=== PATIENT | female | born 1995 | race Caucasian/White ===

== ENCOUNTER 2023-05-11 11:35 | Outpatient (OUT) | payer OTHER, SELFPAY ==
[2023-05-11 12:35] LABS: SARS-CoV-2 Ag NEGATIVE (NEGATIVE)
[2023-05-11 14:55] LABS: SARS-CoV-2 NAA NOT DETECTED (NOT DETECTE)
== END 2023-05-11 11:36 | disposition home or self-care (01) ==
PROVIDERS: PCP Nurse Practitioner Family; Visit Provider Nurse Practitioner Family
DX: R05.1 Acute cough (principal)
CPT/HCPCS: 87635; 87811

== ENCOUNTER 2023-11-01 08:56 | Emergency (ER) | payer OTHER, SELFPAY ==
[2023-11-01 09:01] VITALS: BP 156/92; PULSE 95; TEMP 37.5; O2SAT 96; BMI 36.6
--- NOTE | 2023-11-01 09:04 | XR_ITS ---
The [address] [address] Patient Name: LEONA MENDOZA MRN: [id number] date: 1995 Sex: F Assigned Patient Location: ER Current Patient Location: ER Accession/Order Number: [id number] Exam Date: 11/01/2023 09:29 Report Date: 11/01/2023 10:08 At the request of: CHUCKY CASTRO Procedure: XR chest 2V EXAMINATION: XR chest 2V HISTORY: cough COMPARISON: No relevant comparison available. TECHNIQUE: PA and lateral FINDINGS: LUNGS: No significant pulmonary parenchymal abnormalities. VASCULATURE: No increased pulmonary vasculature. PLEURA: No pneumothorax, effusion, or pleural thickening. CARDIAC: No cardiomegaly or cardiac silhouette abnormality. MEDIASTINUM: No visible mass or adenopathy. BONES: No fracture or visible bone lesion. OTHER: Negative. XR/XR chest 2V IMPRESSION: No acute cardiopulmonary process Electronically authenticated by: LAVERN STERN Date: 11/01/2023 10:08
[2023-11-01] MEDS: IPRATROPIUM/ALBUTEROL SULFATE 3 ML AMPUL.NEB IH (09:19)
[2023-11-01 09:21] VITALS: PULSE 101; O2SAT 96
[2023-11-01] MEDS: HYDROCODONE BIT/HOMATROP 5 MG/1.5 MG TABLET 1 TAB PO (09:24)
[2023-11-01 09:30] LABS: Influenza Virus A Antigen Negative; Influenza Virus B Antigen Negative; Internal Control Within Normal Limits; SARS-CoV-2 Ag NEGATIVE (NEGATIVE); Strep A Antigen Screen Negative
--- NOTE | 2023-11-01 09:46 | ED.URI1 ---
HPI - URI/Sore Throat General Chief Complaint: Upper Respiratory Infection Stated Complaint: sob Time Seen by Provider: 11/01/23 08:57 Source: patient Limitations: no limitations History of Present Illness HPI Narrative: Patient presents to ED complaining of upper respiratory infection. She was seen on Monday at the urgent care and started on Zithromax and steroids and inhaler and a cough medication. She states she still cannot stop coughing and she has a lot of bronchospasms and irritation. She has been taking the antibiotic but she has not been taking all of the other medication. She has been on the steroids. She came in with a low-grade fever and mild tachycardia at 101. Both of her kids have been sick at home with similar symptoms. Related Data Home Medications ?Medication ?Instructions ?Recorded ?Confirmed albuterol sulfate 90 mcg/actuation 2 puff inhalation Q4H PRN 11/01/23 11/01/23 aerosol inhaler shortness of breath or wheezing azithromycin 250 mg tablet 250 mg PO DAILY 11/01/23 11/01/23 Previous Rx's ?Medication ?Instructions ?Recorded hydrocodone-homatropine 5 mg-1.5 5 ml PO Q6H PRN cough #60 mL 11/01/23 mg/5 mL (5 mL) oral syrup (Hycodan) Allergies Allergy/AdvReac Type Severity Reaction Status Date / Time Penicillins AdvReac Intermediate yeast Verified 11/01/23 09:01 infection Review of Systems ROS Status of ROS 10 or more systems reviewed and unremarkable except as noted in history and below Exam Narrative Exam Narrative: Time Seen: [] Vital Signs: [Per nurse's notes.] General: [Alert] Skin: [Warm, dry, no rash.] Head: [Normocephalic, atraumatic.] Neck: [Supple, trachea midline.] Eye: [Pupils are equal, round and reactive to light, extraocular movements are intact, normal conjunctiva.] Ears, nose, mouth and throat: oral mucosa moist. Cardiovascular: [Regular rate and rhythm, no murmur.] Respiratory: [Right lower lobe rhonchi. Bronchospasms with severe coughing on examrespirations are non-labored, breath sounds are equal.] Chest wall: [No tenderness, no deformity.] Gastrointestinal: [Soft, nontender, non distended, normal bowel sounds.] MSK: 5 out of 5 muscle strength x 4 extremities no calf pain or edema Lymphatics: [No lymphadenopathy.] Psychiatric: [Cooperative, appropriate mood & affect.] Neurological: [Alert and oriented to person, place, time, and situation, no focal neurological deficit observed.] Constitutional Vital Signs, click to edit/add: Last Vital Signs Temp 99.5 F 11/01/23 09:01 Pulse 101 H 11/01/23 09:21 Resp 20 11/01/23 09:01 BP 156/92 H 11/01/23 09:01 Pulse Ox 96 11/01/23 09:21 O2 Del Method Room Air 11/01/23 09:21 Course Vital Signs Vital signs: Vital Signs Temperature 99.5 F 11/01/23 09:01 Pulse Rate 95 H 11/01/23 09:01 Respiratory Rate 20 11/01/23 09:01 Blood Pressure 156/92 H 11/01/23 09:01 Pulse Oximetry 96 11/01/23 09:01 Oxygen Delivery Method Room Air 11/01/23 09:01 Temperature 99.5 F 11/01/23 09:01 Pulse Rate 101 H 11/01/23 09:21 Respiratory Rate 20 11/01/23 09:01 Blood Pressure 156/92 H 11/01/23 09:01 Pulse Oximetry 96 11/01/23 09:21 Oxygen Delivery Method Room Air 11/01/23 09:21 MDM - URI/Sore Throat MDM Narrative Medical decision making narrative: Patient was given a DuoNeb here as well as some Hycodan p.o. which I think will help with her cough. She was also given Tylenol for her low-grade fever. Patient is feeling better after a DuoNeb and Hycodan. Chest x-ray clear showing no pneumonia. Vital signs improved. Patient is to be discharged home continue her antibiotics and steroids and inhaler. I will also discharge her with Hycodan to help with cough suppression. Patient and family are comfortable care plan for home. Differential Diagnosis Differential diagnosis: Likely upper respiratory infection, viral infection, bronchitis and influenza Medical Records Attestation: I reviewed the patient's medical records. Lab Data Attestation: I reviewed the patient's lab results. Labs: Lab Results 11/01/23 Range/Units 09:10 Influenza Type A Ag Negative Influenza Type B Ag Negative SARS-CoV-2 Ag (CV2AG) Negative (NEGATIVE) Streptococcus Screen Negative Imaging Data Chest x-ray: Radiologist's impression: ITS Impressions Chest X-Ray 11/01/23 09:04 IMPRESSION: No acute cardiopulmonary process Electronically authenticated by: LAVERN STERN Date: 11/01/2023 10:08 Discharge Plan Discharge Stand Alone Forms: Portal Instructions Chief Complaint: Upper Respiratory Infection Clinical Impression: Upper respiratory infection Patient Disposition: Home, Self-Care Time of Disposition Decision: 10:17 Condition: Good Mode of Transportation: Private Vehicle Prescriptions / Home Meds: New hydrocodone-homatropine [Hycodan] 5-1.5 mg/5 mL (5 mL) syrup 5 ml PO Q6H PRN (Reason: cough) Qty: 60 0RF No Action azithromycin 250 mg tablet 250 mg PO DAILY albuterol sulfate 90 mcg/actuation HFA aerosol inhaler 2 puff INHALATION Q4H PRN (Reason: shortness of breath or wheezing) Print Language: Gabonese Instructions: Upper Respiratory Infection (ED), Acute Bronchitis (ED) Referrals: ZAIRE TIJERINA [Primary Care Provider] - 1 week
[2023-11-01] MEDS: ACETAMINOPHEN 325 MG TABLET 650 MG PO (09:47)
[2023-11-01 10:30] VITALS: PULSE 86; O2SAT 97
== END 2023-11-01 10:32 | disposition home or self-care (01) ==
LOC: ER 10:40
PROVIDERS: Emergency Provider Emergency Medicine; PCP Nurse Practitioner Family
DX: J06.9 Acute upper respiratory infection, unspecified (principal); Z79.899 Other long term (current) drug therapy; Z20.822 Contact with and (suspected) exposure to COVID-19
CPT/HCPCS: 71046; 87070; 87804; 87811; 87880; 94640; 99284

== ENCOUNTER 2024-07-28 10:55 | Emergency (ER) | payer OTHER, SELFPAY ==
[2024-07-28 10:59] VITALS: BP 146/89; PULSE 91; TEMP 37.2; O2SAT 98; BMI 41.6
--- OUTSIDE RECORDS SUMMARY | 2024-07-28 11:02 | XMS_ITS | CCD ---
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 Duplex spectral Doppler document arterial and venous spectral waveforms documented within the major arterial inflow and venous outflow of both ovaries. Arterial and venous Doppler duplex spectral waveforms were evaluated. FINDINGS: UTERUS: Size: 11.8 x 7.2 x 4.6 cm. Masses: None. Endometrium: 3 mm. RIGHT OVARY: 6.3 x 5.6 x 4.7 cm.The arterial and venous waveforms are within normal limits. Simple appearing cystic structure without internal septations measuring approximately 5.6 x 4.8 x 4.9 cm, previously measuring up to 4.2 cm LEFT OVARY: 2.4 x 2.2 x 1.5 cm. The arterial and venous waveforms are within normal limits. Unremarkable. FREE FLUID: None. URINARY BLADDER: Unremarkable. IMPRESSION: 1. Enlarging right ovarian cystic structure (5.6 cm versus 4.2 cm on 05/31/2024), though without suspicious features. Follow-up sonographic evaluation in 6-12 months is recommended. 2. Ovaries with preserved vascular flow at the time scanning. Mattie MILLARD, et. al. O-RADS US Risk Stratification and Management System: A Consensus Guideline from the ACR Ovarian-Adnexal Reporting and Data System Committee. Radiology 2020 294:1, 168-415 Finalized by Mio Alvarez MD on 07/26/2024 10:23 AM Normal [facility] CHLAMYDIA/GC BY PCRon 2023 CHLAMYDIA/GC BY PCR SPECIMEN SOURCE CERVIX CHLAMYDIA DNA(PCR) Negative (qualifier value) Chlamydia trachomatis not detected by nucleic acid amplification. This does not exclude the possibility of infection because results are dependent on adequate specimen collection. GONORRHOEAE DNA(PCR) Negative (qualifier value) Neisseria gonorrhoeae not detected by nucleic acid amplification. This does not exclude the possibility of infection because results are dependent on adequate specimen collection. Normal [facility] Comment on above: Performed By: #### C GS #### [facility] ([id number]) [address] [place] [address] URINALYSISon 06-24-2024 Bilirubin Ql (U) Negative Normal NEG [facility] Comment on above: Performed By: #### U A #### [facility] ([id number]) [address], [address] [place] [address] BLOOD/HGB Trace Abnormal NEG [facility] Comment on above: Performed By: #### U A #### [facility] ([id number]) [address], [address] [place] [address] Color (U) YELLOW Normal YELLOW [facility] Comment on above: Performed By: #### U A #### [facility] ([id number]) [address], [address] [place] [address] Glucose Ql (U) Negative Normal NEG [facility] Comment on above: Performed By: #### U A #### [facility] ([id number]) [address], [address] [place] [address] Ketones Ql (U) Negative Normal NEG [facility] Comment on above: Performed By: #### U A #### [facility] ([id number]) [address], [address] [place] [address] Leukocyte esterase Test strip Ql (U) Negative Normal NEG [facility] Comment on above: Performed By: #### U A #### [facility] ([id number]) [address], [address] [place] [address] MUCOUS PRESENT Abnormal NONE [facility] Comment on above: Performed By: #### U A #### [facility] ([id number]) [address], [address] [place] [address] Nitrite Ql (U) Negative Normal NEG [facility] Comment on above: Performed By: #### U A #### [facility] ([id number]) [address], [address] [place] [address] pH (U) 6.0 [pH] Normal 5.0-8.5 [facility] Comment on above: Performed By: #### U A #### [facility] ([id number]) [address], [address] [place] [address] Protein Ql (U) 30 mg/dL Abnormal NEG [facility] Comment on above: Performed By: #### U A #### [facility] ([id number]) [address], [address] [place] [address] R.B.CELLS 2 /hpf Normal 0-5 [facility] Comment on above: Performed By: #### U A #### [facility] ([id number]) [address], [address] [place] [address] Specific gravity (U) [Rel density] 1.036 High 1.003-1.035 [facility] Comment on above: Performed By: #### U A #### [facility] ([id number]) [address], [address] [place] [address] SQUAMOUS EPITHELIUM 9 /hpf High 0-5 [facility] Comment on above: Performed By: #### U A #### [facility] ([id number]) [address], [address] [place] [address] TURBIDITY CLEAR Normal CLEAR [facility] Comment on above: Performed By: #### U A #### [facility] ([id number]) [address], [address] [place] [address] Urobilinogen (U) [Mass/Vol] mg/dL Normal <1.1 [facility] Comment on above: Performed By: #### U A #### [facility] ([id number]) [address], [facility] [address] [place] [address] W.B.CELLS 1 /hpf Normal 0-5 [facility] Comment on above: Performed By: #### U A #### [facility] ([id number]) [address], [address] [address] URINE CULTUREon 06-24-2024 Bacteria identified Cx Nom (U) CULTURE RESULTS >100,000 ORGANISMS/ML NORMAL UROGENITAL PERCY Normal [facility] Comment on above: Performed By: #### 6 30-4 #### [facility] ([id number]) [address], [address] [address] Urinalysison 06-24-2024 Bilirubin Ql (U) Negative Negative^Ne g ative [facility] Color (U) YELLOW YELLOW^YELLO [facility] Epithelial cells Auto (Urine sed) [#/Area] 9 High [facility] Glucose (U) [Mass/Vol] Negative Negative^Neg ative mg/dL [facility] Hemoglobin Auto test strip Ql (U) Trace Abnormal Negative^Neg ative [facility] Interpretation and review of laboratory results Abnormal [facility] Ketones (U) [Mass/Vol] Negative Negative^Neg ative mg/dL [facility] Leukocyte esterase Auto test strip Ql (U) Negative Negative^Neg ative [facility] Mucus Ql (Urine sed) PRESENT Abnormal NONE^NONE [facility] Nitrite Auto test strip Ql (U) Negative Negative^Neg ative [facility] pH (U) 6 [pH] 5.0 - 8.5 [facility] Protein (U) [Mass/Vol] 30 mg/dL Abnormal Negative^Neg ative [facility] RBC Auto (Urine sed) [#/Area] 2 [facility] Specific gravity Refractometry automated (U) [Rel density] 1.036 High 1.003 - 1.035 [facility] Turbidity Ql (U) CLEAR CLEAR^CLEAR [facility] Urobilinogen Qn (U) NINF [facility] WBC Auto (Urine sed) [#/Area] 1 [facility] VAGINITIS PANEL PCRon 2023 VAGINITIS PANEL PCR BACT. VAGINOSIS DNA Not detected (qualifier value) Qualitative results are reported based on detection and quantitation of targeted organism markers which include: Lactobacillus spp. (L. crispatus and L. jensenii), Gardnerella vaginalis, Atopobium vaginae, Bacterial Vaginosis Associated Bacteria-2 (BVAB-2) and Megasphaera-1 MARIA G SPECIES DNA Not detected (qualifier value) Maria G species not detected include: C. albicans, C. tropicalis, C. parapsilosis or C. dubliniensis MARIA G KRUSEI DNA Not detected (qualifier value) No Maria G krusei detected MARIA G GLABRATA DNA Not detected (qualifier value) No Maria G glabrata detected TRICHOMONAS VAG DNA Not detected (qualifier value) No Trichomonas vaginalis detected NOTE BD MAX Vaginal Panel has not been evaluated for patients under 18 years old. Results for these patients should be reviewed and assessed in accordance with clinical presentation to determine patient diagnosis. Normal [facility] Comment on above: Performed By: #### V PPCR #### [facility] ([id number]) [address] [place] [address] CBC AND AUTO DIFFon 06-12-20 24 ABSOLUTE BASOPHIL 0.0 X10E9/L Normal 0.0-0.2 [facility] Comment on above: Performed By: #### C BCA, CMP ####[facility] ([id number])[address] [place] [address] ABSOLUTE NEUTROPHIL 8.0 X10E9/L High 1.5-6.6 [facility] Comment on above: Performed By: #### C BCA, CMP ####[facility] ([id number])[address] [place] [address] Basophils/100 WBC (Bld) 0.2 % Normal [facility] Comment on above: Performed By: #### C JACQUI, CMP ####[facility] ([id number])[address] [place] [address] Eosinophils (Bld) [#/Vol] 0.0 10*3/uL Normal 0.0-0.4 [facility] Comment on above: Performed By: #### C JACQUI, CMP ####[facility] ([id number])[address] [place] [address] Eosinophils/100 WBC (Bld) 0.3 % Normal [facility] Comment on above: Performed By: #### C JACQUI, CMP ####[facility] ([id number])[address] [place] [address] Erythrocyte distribution width (RBC) [Ratio] 13.9 % Normal 11.5-15.0 [facility] Comment on above: Performed By: #### C JACQUI, CMP ####[facility] ([id number])[address] [place] [address] Hematocrit (Bld) [Volume fraction] 42.9 % Normal 35-47 [facility] Comment on above: Performed By: #### C JACQUI, CMP ####[facility] ([id number])[address] [place] [address] Hemoglobin (Bld) [Mass/Vol] 14.7 g/dL Normal 11.7-15.5 [facility] Comment on above: Performed By: #### C JACQUI, CMP ####[facility] ([id number])[address] [place] [address] Lymphocytes (Bld) [#/Vol] 0.5 10*3/uL Low 1.0-3.5 [facility] Comment on above: Performed By: #### C JACQUI, CMP ####[facility] ([id number])[address] [place] [address] 264[address] Lymphocytes/100 WBC (Bld) 5.4 % Normal [facility] Comment on above: Performed By: #### C BCA, CMP ####[facility] ([id number])[address] [place] [address] MCH (RBC) [Entitic mass] 29.8 pg Normal 27-34 [facility] Comment on above: Performed By: #### C BCA, CMP ####[facility] ([id number])[address] [place] [address] MCHC (RBC) [Mass/Vol] 34.3 g/dL Normal 32-36 [facility] Comment on above: Performed By: #### C BCA, CMP ####[facility] ([id number])[address] [place] [address] MCV (RBC) [Entitic vol] 87 fL Normal 80-100 [facility] Comment on above: Performed By: #### C BCA, CMP ####[facility] ([id number])[address] [place] [address] Monocytes (Bld) [#/Vol] 0.3 10*3/uL Normal 0-0.9 [facility] Comment on above: Performed By: #### C BCA, CMP ####[facility] ([id number])[address] [place] [address] 7[address] Monocytes/100 WBC (Bld) 3.7 % Normal [facility] Comment on above: Performed By: #### C BCA, CMP ####[facility] ([id number])[address] [place] [address] 92847 Neutrophils/100 WBC (Bld) 90.4 % Normal [facility] Comment on above: Performed By: #### C BCA, CMP ####[facility] ([id number])[address] [place] [address] 7[address] Platelet mean volume (Bld) [Entitic vol] 9.0 fL Normal 7-12 [facility] Comment on above: Performed By: #### C BCA, CMP ####[facility] ([id number])[address] [place] [address] Platelets (Bld) [#/Vol] 240 10*3/uL Normal 150-450 [facility] Comment on above: Performed By: #### C JACQUI, CMP ####[facility] ([id number])[address] [place] [address] 7[address] RBC COUNT 4.94 X10E12/L Normal 3.80-5.20 [facility] Comment on above: Performed By: #### C JACQUI, CMP ####[facility] ([id number])[address] [place] [address] WBC (Bld) [#/Vol] 8.8 10*3/uL Normal 4.0-11.0 [facility] Comment on above: Performed By: #### C JACQUI, CMP ####[facility] ([id number])[address] [place] [address] COMPREHENSIVE METABOLIC PANE [facility] 06-12-2024 Albumin [Mass/Vol] 4.8 g/dL Normal 3.2-5.3 [facility] Comment on above: Performed By: #### C BCA, CMP ####[facility] ([id number])[address] [place] [address] ALP [Catalytic activity/Vol] 83 U/L Normal 39-130 [facility] Comment on above: Performed By: #### C BCA, CMP ####[facility] ([id number])[address] [place] [address] 31200 ALT [Catalytic activity/Vol] 19 U/L Normal 0-31 [facility] Comment on above: Performed By: #### C BCA, CMP ####[facility] ([id number])[address] [place] [address], [place] [address] Anion gap [Moles/Vol] 11 mmol/L Normal 5-15 [facility] Comment on above: Performed By: #### C BCA, CMP ####[facility] ([id number])[address] [place] [address], [place] [address] AST [Catalytic activity/Vol] 15 U/L Normal 0-41 [facility] Comment on above: Performed By: #### C BCA, CMP ####[facility] ([id number])[address] [place] [address], [place] [address] Bilirubin [Mass/Vol] 0.7 mg/dL Normal 0.3-1.2 [facility] Comment on above: Performed By: #### C BCA, CMP ####[facility] ([id number])[address] [place] [address] [place] [address] Calcium [Mass/Vol] 9.1 mg/dL Normal 8.5-10.5 [facility] Comment on above: Performed By: #### C BCA, CMP ####[facility] ([id number])[address] [place] [address] [place] [address] Chloride [Moles/Vol] 104 mmol/L Normal 98-109 [facility] Comment on above: Performed By: #### C BCA, CMP ####[facility] ([id number])[address] [place] [address] [place] [address] CO2 [Moles/Vol] 23 mmol/L Normal 22-32 [facility] Comment on above: Performed By: #### C BCA, CMP ####[facility] ([id number])[address] [place] [address], [place] [address] Creatinine [Mass/Vol] 0.59 mg/dL Normal 0.40-1.00 [facility] Comment on above: Result Comment: METH OD TRACEABLE TO IDMS STANDARD Performed By: #### C BCA, CMP ####[facility] ([id number])[address] [place] [address] eGFR (CKD-EPI) NON-RACE DEPENDENT >90 Normal >59 [facility] Comment on above: Result Comment: Reported eGFR is based on the CKD-EPI 2020 equation that does not use a race coefficient. Performed By: #### C BCA, CMP ####[facility] ([id number])[address] [place] [address] Glucose [Mass/Vol] 119 mg/dL High 65-99 [facility] Comment on above: Performed By: #### C BCA, CMP ####[facility] ([id number])[address] [place] [address] Potassium [Moles/Vol] 3.8 mmol/L Normal 3.5-5.0 [facility] Comment on above: Performed By: #### C BCA, CMP ####[facility] ([id number])[address] [place] [address]369 Protein [Mass/Vol] 8.3 g/dL High 6.0-8.0 [facility] Comment on above: Performed By: #### C BCA, CMP ####[facility] ([id number])[address] [place] [address] 78568 Sodium [Moles/Vol] 138 mmol/L Normal 134-146 [facility] Comment on above: Performed By: #### C BCA, CMP ####[facility] ([id number])[address] [place] [address]18 Urea nitrogen [Mass/Vol] 19 mg/dL Normal 5-23 [facility] Comment on above: Performed By: #### C BCA, CMP ####[facility] ([id number])[address] [place] [address]666 HCG ( test) Ql (U)o n 06-12-2024 Beta HCG ( test) Ql (U) Negative Normal NEG [facility] Comment on above: Performed By: #### 2 106-3 ####[facility] ([id number])[address] [place] [address] URN MACROSCOPIC NURon 2023 BILIRUBIN THALIA Negative Normal NEG [facility] Comment on above: Performed By: #### N UM ####[facility] ([id number])[address] [place] [address] [place] [address] BLOOD/HGB THALIA Trace Abnormal NEG [facility] Comment on above: Performed By: #### N UM ####[facility] ([id number])[address] [place] [address] [place] [address] GLUCOSE THALIA Negative Normal NEG [facility] Comment on above: Performed By: #### N UM ####[facility] ([id number])[address] [place] [address] [place] [address] KETONES THALIA Negative Normal NEG [facility] Comment on above: Performed By: #### N UM ####[facility] ([id number])[address] [place] [address] [place] [address] LEUKOCYTE ESTERASE THALIA Negative Normal NEG [facility] Comment on above: Performed By: #### N UM ####[facility] ([id number])[address] [place] [address] [place] [address] NITRITE THALIA Negative Normal NEG [facility] Comment on above: Performed By: #### N UM ####[facility] ([id number])[address] [place] [address] [place] [address] PH THALIA 6.5 Normal 5.0-8.5 [facility] Comment on above: Performed By: #### N UM ####[facility] ([id number])[address] [place] [address] PROTEIN THALIA Trace Abnormal NEG [facility] Comment on above: Performed By: #### N UM ####[facility] ([id number])[address] [place] [address] SPECIFIC GRAVITY THALIA 1.025 Normal 1.003-1.035 [facility] Comment on above: Performed By: #### N UM ####[facility] ([id number])[address] [place] [address] 09906 UROBILINOGEN THALIA 0.2 eu/dL Normal <1.1 [facility] Comment on above: Performed By: #### N UM ####[facility] ([id number])[address] [place] [address] COMPLETE BLOOD COUNTon 05-31 Erythrocyte distribution width (RBC) [Ratio] 13.9 % Normal 11.5-15.0 [facility] Comment on above: Performed By: #### C CAROL, THYR #### [facility] ([id number]) [address] [place] [address] Hematocrit (Bld) [Volume fraction] 42.2 % Normal 35-47 [facility] Comment on above: Performed By: #### C BC, THYR #### [facility] ([id number]) [address], [address] [place] [address] Hemoglobin (Bld) [Mass/Vol] 14.1 g/dL Normal 11.7-15.5 [facility] Comment on above: Performed By: #### C BC, THYR #### [facility] ([id number]) [address], [address] [place] [address] MCH (RBC) [Entitic mass] 29.3 pg Normal 27-34 [facility] Comment on above: Performed By: #### C CAROL, THYR #### [facility] ([id number]) [address], [address] [place] [address] MCHC (RBC) [Mass/Vol] 33.4 g/dL Normal 32-36 [facility] Comment on above: Performed By: #### C CAROL, THYR #### [facility] ([id number]) [address] [place] [address] MCV (RBC) [Entitic vol] 88 fL Normal 80-100 [facility] Comment on above: Performed By: #### C CAROL, THYR #### [facility] ([id number]) [address], [address] [place] [address] Platelet mean volume (Bld) [Entitic vol] 9.4 fL Normal 7-12 [facility] Comment on above: Performed By: #### C CAROL, THYR #### [facility] ([id number]) [address] [place] [address] Platelets (Bld) [#/Vol] 238 10*3/uL Normal 150-450 [facility] Comment on above: Performed By: #### C CAROL, THYR #### [facility] ([id number]) [address] [place] [address] RBC COUNT 4.80 X10E12/L Normal 3.80-5.20 [facility] Comment on above: Performed By: #### C BC, THYR #### [facility] ([id number]) [address] [place] [address] WBC (Bld) [#/Vol] 6.3 10*3/uL Normal 4.0-11.0 [facility] Comment on above: Performed By: #### C CAROL, THYR #### [facility] ([id number]) [address] [place] [address] THYROID PROFILEon 05-31-2024 Free T4 [Mass/Vol] 0.77 ng/dL Normal 0.61-1.60 [facility] Comment on above: Result Comment: NEW REFERENCE RANGE FOR PEDIATRIC PATIENTS Performed By: #### C BC, THYR #### [facility] ([id number]) [address] [place] [address] TSH 3.51 uIU/mL Normal 0.49-4.67 [facility] Comment on above: Result Comment: NEW REFERENCE RANGE FOR PEDIATRIC PATIENTS Performed By: #### C BC, THYR #### [facility] ([id number]) [address] [place] [address] US PELVIC WITH TRANSVAGINALo n 05-31-2024 US PELVIC WITH TRANSVAGINAL US PELVIC WITH TRANSVAGINAL US PELVIC WITH TRANSVAGINAL HISTORY: Dysmenorrhea, menorrhagia with irregular cycle, painful periods COMPARISON: 02/24/2022 TECHNIQUE: Transabdominal and transvaginal sonographic evaluation of the pelvis. Transabdominal imaging performed to evaluate for extra adnexal pelvic pathology. Transvaginal imaging performed for better delineation of the adnexal and endometrial contents. Color Doppler used. FINDINGS: Uterus: 9.8 x 6.4 x 5.3 centimeters Endometrial Thickness: 0.6 cm Right Ovary: 4.9 x 4.3 x 3.6 cm Left Ovary: 3.6 x 2.9 x 2.1 cm The uterus demonstrates appropriate size and echo pattern. The endometrium is unremarkable. Trace fluid within the endocervical canal There is a homogeneously hypoechoic structure in the right ovary, measures 4.2 x 3.1 x 2.9 cm . There is no internal associated Doppler flow. Physiologic peripheral follicles within the otherwise unremarkable left ovary. Normal color ovarian flow bilaterally No pathologic free fluid. IMPRESSION: A hypoechoic lesion in the right ovary measuring 4.2 cm, potentially hemorrhagic cyst or endometrioma. Depending on context/suspicion, follow-up ultrasound after 2-3 cycles versus MRI correlation could be pursued.. Recommendations for adnexal cyst follow-up per Society of Radiologists in Ultrasound 2009 consensus statement on management of asymptomatic and ovarian and other adnexal cysts (Anna et al., Radiology 2010 256: 943-54). Approved by Galo Salgado DO on 05/31/2024 10:40 AM IManny MD have personally reviewed the image(s) and agree with and/or edited the report Finalized by Manny Silva MD on 05/31/2024 11:29 AM Normal [facility] XR CHEST 1 VWon 05-12-2024 XR CHEST 1 VW XR CHEST 1 VW XR CHEST 1 VW 05/12/2024 12:35 AM INDICATION: Chest pain, left lateral breast pain COMPARISON: XR chest 10/30/2023 TECHNIQUE: AP upright radiographic view(s) obtained. FINDINGS: Lines/Tubes/Devices: None. Respiratory: No pneumothorax, pleural effusion, or focal consolidation. Cardiomediastinum: Nonenlarged. IMPRESSION: * No acute pulmonary process. Approved by Resident: Pawan Tolliver MD on 05/12/2024 12:52 AM IRobert MD have personally reviewed the image(s) and agree with and/or edited the report Finalized by Robert Holland MD on 05/12/2024 1:05 AM Normal [facility] XR HUMERUS RT MIN 2 VWSon XR HUMERUS RT MIN 2 VWS XR HUMERUS RT MIN 2 VWS XR HUMERUS RT MIN 2 VWS HISTORY: Right upper arm pain, decreased range of motion, right arm injury. COMPARISON: None. FINDINGS: No acute fracture or dislocation. No radiopaque foreign body. Osseous structures are well mineralized without significant degenerative changes. Visualized right lung is clear. IMPRESSION: Unremarkable radiographs of the humerus. Approved by Resident Cortney Arreola MD on 01/07/2024 11:54 PM Mc Vaughn MD have personally reviewed the image(s) and agree with and/or edited the report Finalized by Mc Nathan MD on 01/08/2024 12:00 AM Normal [facility] BASIC METABOLIC PANLon 12-04 Anion gap [Moles/Vol] 6 mmol/L Normal -15 [facility] Comment on above: Performed By: #### [facility], 94130-2 #### [facility] ([id number]) [address] [place] [address] 60826 Calcium [Mass/Vol] 8.8 mg/dL Normal 8.5-10.5 [facility] Comment on above: Performed By: #### [facility], #### [facility] ([id number]) [address] [place] [address] 63129 Chloride [Moles/Vol] 105 mmol/L Normal 98-109 [facility] Comment on above: Performed By: #### C KELBY OSMAN, #### [facility] ([id number]) [address] [place] [address] 20294 CO2 [Moles/Vol] 24 mmol/L Normal 22-32 [facility] Comment on above: Performed By: #### [facility], 49021-3 #### [facility] ([id number]) [address] [place] [address] 96084 Creatinine [Mass/Vol] 0.59 mg/dL Normal 0.40-1.00 [facility] Comment on above: Result Comment: METH OD TRACEABLE TO IDMS STANDARD Performed By: #### C KELBY OMSAN, #### [facility] ([id number]) [address] [place] [address] 35983 eGFR (CKD-EPI) NON-RACE DEPENDENT >90 Normal >59 [facility] Comment on above: Result Comment: Reported eGFR is based on the CKD-EPI 2020 equation that does not use a race coefficient. Performed By: #### C KELBY OSMAN, #### [facility] ([id number]) [address] [place] [address] 42305 Glucose [Mass/Vol] 111 mg/dL High 65-99 [facility] Comment on above: Performed By: #### C KELBY OSMAN, #### [facility] ([id number]) [address] [place] [address] 26010 Potassium [Moles/Vol] 3.7 mmol/L Normal 3.5-5.0 [facility] Comment on above: Performed By: #### [facility], #### [facility] ([id number]) [address] [place] [address] 85068 Sodium [Moles/Vol] 135 mmol/L Normal 134-146 [facility] Comment on above: Performed By: #### KELBY Loco BCA, #### [facility] ([id number]) [address] [place] [address] 27477 Urea nitrogen [Mass/Vol] 16 mg/dL Normal 5-23 [facility] Comment on above: Performed By: #### Beronica [facility]SM[facility], #### [facility] ([id number]) [address] [place] [address] 03206 CBC AND AUTO DIFFon 12-05-19 24 ABSOLUTE BASOPHIL 0.0 X10E9/L Normal 0.0-0.2 [facility] Comment on above: Performed By: #### KELBY Loco BCA, #### [facility] ([id number]) [address] [place] [address] 19279 ABSOLUTE NEUTROPHIL 4.8 X10E9/L Normal 1.5-6.6 [facility] Comment on above: Performed By: #### C KELBY OSMAN, #### [facility] ([id number]) [address] [place] [address] 40383 Basophils/100 WBC (Bld) 0.5 % Normal [facility] Comment on above: Performed By: #### KELBY Loco BCA, #### [facility] ([id number]) [address] [place] [address] 37949 Eosinophils (Bld) [#/Vol] 0.1 10*3/uL Normal 0.0-0.4 [facility] Comment on above: Performed By: #### KELBY Loco BCA, #### [facility] ([id number]) [address] [place] [address] 73946 Eosinophils/100 WBC (Bld) 1.5 % Normal [facility] Comment on above: Performed By: #### Beronica [facility], #### [facility] ([id number]) [address] [place] [address] 55709 Erythrocyte distribution width (RBC) [Ratio] 13.6 % Normal 11.5-15.0 [facility] Comment on above: Performed By: #### Beronica [facility]SM[facility], #### [facility] ([id number]) [address] [place] [address] 13543 Hematocrit (Bld) [Volume fraction] 39.5 % Normal 35-47 [facility] Comment on above: Performed By: #### Beronica [facility]SM[facility], #### [facility] ([id number]) [address] [place] [address] 19881 Hemoglobin (Bld) [Mass/Vol] 13.2 g/dL Normal 11.7-15.5 [facility] Comment on above: Performed By: #### Beronica [facility]SMAN [facility], #### [facility] ([id number]) [address] [place] [address] 29800 Lymphocytes (Bld) [#/Vol] 2.3 10*3/uL Normal 1.0-3.5 [facility] Comment on above: Performed By: #### KELBY Loco BCA, #### [facility] ([id number]) [address] [place] [address] 55695 Lymphocytes/100 WBC (Bld) 29.7 % Normal [facility] Comment on above: Performed By: #### KELBY Loco BCA, #### [facility] ([id number]) [address] [place] [address] 81790 MCH (RBC) [Entitic mass] 29.0 pg Normal 27-34 [facility] Comment on above: Performed By: #### KELBY Loco BCA, #### [facility] ([id number]) [address] [place] [address] 26639 MCHC (RBC) [Mass/Vol] 33.4 g/dL Normal 32-36 [facility] Comment on above: Performed By: #### KELBY Loco BCA, #### [facility] ([id number]) [address] [place] [address] 43183 MCV (RBC) [Entitic vol] 87 fL Normal 80-100 [facility] Comment on above: Performed By: #### KELBY Loco BCA, #### [facility] ([id number]) [address] [place] [address] 28843 Monocytes (Bld) [#/Vol] 0.5 10*3/uL Normal 0-0.9 [facility] Comment on above: Performed By: #### KELBY Loco BCA, #### [facility] ([id number]) [address] [place] [address] 03833 Monocytes/100 WBC (Bld) 6.1 % Normal [facility] Comment on above: Performed By: #### KELBY Loco BCA, #### [facility] ([id number]) [address] [place] [address] 48870 Neutrophils/100 WBC (Bld) 62.2 % Normal [facility] Comment on above: Performed By: #### KELBY Loco BCA, #### [facility] ([id number]) [address] [place] [address] 57998 Platelet mean volume (Bld) [Entitic vol] 8.9 fL Normal 7-12 [facility] Comment on above: Performed By: #### KELBY Loco BCA, #### [facility] ([id number]) [address] [place] [address] 57258 Platelets (Bld) [#/Vol] 285 10*3/uL Normal 150-450 [facility] Comment on above: Performed By: #### KELBY Loco BCA, #### [facility] ([id number]) [address] [place] [address] 63270 RBC COUNT 4.56 X10E12/L Normal 3.80-5.20 [facility] Comment on above: Performed By: #### Beronica [facility]SMAN [facility], #### [facility] ([id number]) [address] [place] [address] 11699 WBC (Bld) [#/Vol] 7.7 10*3/uL Normal 4.0-11.0 [facility] Comment on above: Performed By: #### KELBY Loco BCA, #### [facility] ([id number]) [address] [place] [address] 35318 MAGNESIUMon 12-05-2023 Magnesium [Mass/Vol] 2.1 mg/dL Normal 1.8-2.6 [facility] Comment on above: Performed By: #### KELBY Loco BCA, #### [facility] ([id number]) [address] [place] [address] 60242 XR CHEST 2 VWSon 10-30-2023 XR CHEST 2 VWS XR CHEST 2 VWS History: Cough Technique: Frontal and lateral views the chest were obtained. Comparison: 06/27/2023 Findings: There is no evidence for active cardiovascular or pulmonary disease. The heart size is within normal limits and the lung hawthorne are clear. Impression: Normal chest. Finalized by Russell Henry MD on 10/30/2023 1:04 AM Normal [facility] URINALYSISon 10-16-2023 Bilirubin Ql (U) Negative Normal NEG [facility] BLOOD/HGB Negative Normal NEG [facility] Color (U) YELLOW Normal YELLOW [facility] Glucose Ql (U) Negative Normal NEG [facility] Ketones Ql (U) Negative Normal NEG [facility] Leukocyte esterase Test strip Ql (U) Negative Normal NEG [facility] Nitrite Ql (U) Negative Normal NEG [facility] pH (U) 5.5 [pH] Normal 5.0-8.5 [facility] Protein Ql (U) Negative Normal NEG [facility] Specific gravity (U) [Rel density] 1.026 Normal 1.003-1.035 [facility] TURBIDITY CLEAR Normal CLEAR [facility] Urobilinogen (U) [Mass/Vol] mg/dL Normal <1.1 [facility] URINE CULTUREon 10-16-2023 Bacteria identified Cx Nom (U) CULTURE RESULTS 10-50,000 ORGANISMS/mL NORMAL UROGENITAL PERCY Normal [facility] Comment on above: Performed By: #### 6 30-4 #### [facility] ([id number]) [address], [address] [place] [address] XR HUMERUS LT MIN 2 VWSon XR HUMERUS LT MIN 2 VWS XR HUMERUS LT MIN 2 VWS 2 views of the left humerus dated 08/10/2023 at 6:55 PM INDICATION: Pain in the left arm FINDINGS: No comparisons available. There is a linear foreign body projecting over the posterior medial soft tissues of the arm, approximately 6 cm above the elbow. No acute osseous abnormalities seen in the left humerus. IMPRESSION: 1. No acute osseous abnormality seen in the left humerus. 2. Linear foreign body projecting over the posteromedial soft tissues of the left arm. Finalized by Honey Dupree MD on 08/10/2023 7:39 PM Normal [facility] CBC AUTO DIFFon 05-04-2022 BASO # 0.0 103/ul Normal 0.0-0.1 [facility] Comment on above: Performed By: #### T 7, TSH, CMP, PREGQNT #### [facility] [address] [place] [address] Dr. Wilian Santos Basophils/100 WBC (Bld) 0.3 % Normal 0.2-2.0 [facility] Comment on above: Performed By: #### T 7, TSH, CMP, PREGQNT #### [facility] [address] [place] [address] Dr. Wilian Santos EO # 0.1 103/ul Normal 0.0-0.7 [facility] Comment on above: Performed By: #### T 7, TSH, CMP, PREGQNT #### [facility] [address] [place] [address] Dr. Wilian Santos Eosinophils/100 WBC (Bld) 0.9 % Normal 0.9-7.0 [facility] Comment on above: Performed By: #### T 7, TSH, CMP, PREGQNT #### [facility] [address] [place] [address] Dr. Wilian Santos Erythrocyte distribution width (RBC) [Ratio] 14.1 % Normal 11.0-15.0 [facility] Comment on above: Performed By: #### T 7, TSH, CMP, PREGQNT #### [facility] [address] [place] [address] Dr. Wilian Santos Hematocrit (Bld) [Volume fraction] 40.3 % Normal 36.0-48.0 [facility] Comment on above: Performed By: #### T 7, TSH, CMP, PREGQNT #### [facility] [address] [place] [address] Dr. Wilian Santos Hemoglobin (Bld) [Mass/Vol] 12.9 g/dL Normal 12.0-16.0 [facility] Comment on above: Performed By: #### T 7, TSH, CMP, PREGQNT #### [facility] [address] [address] [address] Wilian Santos IG # 0.04 10e3/ul Critically high 0.00-0.03 [place] Comment on above: Performed By: #### T 7, TSH, CMP, PREGQNT #### [facility] [address] [place] [address] Dr. Wilian Santos IG % 0.5 % Normal 0.0-0.5 [facility] Comment on above: Performed By: #### T 7, TSH, CMP, PREGQNT #### [facility] [address] [place] [address] Dr. Wilian Santos LYMPH # 1.7 103/ul Normal 1.2-3.8 [facility] Comment on above: Performed By: #### T 7, TSH, CMP, PREGQNT #### [facility] [address] [place] [address] Dr. Wilian Santos Lymphocytes/100 WBC (Bld) 19.3 % Critically low 20.5-60.0 [facility] Comment on above: Performed By: #### T 7, TSH, CMP, PREGQNT #### [facility] [address] [place] [address] Dr. Wilian Santos MANUAL DIFF REQ NO Normal [facility] Comment on above: Performed By: #### T 7, TSH, CMP, PREGQNT #### [facility] [address] [place] [address] Dr. Wilian Santos MCH (RBC) [Entitic mass] 27.7 pg Normal 26.7-34.0 [facility] Comment on above: Performed By: #### T 7, TSH, CMP, PREGQNT #### [facility] [address] [place] [address] Dr. Wilian Santos MCHC (RBC) [Mass/Vol] 32.0 g/dL Normal 29.9-35.2 [facility] Comment on above: Performed By: #### T 7, TSH, CMP, PREGQNT #### [facility] [address] [place] [address] Dr. Wilian Santos MCV (RBC) [Entitic vol] 86.5 fL Normal 81.0-99.0 [facility] Comment on above: Performed By: #### T 7, TSH, CMP, PREGQNT #### [facility] [address] [place] [address] Dr. Wilian Santos MONO # 0.6 103/ul Normal 0.3-0.8 [facility] Comment on above: Performed By: #### T 7, TSH, CMP, PREGQNT #### [facility] [address] [place] [address] Dr. Wilian Santos Monocytes/100 WBC (Bld) 6.3 % Normal 1.7-12.0 [facility] Comment on above: Performed By: #### T 7, TSH, CMP, PREGQNT #### [facility] [address] [place] [address] Dr. Wilian Santos NEUT # 6.3 103/ul Normal 1.4-6.5 [facility] Comment on above: Performed By: #### T 7, TSH, CMP, PREGQNT #### [facility] [address] [place] [address] Dr. Wilian Santos Neutrophils/100 WBC (Bld) 72.7 % Normal 43.0-75.0 [facility] Comment on above: Performed By: #### T 7, TSH, CMP, PREGQNT #### [facility] [address] [place] [address] Dr. Wilian Santos Platelet mean volume (Bld) [Entitic vol] 10.9 fL Normal 9.5-13.5 [facility] Comment on above: Performed By: #### T 7, TSH, CMP, PREGQNT #### [facility] [address] [place] [address] Dr. Wilian Santos PLT 278 103/ul Normal 150-450 [facility] Comment on above: Performed By: #### T 7, TSH, CMP, PREGQNT #### [facility] [address] [place] [address] Dr. Wilian Santos RBC 4.66 106/ul Normal 4.20-5.40 [facility] Comment on above: Performed By: #### T 7, TSH, CMP, PREGQNT #### [facility] [address] [address] [address] Wilian Santos WBC 8.7 103/ul Normal 4.0-11.0 [facility] Comment on above: Performed By: #### T 7, TSH, CMP, PREGQNT #### [facility] [address] [place] [address] Dr. Wilian Santos FREE THYROXINE INDEX T7on FTI 3.37 Normal 1.30-4.50 [facility] Comment on above: Performed By: #### T 7, TSH, CMP, PREGQNT #### [facility] [address] [place] [address] Dr. Wilian Santos T3U 34.0 % Normal 30.0-39.0 [facility] Comment on above: Performed By: #### T 7, TSH, CMP, PREGQNT #### [facility] [address] [place] [address] Dr. Wilian Santos T4 [Mass/Vol] 9.90 ug/dL Normal 4.80-13.[address] [facility] Comment on above: Performed By: #### T 7, TSH, CMP, PREGQNT #### [facility] [address] [place] [address] Dr. Wilian Santos GLYCOHEMOGLOBIN A1Con 2021 ADA RECOMMENDATION SEE BELOW Normal [facility] Comment on above: Result Comment: ADA RECOMMENDED LIMIT 4.0 - 6.0 ADA THERAPEUTIC TARGET < 7.0 ACTION SUGGESTED > 7.0 Performed By: #### A 1C #### [facility] [address] [place] [address] Dr. Wilian Santos Glucose [Mass/Vol] 108 mg/dL Normal [facility] Comment on above: Performed By: #### A 1C #### [facility] [address] [place] [address] Dr. Wilian Santos HbA1c (Bld) [Mass fraction] 5.4 % Normal 4.5-6.2 [facility] Comment on above: Performed By: #### A 1C #### [facility] [address] [place] [address] Dr. Wilian Santos PREG QUANT HCGon 05-04-2022 HCG QUANT 1387 mIU/mL Normal [facility] Comment on above: Performed By: #### T 7, TSH, CMP, PREGQNT #### [facility] [address] [place] [address] Dr. Wilian Santos HCG RANGE SEE BELOW Normal [facility] Comment on above: Result Comment: 5-50 0.2-1 WEEK 50-500 1-2 WEEKS 100-5,000 2-3 WEEKS 500-10,000 3-4 WEEKS 1,000-50,000 4-5 WEEKS 10,000-100,000 5-6 WEEKS 15,000-200,000 6-8 WEEKS 10,000-100,000 2-3 MONTHS Performed By: #### T 7, TSH, CMP, PREGQNT #### [facility] [address] [place] [address] Dr. Wilian Santos PROF 14(COMP METB)on 022 Albumin [Mass/Vol] 4.0 g/dL Normal 3.4-5.0 [facility] Comment on above: Performed By: #### T 7, TSH, CMP, PREGQNT #### [facility] [address] [place] [address] Dr. Wilian Santos Albumin/Globulin [Mass ratio] 1.1 {ratio} Normal [facility] Comment on above: Performed By: #### T 7, TSH, CMP, PREGQNT #### [facility] [address] [place] [address] Dr. Wilian Santos ALP [Catalytic activity/Vol] 76 U/L Normal 46-116 [facility] Comment on above: Performed By: #### T 7, TSH, CMP, PREGQNT #### [facility] [address] [place] [address] Dr. Wilian Santos ALT [Catalytic activity/Vol] 16 U/L Normal 14-59 [facility] Comment on above: Performed By: #### T 7, TSH, CMP, PREGQNT #### [facility] [address] [address] [address] Wilian Santos Anion gap [Moles/Vol] 8.9 mmol/L Normal [facility] Comment on above: Performed By: #### T 7, TSH, CMP, PREGQNT #### [facility] [address] [address] [address] Wilian Santos AST [Catalytic activity/Vol] 10 U/L Critically low 15-37 [facility] Comment on above: Performed By: #### T 7, TSH, CMP, PREGQNT #### [facility] [address] [place] [address] Dr. Wilian Santos Bilirubin [Mass/Vol] 0.4 mg/dL Normal 0.2-1.0 [facility] Comment on above: Performed By: #### T 7, TSH, CMP, PREGQNT #### [facility] [address] [address] [address] Wilian Santos Calcium [Mass/Vol] 8.8 mg/dL Normal 8.5-10.1 [facility] Comment on above: Performed By: #### T 7, TSH, CMP, PREGQNT #### [facility] [address] [place] [address] Dr. Wilian Santos Chloride [Moles/Vol] 105 mmol/L Normal 98-107 [facility] Comment on above: Performed By: #### T 7, TSH, CMP, PREGQNT #### [facility] [address] [place] [address] Dr. Wilian Santos CO2 [Moles/Vol] 26.4 mmol/L Normal 21.0-32.0 [facility] Comment on above: Performed By: #### T 7, TSH, CMP, PREGQNT #### [facility] [address] [place] [address] Dr. Wilian Santos Creatinine [Mass/Vol] 0.62 mg/dL Normal 0.55-1.02 [facility] Comment on above: Performed By: #### T 7, TSH, CMP, PREGQNT #### [facility] [address] [address] [address] Wilian Santos EGFR-AF [place] >60 Normal >=60 [facility] Comment on above: Performed By: #### T 7, TSH, CMP, PREGQNT #### [facility] [address] [address] [address] Wilian Santos EGFR-NON AF [place] >60 Normal >=60 [facility] Comment on above: Performed By: #### T 7, TSH, CMP, PREGQNT #### [facility] [address] [address] [address] Wilian Santos Globulin (S) [Mass/Vol] 3.8 g/dL Normal [facility] Comment on above: Performed By: #### T 7, TSH, CMP, PREGQNT #### [facility] [address] [place] [address] Dr. Wilian Santos Glucose [Mass/Vol] 92 mg/dL Normal 74-106 [facility] Comment on above: Performed By: #### T 7, TSH, CMP, PREGQNT #### [facility] [address] [address] [address] Wilian Santos Potassium [Moles/Vol] 3.3 mmol/L Critically low 3.5-5.1 [facility] Comment on above: Performed By: #### T 7, TSH, CMP, PREGQNT #### [facility] [address] [address] [address] Wilian Santos Protein [Mass/Vol] 7.8 g/dL Normal 6.4-8.2 [facility] Comment on above: Performed By: #### T 7, TSH, CMP, PREGQNT #### [facility] [address] [address] [address] Wilian Santos Sodium [Moles/Vol] 137 mmol/L Normal 136-145 [facility] Comment on above: Performed By: #### T 7, TSH, CMP, PREGQNT #### [facility] [address] [place] [address] Dr. Wilian Santos Urea nitrogen [Mass/Vol] 15.0 mg/dL Normal 7.0-18.0 [facility] Comment on above: Performed By: #### T 7, TSH, CMP, PREGQNT #### [facility] [address] [place] [address] Dr. Wilian Santos Urea nitrogen/Creatinine [Mass ratio] 24.2 mg/mg Normal [facility] Comment on above: Performed By: #### T 7, TSH, CMP, PREGQNT #### [facility] [address] [place] [address] Dr. Wilian Santos TSHon 05-04-2022 TSH 2.387 uIU/mL Normal 0.358-3.[address] [facility] Comment on above: Performed By: #### T 7, TSH, CMP, PREGQNT #### [facility] [address] [place] [address] Dr. Wilian Santos INSULINon 09-23-2021 Insulin 25.7 uIU/mL Critically high 2.6-24.9 [facility] Comment on above: Performed By: #### I NSULIN #### [facility] [address] [place] [address] Dr. Wilian Santos CBC AUTO DIFFon 09-22-2021 BASO # 0.0 103/ul Normal 0.0-0.1 [facility] Comment on above: Performed By: #### C BC #### [facility] [address] [place] [address] Dr. Wilian Santos Basophils/100 WBC (Bld) 0.3 % Normal 0.2-2.0 [facility] Comment on above: Performed By: #### C BC #### [facility] [address] [place] [address] Dr. Wilian Santos EO # 0.1 103/ul Normal 0.0-0.7 [facility] Comment on above: Performed By: #### C BC #### [facility] [address] [place] [address] Dr. Wilian Santos Eosinophils/100 WBC (Bld) 1.2 % Normal 0.9-7.0 [facility] Comment on above: Performed By: #### C BC #### [facility] [address] [place] [address] Dr. Wilian Santos Erythrocyte distribution width (RBC) [Ratio] 14.0 % Normal 11.0-15.0 [facility] Comment on above: Performed By: #### C BC #### [facility] [address] [place] [address] Dr. Wilian Santos Hematocrit (Bld) [Volume fraction] 42.0 % Normal 36.0-48.0 [facility] Comment on above: Performed By: #### C BC #### [facility] [address] [place] [address] Dr. Wilian Santos Hemoglobin (Bld) [Mass/Vol] 13.6 g/dL Normal 12.0-16.0 [facility] Comment on above: Performed By: #### C BC #### [facility] [address] [place] [address] Dr. Wilian Santos IG # 0.02 10e3/ul Normal 0.00-0.03 [facility] Comment on above: Performed By: #### C BC #### [facility] [address] [place] [address] Dr. Wilian Santos IG % 0.3 % Normal 0.0-0.5 [facility] Comment on above: Performed By: #### C BC #### [facility] [address] [place] [address] Dr. Wilian Santos LYMPH # 2.4 103/ul Normal 1.2-3.8 [facility] Comment on above: Performed By: #### C BC #### [facility] [address] [place] [address] Dr. Wilian Santos Lymphocytes/100 WBC (Bld) 35.9 % Normal 20.5-60.0 [facility] Comment on above: Performed By: #### C BC #### [facility] [address] [place] [address] Dr. Wilian Santos MANUAL DIFF REQ NO Normal [facility] Comment on above: Performed By: #### C BC #### [facility] [address] [place] [address] Dr. Wilian Santos MCH (RBC) [Entitic mass] 27.5 pg Normal 26.7-34.0 [facility] Comment on above: Performed By: #### C BC #### [facility] [address] [place] [address] Dr. Wilian Santos MCHC (RBC) [Mass/Vol] 32.4 g/dL Normal 29.9-35.2 [facility] Comment on above: Performed By: #### C BC #### [facility] [address] [place] [address] Dr. Wilian Santos MCV (RBC) [Entitic vol] 84.8 fL Normal 81.0-99.0 [facility] Comment on above: Performed By: #### C BC #### [facility] [address] [place] [address] Dr. Wilian Santos MONO # 0.4 103/ul Normal 0.3-0.8 [facility] Comment on above: Performed By: #### C BC #### [facility] [address] [place] [address] Dr. Wilian Santos Monocytes/100 WBC (Bld) 6.7 % Normal 1.7-12.0 [facility] Comment on above: Performed By: #### C BC #### [facility] [address] [place] [address] Dr. Wilian Santos NEUT # 3.6 103/ul Normal 1.4-6.5 [facility] Comment on above: Performed By: #### C BC #### [facility] [address] [place] [address] Dr. Wilian Santos Neutrophils/100 WBC (Bld) 55.6 % Normal 43.0-75.0 [facility] Comment on above: Performed By: #### C BC #### [facility] [address] [place] [address] Dr. Wilian Santos Platelet mean volume (Bld) [Entitic vol] 10.7 fL Normal 9.5-13.5 [facility] Comment on above: Performed By: #### C BC #### [facility] [address] [address] [address] Wilian Santos PLT 305 103/ul Normal 150-450 [facility] Comment on above: Performed By: #### C BC #### [facility] [address] [address] [address] Wilian Santos RBC 4.95 106/ul Normal 4.20-5.40 [facility] Comment on above: Performed By: #### C BC #### [facility] [address] [address] [address] Wilian Santos WBC 6.5 103/ul Normal 4.0-11.0 [facility] Comment on above: Performed By: #### C BC #### [facility] [address] [place] [address] Dr. Wilian Santos FREE THYROXINE INDEX T7on FTI 3.27 Normal [facility] Comment on above: Performed By: #### T SH, CMP, T7 #### [facility] [address] [place] [address] Dr. Wilian Santos T3U 33.0 % Normal 23.5-40.5 [facility] Comment on above: Performed By: #### T SH, CMP, T7 #### [facility] [address] [place] [address] Dr. Wilian Santos T4 [Mass/Vol] 9.90 ug/dL Normal 5.53-11.[address] [facility] Comment on above: Performed By: #### T SH, CMP, T7 #### [facility] [address] [place] [address] Dr. Wilian Santos GLYCOHEMOGLOBIN A1Con 2021 ADA RECOMMENDATION ADA THERAPEUTIC TARG ET 6.0 - 7.0 ACTION SUGGESTED > 7.0 Normal [facility] Comment on above: Performed By: #### T 7, TSH, CMP, PREGQNT #### [facility] [address] [place] [address] Dr. Wilian Santos Glucose [Mass/Vol] 108 mg/dL Normal [facility] Comment on above: Performed By: #### T 7, TSH, CMP, PREGQNT #### [facility] [address] [place] [address] Dr. Wilian Santos HbA1c (Bld) [Mass fraction] 5.4 % Normal <=6.0 [facility] Comment on above: Performed By: #### T 7, TSH, CMP, PREGQNT #### [facility] [address] [place] [address] Dr. Wilian Santos PROF 14(COMP METB)on 022 Albumin [Mass/Vol] 4.1 g/dL Normal 3.4-5.0 [facility] Comment on above: Performed By: #### T SH, CMP, T7 #### [facility] [address] [place] [address] Dr. Wilian Santos Albumin/Globulin [Mass ratio] 1.0 {ratio} Normal [facility] Comment on above: Performed By: #### T SH, CMP, T7 #### [facility] [address] [place] [address] Dr. Wilian Santos ALP [Catalytic activity/Vol] 91 U/L Normal 46-116 [facility] Comment on above: Performed By: #### T SH, CMP, T7 #### [facility] [address] [place] [address] Dr. Wilian Santos ALT [Catalytic activity/Vol] 25 U/L Normal 14-59 [facility] Comment on above: Performed By: #### T SH, CMP, T7 #### [facility] [address] [place] [address] Dr. Wilian Santos Anion gap [Moles/Vol] 15.1 mmol/L Normal [facility] Comment on above: Performed By: #### T SH, CMP, T7 #### [facility] [address] [place] [address] Dr. Wliian Santos AST [Catalytic activity/Vol] 14 U/L Critically low 15-37 [facility] Comment on above: Performed By: #### T SH, CMP, T7 #### [facility] [address] [place] [address] Dr. Wilian Santos Bilirubin [Mass/Vol] 0.3 mg/dL Normal 0.2-1.3 [facility] Comment on above: Performed By: #### T ELOY CMP, T7 #### [facility] [address] [place] [address] Dr. Wilian Santos Calcium [Mass/Vol] 9.4 mg/dL Normal 8.5-10.1 [facility] Comment on above: Performed By: #### T ELOY CMP, T7 #### [facility] [address] [place] [address] Dr. Wilian Santos Chloride [Moles/Vol] 104 mmol/L Normal 98-107 [facility] Comment on above: Performed By: #### T ELOY CMP, T7 #### [facility] [address] [place] [address] Dr. Wilian Santos CO2 [Moles/Vol] 25.1 mmol/L Normal 22.0-30.0 [facility] Comment on above: Performed By: #### T ELOY CMP, T7 #### [facility] [address] [place] [address] Dr. Wilian Santos Creatinine [Mass/Vol] 0.58 mg/dL Normal 0.52-1.04 [facility] Comment on above: Performed By: #### T ELOY CMP, T7 #### [facility] [address] [place] [address] Dr. Wilian Santos EGFR-AF PORTUGUESE >60 Normal >=60 [facility] Comment on above: Performed By: #### T ELOY CMP, T7 #### [facility] [address] [place] [address] Dr. Wilian Santos EGFR-NON AF PORTUGUESE >60 Normal >=60 [facility] Comment on above: Performed By: #### T ELOY CMP, T7 #### [facility] [address] [place] [address] Dr. Wilian Santos Globulin (S) [Mass/Vol] 4.2 g/dL Normal [facility] Comment on above: Performed By: #### T ELOY CMP, T7 #### [facility] [address] [place] [address] Dr. Wilian Santos Glucose [Mass/Vol] 92 mg/dL Normal 74-106 [facility] Comment on above: Performed By: #### T ELOY CMP, T7 #### [facility] [address] [place] [address] Dr. Wilian Santos Potassium [Moles/Vol] 4.2 mmol/L Normal 3.4-5.0 [facility] Comment on above: Performed By: #### T ELOY CMP, T7 #### [facility] [address] [place] [address] Dr. Wilian Santos Protein [Mass/Vol] 8.3 g/dL Critically high 6.1-8.2 [facility] Comment on above: Performed By: #### T ELOY CMP, T7 #### [facility] [address] [place] [address] Dr. Wilian Santos Sodium [Moles/Vol] 140 mmol/L Normal 137-145 [facility] Comment on above: Performed By: #### T ELOY CMP, T7 #### [facility] [address] [place] [address] Dr. Wilian Santos Urea nitrogen [Mass/Vol] 15.0 mg/dL Normal 7.0-18.0 [facility] Comment on above: Performed By: #### T ELOY CMP, T7 #### [facility] [address] [place] [address] Dr. Wilian Santos Urea nitrogen/Creatinine [Mass ratio] 25.9 mg/mg Normal [facility] Comment on above: Performed By: #### T ELOY CMP, T7 #### [facility] [address] [place] [address] Dr. Wilian Santos TSHon 09-22-2021 TSH 2.856 uIU/mL Normal 0.470-4.680 [facility] Comment on above: Performed By: #### T ELOY CMP, T7 #### [facility] [address] [place] [address] Dr. Wilian Santos TSH RANGE SEE BELOW Normal [facility] Comment on above: Result Comment: <0.3 4 UIU/ml HYPERTHYROID 0.34-5.60 UIU/ml EUTHYROID >5.60 UIU/ml HYPOTHYROID Performed By: #### T SH, CMP, T7 #### [facility] [address] [place], [place] [address] Dr. Wilian Santos Cult, Bloodon 08-31-2018 Cult, Blood Specimen Description .BLOOD 10ML RED 10ML PURP RIGHT AC Special Requests NOT REPORTED Culture NO GROWTH 6 DAYS Report Status FINAL 08/31/2018 [facility] Comment on above: Performed By: #### C DP, HCG, CMPX, LIP, PT, PTT #### [facility] [address] [id number] [employer] Manager: Viet Andrew MD Cult,Bloodon 08-31-2018 Cult,Blood Specimen Description .BLOOD 0ML RED 1ML PURP RIGHT UPPER SHOULDER Special Requests NOT REPORTED Culture NO GROWTH 6 DAYS Report Status FINAL 08/31/2018 [facility] Comment on above: Performed By: #### C DP, HCG, CMPX, LIP, PT, PTT #### [facility] [address] [facility] [place] [address] [employer] Manager: Viet Andrew MD Cult,Urineon 08-26-2018 Cult,Urine Specimen Description .CLEAN CATCH URINE Special Requests NOT REPORTED Culture ESCHERICHIA COLI 10 to 50,000 CFU/ML Report Status FINAL 08/26/2018 SUSCEPTIBILITY Organism ESCHERICHIA COLI Method YAAKOV Amikacin NOT REPORTED Ampicillin <=2 SUSCEPTIBLE Ampicillin/Sulbactam NOT REPORTED Aztreonam <=1 SUSCEPTIBLE Cefazolin <=4 SUSCEPTIBLE Cefazolin sensitivity results can be used to predict the effectiveness of oral cephalosporins (eg. Cephalexin) in uncomplicated Urinary Tract Infections due to E. coli, K. pneumoniae, and P. mirabilis Cefepime NOT REPORTED Ceftriaxone <=1 SUSCEPTIBLE Ciprofloxacin >=4 RESISTANT Ertapenem NOT REPORTED ESBL NEGATIVE Gentamicin <=1 SUSCEPTIBLE Meropenem NOT REPORTED Nitrofurantoin <=16 SUSCEPTIBLE Tigecycline NOT REPORTED Tobramycin <=1 SUSCEPTIBLE Trimethoprim/Sulfa >=320 RESISTANT Piperacillin/Tazobactam <=4 SUSCEPTIBLE [facility] Comment on above: Performed By: #### C DP, HCG, CMPX, LIP, PT, PTT #### [facility] [place] [address] [employer] Manager: Viet Andrew MD Urinalysis,Microon 9 ----- Normal [facility] Comment on above: Performed By: #### C DP, HCG, CMPX, LIP, PT, PTT #### [facility] [address] [place] [address]. [place] [address] [employer] Manager: Viet Andrew MD Bacteria LM.HPF #/area (Urine sed) FEW Abnormal NONE [facility] Comment on above: Performed By: #### C DP, HCG, CMPX, LIP, PT, PTT #### [facility] [address] [place] [address]. [place] [address] [employer] Manager: Viet Andrew MD Epithelial cells LM.HPF #/area (Urine sed) 5 TO 10 Normal [facility] Comment on above: Performed By: #### C DP, HCG, CMPX, LIP, PT, PTT #### [facility] [address] [place] [address]. [place] [address] [employer] Manager: iVet Andrew MD RBC #/vol (U) 50 TO 100 Normal [facility] Comment on above: Performed By: #### C DP, HCG, CMPX, LIP, PT, PTT #### [facility] [address] [place] [address]. [place] [address] [employer] Manager: iVet Andrew MD WBC #/vol (U) 5 TO 10 Normal [facility] Comment on above: Performed By: #### C DP, HCG, CMPX, LIP, PT, PTT #### [facility] [address] [place] [address]. [place] [address] [employer] Manager: Viet Andrew MD APTTon 08-24-2018 aPTT Coag time (Bld) 33.2 s Normal 24.0-36.0 [facility] Comment on above: Result Comment: IV Heparin Therapy Range: 62.0-94.0 Performed By: #### C DP, HCG, CMPX, LIP, PT, PTT #### [facility] [address] [place] [address] [employer] Manager: Viet Andrew MD CBC with Diffon 08-24-2018 Abs. Basophil 0.00 k/uL Normal 0.0-0.2 [facility] Comment on above: Performed By: #### C DP, HCG, CMPX, LIP, PT, PTT #### [facility] [address] [place] [address] [employer] Manager: Viet Andrew MD Abs.Neutrophil (Seg) 3.60 k/uL Normal 1.3-9.1 [facility] Comment on above: Performed By: #### C DP, HCG, CMPX, LIP, PT, PTT #### [facility] [address] [facility] [place] [address] [employer] Manager: Viet Andrew MD Basophils/100 WBC (Bld) 0 % Normal 0-2 [facility] Comment on above: Performed By: #### C DP, HCG, CMPX, LIP, PT, PTT #### [facility] [place] [address] [employer] Manager: Viet Andrew MD Eosinophils #/vol (Bld) 0.00 10*3/uL Normal 0.0-0.4 [facility] Comment on above: Performed By: #### C DP, HCG, CMPX, LIP, PT, PTT #### [facility] [address] [place] [address]. [place] [address] [employer] Manager: Viet Andrew MD Eosinophils/100 WBC (Bld) 1 % Normal 0-4 [facility] Comment on above: Performed By: #### C DP, HCG, CMPX, LIP, PT, PTT #### [facility] [address] [place] [address] [employer] Manager: Viet Andrew MD Erythrocyte distribution width Ratio (RBC) 13.1 % Normal 11.5-14.9 [facility] Comment on above: Performed By: #### C DP, HCG, CMPX, LIP, PT, PTT #### [facility] [address] [place] [address] [employer] Manager: Viet Andrew MD Hematocrit Volume Fraction (Bld) 46.4 % High 36-46 [facility] Comment on above: Performed By: #### C DP, HCG, CMPX, LIP, PT, PTT #### [facility] [address] [place] [address] [employer] Manager: Viet Andrew MD Hemoglobin mass conc (Bld) 15.7 g/dL Normal 12.0-16.0 [facility] Comment on above: Performed By: #### C DP, HCG, CMPX, LIP, PT, PTT #### [facility] [place] [address] [employer] Manager: Viet Andrew MD Lymphocytes #/vol (Bld) 1.20 10*3/uL Normal 1.0-4.8 [facility] Comment on above: Performed By: #### C DP, HCG, CMPX, LIP, PT, PTT #### [facility] [address] [place] [address] [employer] Manager: Viet Andrew MD Lymphocytes/100 WBC (Bld) 21 % Low 25-45 [facility] Comment on above: Performed By: #### C DP, HCG, CMPX, LIP, PT, PTT #### [facility] [address] [place] [address] [employer] Manager: Viet Andrew MD MCH Entitic mass (RBC) 30.0 pg Normal 26-34 [facility] Comment on above: Performed By: #### C DP, HCG, CMPX, LIP, PT, PTT #### [facility] [address] [place] [address] [employer] Manager: Viet Andrew MD MCHC mass conc (RBC) 33.8 g/dL Normal 31-37 [facility] Comment on above: Performed By: #### C DP, HCG, CMPX, LIP, PT, PTT #### [facility] [address] [place] [address] [employer] Manager: Viet Andrew MD MCV Entitic volume (RBC) 88.7 fL Normal 80-100 [facility] Comment on above: Performed By: #### C DP, HCG, CMPX, LIP, PT, PTT #### [facility] [address] [place] [address] [employer] Manager: Viet Andrew MD Monocytes #/vol (Bld) 0.70 10*3/uL Normal 0.1-1.3 [facility] Comment on above: Performed By: #### C DP, HCG, CMPX, LIP, PT, PTT #### [facility] [address] [place] [address] [employer] Manager: Viet Andrew MD Monocytes/100 WBC (Bld) 13 % High 2-8 [facility] Comment on above: Performed By: #### C DP, HCG, CMPX, LIP, PT, PTT #### [facility] [address] [place] [address] [employer] Manager: Viet Andrew MD Neutrophil (Seg) 65 % High 34-64 [facility] Comment on above: Performed By: #### C DP, HCG, CMPX, LIP, PT, PTT #### [facility] [address] [place] [address] [employer] Manager: Viet Andrew MD Platelet mean volume Entitic volume (Bld) 9.4 fL Normal 6.0-12.0 [facility] Comment on above: Performed By: #### C DP, HCG, CMPX, LIP, PT, PTT #### [facility] [address] [place] [address] [employer] Manager: Viet Andrew MD Platelets #/vol (Bld) 182 10*3/uL Normal 150-450 [facility] Comment on above: Performed By: #### C DP, HCG, CMPX, LIP, PT, PTT #### [facility] [address] [facility] [place] [address] [employer] Manager: Viet Andrew MD RBC #/vol (Bld) 5.23 10*6/uL High 4.0-5.2 [facility] Comment on above: Performed By: #### C DP, HCG, CMPX, LIP, PT, PTT #### [facility] [address] [facility] [place] [address] [employer] Manager: Viet Andrew MD WBC #/vol (Bld) 5.6 10*3/uL Normal 4.5-13.5 [facility] Comment on above: Performed By: #### C DP, HCG, CMPX, LIP, PT, PTT #### [facility] [address] [facility] [place] [address] [employer] Manager: Viet Andrew MD Abs.Imm.Granulocyte NOT REPORTED Normal 0.00-0.30 [facility] Comment on above: Performed By: #### C DP, HCG, CMPX, LIP, PT, PTT #### [facility] [address] [place] [address] [employer] Manager: Viet Andrew MD Auto Diff Performed NOT REPORTED Normal [facility] Comment on above: Performed By: #### C DP, HCG, CMPX, LIP, PT, PTT #### [facility] [address] [place] [address] [employer] Manager: Viet Andrew MD Immature granulocytes #/vol (Bld) NOT REPORTED Normal 0 [facility] Comment on above: Performed By: #### C DP, HCG, CMPX, LIP, PT, PTT #### [facility] [address] [facility] [place] [address] [employer] Manager: Viet Andrew MD NRBC Automated NOT REPORTED Normal [facility] Comment on above: Performed By: #### C DP, HCG, CMPX, LIP, PT, PTT #### [facility] [address] [facility] [place] [address] [employer] Manager: Viet Andrew MD Platelets #/vol (Bld) NOT REPORTED Normal [facility] Comment on above: Performed By: #### C DP, HCG, CMPX, LIP, PT, PTT #### [facility] [address] [facility] [place] [address] [employer] Manager: Viet Andrew MD RBC morphology finding Nom (Bld) NOT REPORTED Normal [facility] Comment on above: Performed By: #### C DP, HCG, CMPX, LIP, PT, PTT #### [facility] [place] [address] [employer] Manager: Viet Andrew MD WBC Morphology NOT REPORTED Normal [facility] Comment on above: Performed By: #### C DP, HCG, CMPX, LIP, PT, PTT #### [facility] [place] [address] [employer] Manager: Viet Andrew MD Comp Metabolic Pr/rfx MGon 0 08-24-2018 (cont.) Normal [facility] Comment on above: Result Comment: Aver age GFR for 20-29 years old: 116 mL/min/1.73sq m Chronic Kidney Disease: <60 mL/min/1.73sq m Kidney failure: <15 mL/min/1.73sq m eGFR calculated using average adult body mass. Additional eGFR calculator available at: http://[email or web address]/multiple_crcl_2012.htm Performed By: #### C DP, HCG, CMPX, LIP, PT, PTT #### [facility] [address] [facility] [place] [address] [employer] Specialist Manager: Viet Andrew MD Albumin mass conc 4.7 g/dL Normal 3.5-5.2 [facility] Comment on above: Performed By: #### C DP, HCG, CMPX, LIP, PT, PTT #### [facility] [address] [place] [address] [employer] Specialist Manager: Viet Andrew MD Alkaline Phos 84 U/L Normal 35-104 [facility] Comment on above: Performed By: #### C DP, HCG, CMPX, LIP, PT, PTT #### [facility] [address] [place] [address] [employer] Specialist Manager: Viet Andrew MD ALT enzyme act/vol 35 U/L High 5-33 [facility] Comment on above: Performed By: #### C DP, HCG, CMPX, LIP, PT, PTT #### [facility] [place] [address] [employer] Specialist Manager: Viet Andrew MD Anion gap molar conc 17 mmol/L Normal 9-17 [facility] Comment on above: Performed By: #### C DP, HCG, CMPX, LIP, PT, PTT #### [facility] [address] [place] [address] [employer]ist Manager: Viet Andrew MD AST enzyme act/vol 26 U/L Normal <32 [facility] Comment on above: Performed By: #### C DP, HCG, CMPX, LIP, PT, PTT #### [facility] [address] [place] [address] [employer]ist Manager: Viet Andrew MD Bilirubin Ql (U) 0.51 mg/dL Normal 0.3-1.2 [facility] Comment on above: Performed By: #### C DP, HCG, CMPX, LIP, PT, PTT #### [facility] [address] [place] [address] [employer] Specialist Manager: Viet Andrew MD Calcium mass conc 10.0 mg/dL Normal 8.6-10.4 [facility] Comment on above: Performed By: #### C DP, HCG, CMPX, LIP, PT, PTT #### [facility] [facility] [place] [address] [employer]ist Manager: Viet Andrew MD Chloride molar conc 99 mmol/L Normal 98-107 [facility] Comment on above: Performed By: #### C DP, HCG, CMPX, LIP, PT, PTT #### [facility] [facility] [place] [address] [employer] Specialist Manager: Viet Andrew MD CO2 molar conc 23 mmol/L Normal 20-31 [facility] Comment on above: Performed By: #### C DP, HCG, CMPX, LIP, PT, PTT #### [facility] [address] [facility] [place] [address] [employer]ist Manager: Viet Andrew MD Creatinine mass conc 0.72 mg/dL Normal 0.50-0.90 [facility] Comment on above: Performed By: #### C DP, HCG, CMPX, LIP, PT, PTT #### [facility] [place] [address] [employer] Specialist Manager: Viet Andrew MD GFR, Amer >60 Normal >60 [facility] Comment on above: Performed By: #### C DP, HCG, CMPX, LIP, PT, PTT #### [facility] [address] [place] [address] [employer] Specialist Manager: Viet Andrew MD GFR,non Amer >60 Normal >60 [facility] Comment on above: Performed By: #### C DP, HCG, CMPX, LIP, PT, PTT #### [facility] [address] [place] [address] [employer] Specialist Manager: Viet Andrew MD Glucose mass conc 83 mg/dL Normal 70-99 [facility] Comment on above: Performed By: #### C DP, HCG, CMPX, LIP, PT, PTT #### [facility] [address] [place] [address] [employer] Specialist Manager: Viet Andrew MD Potassium molar conc 3.6 mmol/L Low 3.7-5.3 [facility] Comment on above: Performed By: #### C DP, HCG, CMPX, LIP, PT, PTT #### [facility] [address] [facility] [place] [address] [employer] Specialist Manager: Viet Andrew MD Protein mass conc 8.8 g/dL High 6.4-8.3 [facility] Comment on above: Performed By: #### C DP, HCG, CMPX, LIP, PT, PTT #### [facility] [address] [facility] [place] [address] [employer] Specialist Manager: Viet Andrew MD Sodium molar conc 139 mmol/L Normal 135-144 [facility] Comment on above: Performed By: #### C DP, HCG, CMPX, LIP, PT, PTT #### [facility] [address] [place] [address] [employer] Specialist Manager: Viet Andrew MD Urea nitrogen mass conc 16 mg/dL Normal 6-20 [facility] Comment on above: Performed By: #### C DP, HCG, CMPX, LIP, PT, PTT #### [facility] [address] [place] [address] [employer] Specialist Manager: Viet Andrew MD Albumin/Globulin mass ratio NOT REPORTED Normal 1.0-2.5 [facility] Comment on above: Performed By: #### C DP, HCG, CMPX, LIP, PT, PTT #### [facility] [address] [place] [address] [employer] Specialist Manager: Viet Andrew MD BUN/CRE Ratio NOT REPORTED Normal 9-20 [facility] Comment on above: Performed By: #### C DP, HCG, CMPX, LIP, PT, PTT #### [facility] [address] [facility] [place] [address] [employer]ist Manager: Viet Andrew MD Staging: NOT REPORTED Normal [facility] Comment on above: Performed By: #### C DP, HCG, CMPX, LIP, PT, PTT #### [facility] [address] [facility] [place] [address] [employer] Manager: Viet Andrew MD Flu A/B Ag Detectionon 08-24 Flu A/B Ag Detection Specimen Description .NASOPHARYNGEAL SWAB Special Requests NOT REPORTED Direct Exam PRESUMPTIVE NEGATIVE for Influenza A + B antigens. PCR testing to confirm this result is available upon request. Specimen will be saved in the laboratory for 7 days. Please call [phone] if PCR testing is indicated. Report Status FINAL 08/24/2018 Normal [facility] Comment on above: Performed By: #### F LUAD #### [facility] [address] [facility] [place] [address] [employer]ist Manager: Viet Andrew MD HCG Screen, Bloodon 08-25-19 19 HCG Qn Negative Normal NEG [facility] Comment on above: Result Comment: Spec imens with hCG levels near the threshold of the test (25 mIU/mL) may give a negative or indeterminate result. In such cases, another test should be performed with a new specimen in 48-72 hours. If early is suspected clinically in this setting, correlation with quantitative serum b-hCG level is suggested. Performed By: #### C DP, HCG, CMPX, LIP, PT, PTT #### [facility] [address] [facility] [place] [address] [employer]ist Manager: Viet Andrew MD Lactate, Sepsison 08-24-2018 Lactic Acid, Sepsis 1.2 mmol/L Normal 0.5-1.9 [facility] Comment on above: Performed By: #### L ACDS #### [facility] [facility] [place] [address] [employer] Specialist Manager: Viet Andrew MD Lactic Acid,Sep Wbld NOT REPORTED Normal 0.5-1.9 [facility] Comment on above: Performed By: #### L ACDS #### [facility] [address] [facility] [place] [address] [employer]ist Manager: Viet Andrew MD Lipaseon 08-24-2018 Lipase enzyme act/vol 36 U/L Normal 13-60 [facility] Comment on above: Performed By: #### C DP, HCG, CMPX, LIP, PT, PTT #### [facility] [facility] [place] [address] [employer] Specialist Manager: Viet Andrew MD PTon 08-24-2018 INR Coag RelTime (PPP) 1.2 {INR} Normal [facility] Comment on above: Result Comment: Non-therapeutic Range: INR = 0.9-1.2 Therapeutic Range: Moderate Anticoagulant Intensity: INR = 2.0-3.0 High Anticoagulant Intensity: INR = 2.5-3.5 Performed By: #### C DP, HCG, CMPX, LIP, PT, PTT #### [facility] [facility] [place] [address] [employer]ist Manager: Viet Andrew MD Prothrombin time (PT) Coag time (PPP) 14.7 s High 11.8-14.6 [facility] Comment on above: Performed By: #### C DP, HCG, CMPX, LIP, PT, PTT #### [facility] [address] [facility] [place] [address] [employer]ist Manager: Viet Andrew MD Urinalysis, Routineon 2018 Acetoacetic Acid,Ur LARGE Abnormal NEG [facility] Comment on above: Performed By: #### U A, ROBERTOO #### [facility] [address] [facility] [place] [address] [employer]ist Manager: Viet Andrew MD Bilirubin, SemiQt,Ur LARGE AMOUNT Abnormal NEG [facility] Comment on above: Performed By: #### U A, ROBERTOO #### [facility] [address] [facility] [place] [address] [employer] Specialist Manager: Viet Andrew MD Color Nom (U) RED Abnormal YEL [facility] Comment on above: Performed By: #### U A, UMANGELICAO #### [facility] [address] [facility] [place] [address] [employer] Specialist Manager: Viet Andrew MD Glucose,Semi-qnt,Ur Negative Normal NEG [facility] Comment on above: Performed By: #### U A, UMICAO #### [facility] [address] [facility] [place] [address] [employer] Specialist Manager: Viet Andrew MD Hemoglobin, Ur LARGE Abnormal NEG [facility] Comment on above: Performed By: #### U A, UMICAO #### [facility] [address] [facility] [place] [address] [employer] Specialist Manager: Viet Andrew MD Leuckocyte Esterase MOD Abnormal NEG [facility] Comment on above: Performed By: #### U A, UMICAO #### [facility] [address] [facility] [place] [address] [employer] Specialist Manager: Viet Andrew MD Nitrite,Ur Negative Normal NEG [facility] Comment on above: Performed By: #### U A, UMICAO #### [facility] [address] [facility] [place] [address] [employer] Specialist Manager: Viet Andrew MD PH,Ur 5.5 Normal 5.0-8.0 [facility] Comment on above: Performed By: #### U A, UMICAO #### [facility] [address] [facility] [place] [address] [employer] Specialist Manager: Viet Andrew MD Protein mass conc (U) 2+ Abnormal NEG [facility] Comment on above: Performed By: #### U A, UMICAO #### [facility] [address] [facility] [place] [address] [employer] Specialist Manager: Viet Andrew MD Spec. [place],Ur 1.024 Normal 1.000-1.030 [facility] Comment on above: Performed By: #### U A, UMICAO #### [facility] [address] [facility] [place] [address] [employer] Specialist Manager: Viet Andrew MD Turbidity TURBID Abnormal CLEAR [facility] Comment on above: Performed By: #### U A, UMICAO #### [facility] [address] [facility] [place] [address] [employer] Specialist Manager: Viet Andrew MD Urobilinogen,Ur Normal Normal NORM [facility] Comment on above: Performed By: #### U A, UMICAO #### [facility] [address] [facility] [place] [address] [employer] Specialist Manager: Viet Andrew MD Comment NOT REPORTED Normal [facility] Comment on above: Performed By: #### U A, UMICAO #### [facility] [address] [place] [address]. [place] [address] [employer] Specialist Manager: Viet Andrew MD Urinalysis,Microon 9 Amorphous sediment LM Ql (Urine sed) NOT REPORTED Normal NONE [facility] Comment on above: Performed By: #### C DP, HCG, CMPX, LIP, PT, PTT #### [facility] [facility] [place] [address] [employer] Specialist Manager: Viet Andrew MD Casts LM.LPF #/area (Urine sed) NOT REPORTED Normal [facility] Comment on above: Performed By: #### C DP, HCG, CMPX, LIP, PT, PTT #### [facility] [address] [place] [address]. [place] [address] [employer] Specialist Manager: Viet Andrew MD Crystals LM Nom (Urine sed) NOT REPORTED Normal [facility] Comment on above: Performed By: #### C DP, HCG, CMPX, LIP, PT, PTT #### [facility] [address] [place] [address]. [place] [address] [employer] Specialist Manager: Viet Andrew MD Epithelial, Renal NOT REPORTED Normal 0 [facility] Comment on above: Performed By: #### C DP, HCG, CMPX, LIP, PT, PTT #### [facility] [address] [place] [address]. [place] [address] [employer] Specialist Manager: Viet Andrew MD Mucus Strands NOT REPORTED Normal [facility] Comment on above: Performed By: #### C DP, HCG, CMPX, LIP, PT, PTT #### [facility] [address] [place] [address] [employer] Specialist Manager: Viet Andrew MD Other Observations NOT REPORTED Normal NREQ [facility] Comment on above: Performed By: #### C DP, HCG, CMPX, LIP, PT, PTT #### [facility] [address] [facility] [place] [address] [employer] Specialist Manager: Viet Andrew MD Trichomonas NOT REPORTED Normal NONE [facility] Comment on above: Performed By: #### C DP, HCG, CMPX, LIP, PT, PTT #### [facility] [address] [facility] [place] [address] [employer] Specialist Manager: Viet Andrew MD Yeast LM Ql (Urine sed) NOT REPORTED Normal NONE [facility] Comment on above: Performed By: #### C DP, HCG, CMPX, LIP, PT, PTT #### [facility] [address] [facility] [place] [address] [employer] Specialist Manager: Viet Andrew MD XR CHEST PORTABLEon 08-25-19 19 XR CHEST PORTABLE EXAMINATION: SINGLE XRAY VIEW OF THE CHEST 08/24/2018 8:48 pm COMPARISON: None. HISTORY: ORDERING SYSTEM PROVIDED HISTORY: Sepsis TECHNOLOGIST PROVIDED HISTORY: Sepsis Ordering Physician Provided Reason for Exam: Fever, nausea for 2 days. Acuity: Acute Type of Exam: Initial Additional signs and symptoms: Fever, nausea for 2 days. FINDINGS: Heart size is normal. There is no lung consolidation. 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 Normal [facility] Urinalysis w/ Microon 2017 ----- Normal [facility] Comment on above: Performed By: #### U AMIC ####[address] [place] [address] Acetaminophen mass conc Negative Normal NEG [facility] Comment on above: Performed By: #### U AMIC ####[address] [place] [address] Bacteria 1+ Abnormal NONE [facility] Comment on above: Performed By: #### U AMIC ####[address] [place] [address] Bilirubin, SemiQt,Ur Negative Normal NEG [facility] Comment on above: Performed By: #### U AMIC ####[address] [place] [address] Color YELLOW Normal YEL [facility] Comment on above: Performed By: #### U AMIC ####[address] [place] [address] Epithelial cells 5 TO 10 Normal 0-25 [facility] Comment on above: Performed By: #### U AMIC ####[address] [place] [address] Glucose,Semi-qnt,Ur Negative Normal NEG [facility] Comment on above: Performed By: #### U AMIC ####[address] [place] [address] Hemoglobin, Ur 2+ Abnormal NEG [facility] Comment on above: Performed By: #### U AMIC ####[address] [place] [address] Leuckocyte Esterase MODERATE Abnormal NEG [facility] Comment on above: Performed By: #### U AMIC ####[address] [place] [address] Mucus Strands 1+ Abnormal NONE [facility] Comment on above: Performed By: #### U AMIC ####[address] [place] [address] Nitrite,Ur Negative Normal NEG [facility] Comment on above: Performed By: #### U AMIC ####[address] [place] [address] PH,Ur 6.0 Normal 5.0-9.0 [facility] Comment on above: Performed By: #### U AMIC ####[address] [place] [address] Protein mass conc TRACE Abnormal NEG [facility] Comment on above: Performed By: #### U AMIC ####[address] [place] [address] RBC Test strip #/vol (U) 5 TO 10 Normal 0-2 [facility] Comment on above: Performed By: #### U AMIC ####[address] [place] [address] Spec. [place],Ur >1.030 High 1.010-1.020 [facility] Comment on above: Performed By: #### U AMIC ####[address] [place] [address] Turbidity CLEAR Normal CLEAR [facility] Comment on above: Performed By: #### U AMIC ####[address] [place] [address] Urine WBC's 50 TO 100 Normal 0-5 [facility] Comment on above: Performed By: #### U AMIC ####[address] [place] [address] Urobilinogen,Ur Normal Normal NORM [facility] Comment on above: Performed By: #### U AMIC ####[address] [place] [address] Amorphous Sediment NOT REPORTED Normal NONE [facility] Comment on above: Performed By: #### U AMIC ####[address] [place] [address] Casts NOT REPORTED Normal [facility] Comment on above: Performed By: #### U AMIC ####[address] [place] [address] Comment NOT REPORTED Normal [facility] Comment on above: Performed By: #### U AMIC ####[facility] [place] [address] Crystals NOT REPORTED Normal NONE [facility] Comment on above: Performed By: #### U AMIC ####[facility] [place] [address] Epithelial, Renal NOT REPORTED Normal 0 [facility] Comment on above: Performed By: #### U AMIC ####[facility] [place] [address] Other Observations NOT REPORTED Normal NREQ [facility] Comment on above: Performed By: #### U AMIC ####[address] [place] [address] Trichomonas NOT REPORTED Normal NONE [facility] Comment on above: Performed By: #### U AMIC ####[address] [place] [address] Yeast NOT REPORTED Normal NONE [facility] Comment on above: Performed By: #### U AMIC ####[address] [place] [address] Clinic Note - [facility] - Follow Upon 09-05-2017 Clinic Note - [facility] - Follow Up Patient Visit Information:Onco-Fertility :? Visit Type Hematology - Follow UpHistory of Present Illness:Chief Complaint: PMH of platelet storage pool disorder for follow upInterval History:22 yo with PMH of platelet storage pool disorder is here with mom for followup.Current complaints include easy bruising and prolonged bleeding tendency- Reports easy bruisability both spontaneous and following minor trauma, mostlypresent on her arms and thighs.- Gum bleeds almost daily while brushing despite using sensitive toothpaste andsoft bristled tooth brush.- Easy and prolonged bleeding for example, after shaving her legs using a razor- Has multiple tattoos and piercing and complaints of poor tattoo healing andbleeding from sites of piercingHistory of prolonged bleeding following tosillectomy requiring cauterisationHistory of platelet transfusion in 2016 for bleeding from wisdom toothextraction.Had excessive menstrual bleeding not controlled with OCP's. Underwent Nexplanoninsertion and since then has not had any menstrual bleedingFamily history: Mom also reports multiple, frequent spontaneous bruising, notdiagnosedMedication use: was on Paxil previously for depression, denies any symptoms ormedication use at presentProblem List: Additional Dx: Platelet function defect: S/P tooth extraction: Storage pool disease of platelets: Abnormal blood coagulation profile: Medical History: Recurrent epistaxis:Family History: No Family History items are recorded in the problem list.Allergies and Intolerances: Allergies: No Known Allergies: ActiveOutpatient Medication Profile:* Incomplete Medication History as of 06-Nov-2015 11:56 documented inStructured Notes chlorhexidine 0.12% mucous membrane liquid: 15 milliliter(s) mucous membrane 2times a day x 7 days, Start Date: 06-Nov-2015 oxyCODONE 5 mg oral tablet: 1 tab(s) orally , As Needed for breakthrough pain,Start Date: 06-Nov-2015 Amicar 1.25 g/5 mL oral syrup: 8 milliliter(s) orally 4 times a day [facility] [phone], Start Date: 02-Nov-2015 Sprintec 0.25 mg-35 mcg oral tablet: 1 tab(s) orally once a day Paxil 20 mg oral tablet: 1 tab(s) orally once a dayReview of Systems:? Constitutional NEGATIVE: Fever, Chills, Anorexia, Weight Loss, Malaise? Eyes NEGATIVE: Blurry Vision, Drainage, Diploplia, Redness, Vision Loss/Change? ENMT NEGATIVE: Nasal Discharge, Nasal Congestion, Ear Pain, Mouth Pain,Throat Pain? Respiratory NEGATIVE: Dry Cough, Productive Cough, Wheezing, Shortness ofBreath? Cardiology NEGATIVE: Chest Pain, Palpitations? Gastrointestinal NEGATIVE: Abdominal Pain, Constipation, Diarrhea, Nausea,Vomiting? Genitourinary NEGATIVE: Discharge, Dysuria, Flank Pain, Frequency,Hematuria? Musculoskeletal NEGATIVE: Pain, Swelling? Neurological NEGATIVE: Headache, Seizures, Syncope? Skin NEGATIVE: Rash, Ulcer? Hematologic/Lymph POSITIVE: Bruising, Easy Bleeding NEGATIVE: Anemia, Petechiae? Allergic/Immunologic NEGATIVE: Anaphylaxis, Itching, Sneezing, SwellingPerformance Status:Vitals and Measurements:Vitals: Temp: 36.8 HR: 90 RR: 18 BP: 123/82 SPO2%: NAMeasurements: HT(cm): 167.1 WT(kg): 82.1 BSA: 1.95 BMI: 29.4Physical Exam:Constitutional: Well developed, awake/alert/oriented x3, no distress, alert andcooperativeEyes: PERRL, EOMI, clear scleraENMT: mucous membranes moist, no apparent injury, no lesions seenHead/Neck: Neck supple, no apparent injury, thyroid without mass or tenderness,No JVD, trachea midline, no bruitsRespiratory/Thorax: Patent airways, CTAB, normal breath sounds with good chestexpansion, thorax symmetricCardiovascular: Regular, rate and rhythm, no murmurs, 2+ equal pulses of theextremities, normal S 1and S 2Gastrointestinal: Nondistended, soft, non-tender, no rebound tenderness orguarding, no masses palpable, no organomegaly, +BS, no bruitsMusculoskeletal: ROM intact, no joint swelling, normal strengthExtremities: normal extremities, no cyanosis edema, contusions or wounds, noclubbingNeurological: alert and oriented x3, intact senses, motor, response andreflexes, normal strengthLymphatic: No significant lymphadenopathySkin: Small, fading bruises over the thighs and arms notedLab Results:Results:CBC date/time WBC HGB HCT PLT [id number] 15:21 8.1 12.9 37.9 242 5.04Assessment, Plan, and Orders:Assessment:22yo with platelet storage pool disorder here today for follow up and concernfor ongoing skin and mucosal bleeds and bruisingPlan:- Amicar swish and spit- Dental consult to rule out gingivitis- Avoid trauma, contact sports and sharps- Bracelet identifying platelet storage pool disorder - Emergency contact details- Regular and periodic (at least 6monthly) follow up with [employer] Recipients: Angie Nelson MD - [id number] Yes when ready to send to Provider(s) Listed Above: Note sent toproviders named aboveAttestation:Cosign/At testation:Attestation: I saw and evaluated the patient. I personally obtained the keyand critical portions of the history and physical exam or was physicallypresent for witt and critical portions performed by the resident/fellow. Ireviewed the resident/fellow?s documentation and discussed the patient with theresident/fellow. I agree with the resident/fellow?s medical decision making asdocumented in the resident?s noteElectronic Signatures:Bg Puentes) (Signed 05-Sep-2017 16:39) Authored: Problem List and Immunizations, To Send Document via Auto Fax,Attestation Co-Signer: Patient Visit Information, History of Present Illness, Problem Listand Immunizations, Allergies and Outpatient Medication Profile, Review ofSystems, Performance Status, Physical Exam, Results, Assessment, Plan, andOrders, To Send Document via Auto FaxSAlexander soto (Resident)) (Signed 05-Sep-2017 15:30) Authored: Patient Visit Information, History of Present Illness, Problem Listand Immunizations, Allergies and Outpatient Medication Profile, Review ofSystems, Performance Status, Physical Exam, Results, Assessment, Plan, andOrders, To Send Document via Auto FaxLast Updated: 05-Sep-2017 16:39 by Bg Puentes) Normal [facility] Measurementson 09-05-2017 BMI (Body Mass Index) Growth Chart:Growth Chart Measurements:? Growth Chart Length/Height (cm) 167.1? Growth Chart Weight (kg) 82.1? Growth Chart BMI (kg/m2) 29.402Electronic Signatures:Tiago Flores) (Signed 05-Sep-2017 14:31) Authored: Growth ChartLast Updated: 05-Sep-2017 14:31 by Tiago Flores) Normal [facility] Vital Signs Date Time Vital Sign Value Performing Clinician Marshal morrissey 06-24-2024 15:53-0500 Body height 165.1 cm Kathleen Eisenberg MD [facility] 06-24-2024 15:53-0500 Body mass index (BMI) [Ratio] 39.07 kg/m2 Kathleen Eisenberg MD Work Phone: [facility] 06-24-2024 15:53-0500 Body weight 106.5 kg Kathleen Eisenberg MD Work Phone: [facility] 06-24-2024 15:53-0500 Diastolic blood pressure 76 mm[Hg] Kathleen Eisenberg MD Work Phone: [facility] 06-24-2024 15:53-0500 Systolic blood pressure 118 mm[Hg] Kathleen Eisenberg MD Work Phone: [facility] 05-28-2024 15:26-0500 Body height 165.1 cm [facility] Wa[employer] Polishing Lead Worker [facility] 05-28-2024 15:26-0500 Body mass index (BMI) [Ratio] 38.77 kg/m2 [facility] 05-28-2024 15:26-0500 Body weight 105.69 kg [facility] Wa[employer] Polishing Lead Worker [facility] 05-28-2024 15:26-0500 Diastolic blood pressure 84 mm[Hg] [facility] Wa[employer]ishing Lead Worker [facility] 05-28-2024 15:26-0500 Systolic blood pressure 118 mm[Hg] [facility] 05-14-2024 13:30-0500 Body height 165.1 cm Kathleen Eisenberg MD Work Phone: [facility] 05-14-2024 13:30-0500 Body mass index (BMI) [Ratio] 38.84 kg/m2 Kathleen Eisenberg MD Work Phone: [facility] 05-14-2024 13:30-0500 Body weight 105.87 kg Kathleen Eisenberg MD Work Phone: [facility] 05-14-2024 13:30-0500 Diastolic blood pressure 88 mm[Hg] Kathleen Eisenberg MD Work Phone: [facility] 05-14-2024 13:30-0500 Systolic blood pressure 136 mm[Hg] Kathleen Eisenberg MD Work Phone: [facility] 09-07-2023 15:30-0400 Body height 165.1 cm [facility] 09-07-2023 15:30-0400 Body mass index (BMI) [Ratio] 38.27 kg/m2 [facility] 09-07-2023 15:30-0400 Body weight 104.33 kg [facility] 09-07-2023 15:30-0400 Diastolic blood pressure 82 mm[Hg] [facility] 09-07-2023 15:30-0400 Systolic blood pressure 142 mm[Hg] [facility] Encounter Date Encounter Type Care Provider Facility Start: 07-28-2024 End: 07-28-2024 Telephone encounter Rosa Ulrich [facility] Call Center Comment on above: having severe pain f rom a cyst Start: 07-26-2024 End: 07-26-2024 Documentation procedure Mar Pugh APRN-CNM Work Phone: [facility] Start: 07-26-2024 End: 07-26-2024 Telephone encounter Stephanie Valentino RN [facility] Call Center Comment on above: Abdominal Pain Start: 07-26-2024 End: 07-26-2024 Emergency department patient visit [facility] Start: 07-26-2024 End: 07-26-2024 Emergency department patient visit [facility] Start: 07-23-2024 ambulatory [facility] Start: 07-23-2024 Encounter for gynecological examination (general) (routine) without abnormal findings [facility] Start: 06-24-2024 End: 06-24-2024 ambulatory [facility] Start: 06-24-2024 End: 06-24-2024 Office outpatient visit 25 minutes Kathleen Eisenberg MD Work Phone: [facility] Physicians Obstetrics/Gynecolog y Comment on above: Pelvic pain (Primary Dx); Dysmenorrhea Start: 06-24-2024 End: 06-24-2024 ambulatory [facility] Start: 06-12-2024 End: 06-12-2024 Emergency department patient visit ALYCIA S [facility] Start: 05-31-2024 End: 05-31-2024 ambulatory LEAH GUEVARA [facility] Start: 05-28-2024 End: 05-28-2024 Office outpatient visit 15 minutes [facility] Ob Wa[employer]ishing Lead Worker [facility] [place] Comment on above: Dysmenorrhea (Primar y Dx); Menorrhagia with irregular cycle Start: 05-28-2024 End: 05-28-2024 ambulatory [facility] Start: 05-16-2024 ambulatory Isma Roberson acility:[facility] Start: 05-14-2024 End: 05-14-2024 Office outpatient visit 15 minutes Kathleen Eisenberg MD Work Phone: [facility] Phys[facility] Obstetrics/Gynecolog y Comment on above: Bilateral mastodynia (Primary Dx); Acute midline thoracic back pain Start: 05-14-2024 End: 05-14-2024 ambulatory [facility] Start: 05-12-2024 End: 05-12-2024 Emergency department patient visit [facility] Rubens [facility] Start: 01-07-2024 End: 01-08-2024 Emergency department patient visit [facility] Start: 01-07-2024 End: 01-08-2024 Emergency department patient visit BELLA [facility] Start: 12-05-2023 End: 12-05-2023 Emergency department patient visit [facility] Rubens [facility] Start: 10-30-2023 End: 10-31-2023 Emergency department patient visit CHRISTOPHER Monica CHANDRA [facility] Start: 10-16-2023 End: 10-16-2023 ambulatory [facility] Start: 10-16-2023 End: 10-16-2023 ambulatory [facility] Start: 09-17-2023 End: 09-17-2023 Emergency department patient visit [facility] Rubens [facility] Start: 09-07-2023 End: 09-07-2023 Office outpatient visit 15 minutes [facility] Wa[employer] Lead Worker [facility] Obstetrics/Gynecolog y Comment on above: Surveillance of cont raceptive implant (Primary Dx) Start: 09-07-2023 End: 09-07-2023 ambulatory [facility] Start: 08-10-2023 End: 08-11-2023 Emergency department patient visit SEGUNDO FUNES [facility] Start: 05-04-2022 End: 05-05-2022 ambulatory [facility] Facility:[facility]1 Start: 09-22-2021 End: 09-23-2021 ambulatory [facility] Facility:[facility] Start: 08-16-2021 End: 08-17-2021 ambulatory [facility] Facility:[facility] Start: 08-24-2018 End: 08-25-2018 Emergency department patient visit ANGIE Salinas [facility] Start: 03-24-2018 End: 03-24-2018 Emergency department patient visit ANGIE Salinas [facility] Start: 09-05-2017 Ambulatory Bg Roberson acility:[facility] Procedures Date Procedure Procedure Detail Performing Clinician Start: 06-24-2024 Adult depression screening assessment Kathleen Eisenberg MD Work Phone: Start: 01-24-2023 Adult depression screening assessment [facility] Wa[employer] Lead Worker Start: 12-23-2022 H/O: section S/P repeat low transverse Pf [employer] Lead Worker Start: 01-09-2020 Microscopic observation [Identifier] in Cervix by Cyto stain [facility] Wa[employer]ishing Lead Worker Start: 08-24-2018 Culture bacterial quanttative colony count urine ANGIE NELSON Start: 08-24-2018 Urinalysis microscopic only ANGIE NELSON Start: 08-24-2018 Urnls dip stick/tablet rgnt auto w/o microscopy ANGIE NELSON Start: 08-24-2018 Iaadiadoo influenza ANGIE NELSON Start: 08-24-2018 Assay of lipase ANGIE NELSON Start: 08-24-2018 Blood count complete auto&auto difrntl wbc ANGIE LESLIE Start: 08-24-2018 Culture bacterial blood aerobic w/id isolates ANGIE NELSON Start: 08-24-2018 Gonadotropin chorionic qualitative ANGIE NELSON Start: 08-24-2018 Prothrombin time ANGIE NELSON Start: 08-24-2018 Thromboplastin time partial plasma/whole blood ANGIE NELSON Start: 08-24-2018 Radiologic exam chest single view ANGIE NELSON Start: 08-24-2018 Assay of lactate ANGIE NELSON Start: 08-24-2018 INITIATE OXYGEN THERAPY PROTOCOL ANGIE NELSON Start: 03-24-2018 Urnls dip stick/tablet reagent auto microscopy ANGIE NELSON Plan of Treatment Date Care Activity Detail Author Start: 11-15-2032 DTaP,Tdap and Td Vac cines (9 - Td or Tdap) DTaP,Tdap and Td Vaccines (9 - Td or Tdap) [facility] Start: 07-26-2025 Adult BMI Screening Adult BMI Screen ing [facility] Start: 07-26-2025 Tobacco Screening Tobacco Screening [facility] Start: 06-24-2025 Adult BMI Screening Adult BMI Screen ing [facility] Start: 06-24-2025 Depression Screening Depression Scre ening [facility] Start: 06-24-2025 Tobacco Screening Tobacco Screening [facility] Start: 05-28-2025 Adult BMI Screening Adult BMI Screen ing [facility] Start: 05-28-2025 Tobacco Screening Tobacco Screening [facility] Start: 05-14-2025 Adult BMI Screening Adult BMI Screen ing [facility] Start: 05-14-2025 Tobacco Screening Tobacco Screening [facility] Start: 09-22-2024 End: 06-24-2025 US Pelvis transabdominal and transvaginal Ultrasound pelvic with transvaginal Imaging Routine Pelvic pain Expected: 09/22/2024 (Approximate), Expires: 06/24/2025 MUJIN Work Phone: Comment on above: Expected: 09/22/2024 (Approximate), Expires: 06/24/2025 Start: 09-06-2024 Adult BMI Screening Adult BMI Screen ing [facility] Start: 09-06-2024 Tobacco Screening Tobacco Screening [facility] Start: 08-19-2024 End: 08-19-2024 Patient encounter procedure 08/19/2024 3:30 PM EST Office Visit [facility] [address] [place] [phone] Kathleen Eisenberg MD [address] [place] [address] [facility] Start: 08-05-2024 End: 08-05-2024 Patient encounter procedure 08/05/2024 11:30 AM EST Office Visit [facility] [place] [phone] Kathleen Eisenberg MD [address] [place] [address] [facility] Start: 07-23-2024 End: 07-23-2024 Patient encounter procedure 07/23/2024 3:30 PM EST Office Visit [facility] [address] [place] [phone] Kathleen Eisenberg MD [address] [place] [address] [facility] Start: 06-24-2024 End: 06-24-2024 Patient encounter procedure 06/24/2024 3:30 PM EST Office Visit [facility] [place] [phone] Kathleen Eisenberg MD [address] [place] [address] [facility] Start: 06-11-2024 End: 06-11-2024 Patient encounter procedure 06/11/2024 3:15 PM EST Office Visit [facility] [address] [place] [phone] Kathleen Eisenberg MD [address] [place] [address] [facility] Start: 05-31-2024 End: 05-31-2024 Patient encounter procedure 05/31/2024 8:30 AM EST Appointment [facility] - Ultrasound [address] [place] [phone] Leah Higuera, PUTTY WORKER-BELL TIER [address] [place] [address] [facility] - [facility]tras[facility] Start: 05-28-2024 End: 05-28-2025 US Pelvis transabdominal and transvaginal Ultrasound pelvic with transvaginal Imaging Routine Dysmenorrhea Menorrhagia with irregular cycle Expected: 05/28/2024, Expires: 05/28/2025 [facility] Work Phone: Comment on above: Expected: 05/28/2024 , Expires: 05/28/2025 Start: 02-25-2024 COVID-19 Vaccine () COVID-19 Vaccine () [facility] Start: 01-25-2024 Depression Screening Depression Scre ening [facility] Start: 02-24-2023 COVID-19 Vaccine ( season) COVID-19 Vaccine () [facility] Start: 01-08-2023 Screening for malign ant neoplasm of cervix Pap Smear [facility] Start: 2015 Adult BMI Follow Up Plan Adult BMI Follow Up Plan [facility] End: 06-24-2025 Bacteria identified in Urine by Culture Urine culture Microbiology Routine Pelvic pain 1 Occurrences starting 06/24/2024 until 06/24/2025 [facility] Comment on above: 1 Occurrences starti ng 06/24/2024 until 06/24/2025 Bacteria identified in Urine by Culture Urine culture Microbiology Routine Pelvic pain 06/24/2024 7:39 PM [facility] End: 05-29-2025 CBC panel - Blood by Automated count CBC without diff Lab Routine Dysmenorrhea Menorrhagia with irregular cycle 1 Occurrences starting 05/28/2024 until 05/29/2025 [facility] Comment on above: 1 Occurrences starti ng 05/28/2024 until 05/29/2025 End: 06-24-2025 Chlamydia/GC by PCR Evelin Swab Chlamydia/GC by PCR Evelin Swab Microbiology Routine Pelvic pain 1 Occurrences starting 06/24/2024 until 06/24/2025 [facility] Comment on above: 1 Occurrences starti ng 06/24/2024 until 06/24/2025 Chlamydia/GC by PCR Evelin Swab Chlamydia/GC by PCR Evelin Swab Microbiology Routine Pelvic pain 06/24/2024 6:06 PM EST [facility] End: 05-28-2025 Thyroid profile includes TSH FT4 Thyroid profile includes TSH FT4 Lab Routine Dysmenorrhea Menorrhagia with irregular cycle 1 Occurrences starting 05/28/2024 until 05/28/2025 [facility] Comment on above: 1 Occurrences starti ng 05/28/2024 until 05/28/2025 End: 06-24-2025 Vaginitis Panel PCR Vaginitis Panel PCR Microbiology Routine Pelvic pain 1 Occurrences starting 06/24/2024 until 06/24/2025 [facility] Comment on above: 1 Occurrences starti ng 06/24/2024 until 06/24/2025 Vaginitis Panel PCR Vaginitis Pa randy PCR Microbiology Routine Pelvic pain 06/24/2024 6:06 PM [facility] Immunizations Immunization Date Immunization Notes Care Provider Fa cristy 11-15-2022 tetanus toxoid, redu bruce diphtheria toxoid, and acellular pertussis vaccine, adsorbed Pfws [employer]ishing Lead Worker [facility] 03-03-2021 COVID-19, mRNA, LNP- S, PF, 100mcg/0.5mL Dose Pfws [employer] Lead Worker [facility] 02-03-2021 COVID-19, mRNA, LNP- S, PF, 100mcg/0.5mL Dose Pfws Wafer [employer]ishing Lead Worker [facility] 11-06-2020 tetanus toxoid, redu bruce diphtheria toxoid, and acellular pertussis vaccine, adsorbed Pfws Wafer Polishing Lead Worker [facility] Payers Date Payer Category Payer Self-pay 2022 Medicaid HMO [facility] MEDICAID Member Subscriber Plan / Payer (Effective 2022-Present) Name: LimLia Relation to Subscriber: Self Name: Lia Lim Payer ID: [id number] (NAIC) Group ID: [id number] Type: Not on file Address: [address] [id number] 2022 Private Health Insurance [facility] [id number] 2022-Present [phone] [place], [place] [address] [id number] 2022 Private Health Insurance [id number] 2018 Unknown [id number] 1997 Unknown [id number] 2.16.840.1.912084.3.579. 2.173 1997 Unknown [id number] 2.16.840.1.774809.3.579. 2.176 1997 Unknown [id number] 2.16.840.1.845834.3.579. 2.593 1997 Unknown [id number] 2.16.840.1.542988.3.579. 2.593 1997 Unknown [id number] 2.16.840.1.983790.3.579. 2.593 1997 Unknown [id number] 2.16.840.1.454063.3.579. 2.1285 1997 Unknown [id number] 2.16.840.1.020839.3.579. 2.1285 1997 Unknown [id number] 2.16.840.1.854482.3.579. 2.1285 1997 Unknown [id number] 2.16.840.1.128654.3.579. 2.1285 1997 Unknown [id number] 2.16.840.1.444803.3.579. 2.1285 1997 Unknown [id number] 2.16.840.1.056208.3.579. 2.1285 1997 Unknown [id number] 2.840.1.358371.3.579. 2.1285 1997 Unknown [id number] 2.16840.1.725547.3.579. 2.1285 1997 Unknown [id number] 2.16.840.1.858621.3.579. 2.1285 1997 Unknown [id number] 2.840.1.505990.3.579. 2.1285 1997 Unknown [id number] 2.840.1.184067.3.579. 2.1285 1997 Unknown [id number] 2.16.840.1.197655.3.579. 2.1285 1997 Unknown [id number] 2.16.840.1.024266.3.579. 2.1285 1997 Unknown [id number] 2.16.840.1.182242.3.579. 2.1285 1997 Unknown [id number] 2.16.840.1.149766.3.579. 2.1285 1997 Unknown [id number] 2.16.840.1.566415.3.579. 2.1286 1997 Unknown [id number] 2.16.840.1.371856.3.579. 2.6 1997 Unknown [id number] 2.16.840.1.118302.3.579. 2.1286 1997 Unknown [id number] 2.16.840.1.907004.3.579. 2.1285 1997 Unknown [id number] 2.16.840.1.013732.3.579. 2.6 1997 Unknown [id number] 2.16.840.1.747769.3.579. 2.6 1997 Unknown [id number] 2.16.840.1.239851.3.579. 2.6 1997 Unknown [id number] 2.16.840.1.287342.3.579. 2.1286 1959 Unknown [id number] Social History Date Type Detail Facility Start: 05-05-2022 Tobacco smoking stat [facility] Never smoked tobacco [facility] Start: 05-05-2022 Tobacco use and exposure Smokeless tobacco non-user [facility] Start: 09-07-2023 End: 07-26-2024 Alcohol intake Ex-drinker (finding) [facility] Start: 07-17-2020 End: 09-07-2023 History of Social function [facility] Start: 07-17-2020 End: 09-07-2023 Tobacco use panel [facility] How hard is it for y ou to pay for the very basics like food, housing, medical care, and heating Not hard at all [facility] The thought of harmi ng myself has occurred to me Never [facility] Start: 06-28-2019 Alcohol Comment socially [facility] Start: 1997 Sex Assigned At Not on file [facility] Start: 01-27-2015 Sex Female (finding) [facility] Clinical Notes 09-07-2023 to 02-02-2025 Telephone Encounter - THANG Sy - 07/28/2024 9:22 AM ESTTelephone Encounter - THANG Sy - 07/28/2024 9:22 AM THANG Price - 07/26/2024 7:28 AM EST Note Date & Type Note Facility 07-28-2024 Miscellaneous Notes Patient called thru call center. She reports increasing abdominal pain since Monday. She was in the ER on Monday and ultrasound showed a ovarian cyst. Patient is tearful and reports being so painful that she can not move and if she does she vomits. Instructed patient to return now to the ER for evaluation. Discussed risk of torsion. Patient agrees and will go to the ER documented in this encounter [facility] 07-28-2024 Telephone encounter Note Patient called thru call center. She reports increasing abdominal pain since Monday. She was in the ER on Monday and ultrasound showed a ovarian cyst. Patient is tearful and reports being so painful that she can not move and if she does she vomits. Instructed patient to return now to the ER for evaluation. Discussed risk of torsion. [facility] agrees and [facility] 07-28-2024 Miscellaneous Notes Contract: Emi Fitzgerald is having severe pain from a cyst. she has been to [facility] 2x over this weekend and they just give her pain medication and send her home Kasia tiera documented in this encounter [facility] 07-28-2024 Telephone encounter Note Contract: Emi Fitzgerald is having severe pain from a cyst. she has been to [facility] 2x over this weekend and they just give her pain medication and send her home [facility] 07-28-2024 Telephone encounter Note Kasia mott [facility] 07-26-2024 History of Presen t illness Narrative Pt calls answering service with 10/10 pain. She was recently seen in ER and was found to have a 5.3cm right ovarian cyst. She was given pain and nausea meds and went home to care for her small children. She says since she has been home the pain is significantly worse than when she left the ER. It is causing severe nausea and she is unable to stand or care for herself or her kids. She reports trying a heating pack and a cold pack and using pressure without any relief. She sounds distraught and in significant pain over the phone. Discussed possibility of ovarian torsion with a cyst over 5cm and concern for surgical emergency due to sudden onset of significant pain. Patient states that she does want to return to the ER for evaluation however she is unsure what to do with her children as her stated he will not watch them and he does not want her to take them to someone else. Discussed that if her pain does not subside she should be re-evaluated and pt agrees. - THANG Leslie 07/26/24 7:37 AM THANG Leslie 07/26/24 [id number] documented in this encounter [facility] 07-26-2024 Miscellaneous Notes Contract: Emi Was seen in ER this morning (cyst on right ovary) Was discharged home- Patient is not currently Patient having severe pain 10/10 Is requesting to speak to provider integration consultant States she cannot wait to call office at 8am Called Mirela Camara CNM on her cell phone- no answer and unable to leave message Called Mar Pugh CNM on her cell phone- LM to call [facility] Mar [facility]- Warm transferred Cheslea to Lia documented in this encounter [facility] 07-26-2024 Telephone encounter Note Contract: 129 Was seen in ER this morning (cyst on right ovary) Was discharged home- Patient is not currently Patient having severe pain 04/04 Is requesting to speak to provider integration consultant States she cannot wait to call office at 8am [facility] 07-26-2024 Telephone encounter Note Called Mirela Camara CNM on her cell phone- no answer and unable to leave message [facility] 07-26-2024 Telephone encounter Note Called Mar Pugh CNM on her cell phone- LM to call [facility] 07-26-2024 Telephone encounter Note Mar called [facility]- Warm transferred Anjana to [facility] 06-24-2024 History of Presen t illness Narrative Lia Lim is a 29 y.o.female. No LMP recorded. Patient has had an implant.. She presents today for pelvic discomfort. Pt reports this has been ongoing for awhile. She states the pain radiates to her back. Periods are irregular. Pt states she received an ultrasound but never heard back after her imaging. Pt states she does not have a regular period and mostly just has spotting. She reports the blood is brown. Pt mentions she would like to discuss other birthcontrol options. Pt mentions a history of a platelet storage disorder. This is the pt's 2nd time wearing a nexplanon. Pt states she had 2 doses of Depo and did not like the contraception stating it made her feel crazy'. 05/31/24 Ultrasound: TECHNIQUE: Transabdominal and transvaginal sonographic evaluation of the pelvis. Transabdominal imaging performed to evaluate for extra adnexal pelvic pathology. Transvaginal imaging performed for better delineation of the adnexal and endometrial contents. Color Doppler used. FINDINGS: Uterus: 9.8 x 6.4 x 5.3 centimeters Endometrial Thickness: 0.6 cm Right Ovary: 4.9 x 4.3 x 3.6 cm Left Ovary: 3.6 x 2.9 x 2.1 cm The uterus demonstrates appropriate size and echo pattern. The endometrium is unremarkable. Trace fluid within the endocervical canal There is a homogeneously hypoechoic structure in the right ovary, measures 4.2 x 3.1 x 2.9 cm . There is no internal associated Doppler flow. Physiologic peripheral follicles within the otherwise unremarkable left ovary. Normal color ovarian flow bilaterally No pathologic free fluid. IMPRESSION: A hypoechoic lesion in the right ovary measuring 4.2 cm, potentially hemorrhagic cyst or endometrioma. Depending on context/suspicion, follow-up ultrasound after 2-3 cycles versus MRI correlation could be pursued.. Current contraception:Nexplanon OB History 2 Para 2 Term 2 0 AB 0 Living 2 SAB 0 IAB 0 Ectopic 0 Multiple 0 Live Births 2 MEDICAL HX Past Medical History: Diagnosis Date Anxiety Used Paxil for a time Depression Platelet storage pool disease (CMS-HCC) S/P T&A (status post tonsillectomy and adenoidectomy) 04/03/2013 SURGICAL HX Past Surgical History: Procedure Laterality Date ADENOIDECTOMY N/A 01/13/2021 Performed by Bassem Hartmann MD at [facility] OR REPEAT N/A 12/23/2022 Performed by Leana Patel MD at [facility] OR FINGER SURGERY 2002 bone spur TONSILLECTOMY WISDOM TOOTH EXTRACTION FAMILY HX Family History Problem Relation Age of Onset Thyroid disease Mother Depression Mother Cervical cancer Mother Bipolar disorder Father Schizophrenia Father Depression Father Thyroid disease Maternal Grandmother Diabetes Maternal Grandfather Hypertension Paternal Grandfather Diabetes Paternal Grandfather Bleeding Disorder Neg Hx Uterine cancer Neg Hx Ovarian cancer Neg Hx Colon cancer Neg Hx MEDS Current Outpatient Medications Medication Sig Dispense Refill acetaminophen (TYLENOL EXTRA STRENGTH) 500 mg tablet Take 2 tablets (1,000 mg total) by mouth every 6 (six) hours as needed for pain. 30 tablet 0 albuterol (PROVENTIL HFA;VENTOLIN HFA) 90 mcg/actuation inhaler Inhale 2 puffs every 4 (four) hours as needed for wheezing. 18 g 0 etonogestrel (NEXPLANON SDRM) by subdermal route. irbesartan (AVAPRO) 150 mg tablet 1 tablet Orally Once a day for 30 days labetaloL (NORMODYNE) 100 mg tablet Take 1 tablet (100 mg total) by mouth in the morning and 1 tablet (100 mg total) before bedtime. (Patient not taking: Reported on 06/24/2024) 60 tablet 2 ondansetron (ZOFRAN) 4 mg tablet Take 1 tablet (4 mg total) by mouth every 8 (eight) hours as needed for nausea or vomiting for up to 12 doses. (Patient not taking: Reported on 06/24/2024) 12 tablet 0 No current facility-administered medications for this visit. ALLERGIES Allergies Allergen Reactions Codeine Vomiting Penicillins Gives yeast infections Shellfish Derived Hives Review of Systems Review of Systems Objective Ht 165.1 cm (5' 5 ) Wt 106.5 kg (234 lb 12.8 oz) BMI 39.07 kg/m Physical Exam Physical Exam GEN AAOX3, NAD HEENT UNREMARKABLE HEART RRR LUNGS CTAB ABD BENIGN, OBESE, Mild suprapubic tenderness PELVIS: EG APPROP FOR AGE, NO LESIONS VAGINA APPROP FOR AGE, NO LESIONS BIMANUAL NO MASSES OR TENDERNESS RECTAL DEFERRED EXTREM NO CCE, NO CALF TENDERNESS Assessment/Plan: PELVIC PAIN CULTURES DONE TODAY OVARIAN CYST--RIGHT RPT SONO 3 MOS Discussed results from the pt's ultrasound including a cyst on her right ovary. Discussed Nexplanon and its risks/benefits and how it suppresses cyst formation. Discussed multiple forms of birthcontrol such as nuvaring, IUD, and the patch. Discussed studies that show increased DVT formation with the patch contraception. Discussed her platelet storage disorder is likely the cause of her hemorrhagic cysts that result in pelvic pain. Pt was most interesting in the IUD contraception, additional information was provided. Recommended a repeat US in 3 months to re-assess the cyst on right ovary. Pt questions getting her ovaries and tubes removed as a last resort option if discomfort does not approve, Dr. Eisenberg advised her the health impacts at this age would not be recommended. Discussed tubal ligation and vasectomy, it was discussed that due to the pt's platelet storage disorder it is highly recommended her partner get a vasectomy. Will follow-up in 3 months for US. MD Brittni GIL RN Emma Leis 06/24/24 1631 Ibis Richard 06/24/24 1638 documented in this encounter [facility] 05-28-2024 History of Presen t illness Narrative Lia Lim is a 29 y.o.female. No LMP recorded. Patient has had an implant.. She presents with c/o painful, heavy, prolonged periods with clots. Current contraception:Nexplanon OB History 2 Para 2 Term 2 0 AB 0 Living 2 SAB 0 IAB 0 Ectopic 0 Multiple 0 Live Births 2 MEDICAL HX Past Medical History: Diagnosis Date Anxiety Used Paxil for a time Depression Platelet storage pool disease (CMS-HCC) S/P T&A (status post tonsillectomy and adenoidectomy) 04/03/2013 SURGICAL HX Past Surgical History: Procedure Laterality Date ADENOIDECTOMY N/A 01/13/2021 Performed by Bassem Hartmann MD at [facility] OR REPEAT N/A 12/23/2022 Performed by Leana Patel MD at [facility] OR FINGER SURGERY 2002 bone spur TONSILLECTOMY WISDOM TOOTH EXTRACTION FAMILY HX Family History Problem Relation Age of Onset Thyroid disease Mother Depression Mother Cervical cancer Mother Bipolar disorder Father Schizophrenia Father Depression Father Thyroid disease Maternal Grandmother Diabetes Maternal Grandfather Hypertension Paternal Grandfather Diabetes Paternal Grandfather Bleeding Disorder Neg Hx Uterine cancer Neg Hx Ovarian cancer Neg Hx Colon cancer Neg Hx MEDS Current Outpatient Medications Medication Sig Dispense Refill acetaminophen (TYLENOL EXTRA STRENGTH) 500 mg tablet Take 2 tablets (1,000 mg total) by mouth every 6 (six) hours as needed for pain. 30 tablet 0 albuterol (PROVENTIL HFA;VENTOLIN HFA) 90 mcg/actuation inhaler Inhale 2 puffs every 4 (four) hours as needed for wheezing. 18 g 0 etonogestrel (NEXPLANON SDRM) by subdermal route. labetaloL (NORMODYNE) 100 mg tablet Take 1 tablet (100 mg total) by mouth in the morning and 1 tablet (100 mg total) before bedtime. 60 tablet 2 benzonatate (TESSALON PERLES) 100 mg capsule Take 1 capsule (100 mg total) by mouth 3 (three) times a day as needed for cough. (Patient not taking: Reported on 05/28/2024) 21 capsule 0 cetirizine (ZyrTEC) 10 mg tablet Take 1 tablet (10 mg total) by mouth in the morning. (Patient not taking: Reported on 05/28/2024) 10 tablet 0 cyclobenzaprine (FLEXERIL) 10 mg tablet Take 1 tablet (10 mg total) by mouth 3 (three) times a day as needed for muscle spasms. (Patient not taking: Reported on 05/28/2024) 20 tablet 0 lidocaine (LIDODERM) 5 % Place 1 patch on the skin daily. Remove & Discard patch within 12 hours or as directed by MD (Patient not taking: Reported on 05/28/2024) 30 patch 0 methocarbamoL (ROBAXIN) 500 mg tablet Take 1 tablet (500 mg total) by mouth 2 (two) times a day as needed for muscle spasms. (Patient not taking: Reported on 05/28/2024) 20 tablet 0 PARoxetine (PAXIL) 10 mg tablet Take 1 tablet (10 mg total) by mouth in the morning. (Patient not taking: Reported on 05/28/2024) 30 tablet 0 No current facility-administered medications for this visit. ALLERGIES Allergies Allergen Reactions Codeine Vomiting Penicillins Gives yeast infections Shellfish Derived Hives Review of Systems Review of Systems Constitutional: Negative. Respiratory: Negative. Cardiovascular: Negative. Gastrointestinal: Negative. Genitourinary: Positive for menstrual problem and pelvic pain. Neurological: Negative. Psychiatric/Behavioral: Negative. Objective BP 118/84 Ht 165.1 cm (5' 5 ) Wt 105.7 kg (233 lb) BMI 38.77 kg/m Physical Exam Vitals and nursing note reviewed. Constitutional: Appearance: Normal appearance. Cardiovascular: Rate and Rhythm: Normal rate and regular rhythm. Pulses: Normal pulses. Heart sounds: Normal heart sounds. Pulmonary: Effort: Pulmonary effort is normal. Breath sounds: Normal breath sounds. Musculoskeletal: General: Normal range of motion. Skin: General: Skin is warm and dry. Neurological: Mental Status: She is alert and oriented to person, place, and time. Psychiatric: Mood and Affect: Mood normal. Speech: Speech normal. Behavior: Behavior normal. Thought Content: Thought content normal. Judgment: Judgment normal. Assessment/Plan: Lia was seen today for menstrual problem. Diagnoses and all orders for this visit: Dysmenorrhea - Ultrasound pelvic with transvaginal; Future - CBC without diff; Future - Thyroid profile includes TSH FT4; Future Menorrhagia with irregular cycle - Ultrasound pelvic with transvaginal; Future - CBC without diff; Future - Thyroid profile includes TSH FT4; Future Discussed alternate contraception for bleeding on Nexplanon. Await labs and u/s. Follow up next week at scheduled appt with Dr. Eisenberg. All questions answered. Educational material provided through [employer]. RTO for annual / pap (due now) or sooner as needed. NICHOLAS Huitron APRN-CNP Lisa M Krotzer, APRN-CNP 05/28/24 1538 documented in this encounter [facility] 05-14-2024 History of Presen t illness Narrative Lia Lim is a 29 y.o.female. No LMP recorded.. She presents with bilateral breast pain that started about 4 days ago. Patient went to ED for evaluation and they did not see anything abnormal other than a high BP while there. Pt has a hx of a platelet storage deficiency. Pt states she was recently switched HTN medications. She notes she is having pain that starts in bilateral axillary areas and radiates underneath bilateral breasts and notes it is exacerbated with movement. She also notes pain in her upper back that is exacerbated with movement and radiates to her axilla region. Pt states she has been carrying her 1.5 and 3 year old kids who weight 20 lbs and 50 lbs respectively. Pt notes at home her BP is normally around 120/80. Current contraception:Nexplanon OB History 2 Para 2 Term 2 0 AB 0 Living 2 SAB 0 IAB 0 Ectopic 0 Multiple 0 Live Births 2 MEDICAL HX Past Medical History: Diagnosis Date Anxiety Used Paxil for a time Depression Platelet storage pool disease ([facility]-HCC) S/P T&A (status post tonsillectomy and adenoidectomy) 04/03/2013 SURGICAL HX Past Surgical History: Procedure Laterality Date ADENOIDECTOMY N/A 01/13/2021 Performed by Bassem Hartmann MD at [facility] OR REPEAT N/A 12/23/2022 Performed by Leana Patel MD at [facility] OR FINGER SURGERY 2002 bone spur TONSILLECTOMY WISDOM TOOTH EXTRACTION FAMILY HX Family History Problem Relation Age of Onset Thyroid disease Mother Depression Mother Cervical cancer Mother Bipolar disorder Father Schizophrenia Father Depression Father Thyroid disease Maternal Grandmother Diabetes Maternal Grandfather Hypertension Paternal Grandfather Diabetes Paternal Grandfather Bleeding Disorder Neg Hx Uterine cancer Neg Hx Ovarian cancer Neg Hx Colon cancer Neg Hx MEDS Current Outpatient Medications Medication Sig Dispense Refill acetaminophen (TYLENOL EXTRA STRENGTH) 500 mg tablet Take 2 tablets (1,000 mg total) by mouth every 6 (six) hours as needed for pain. 30 tablet 0 albuterol (PROVENTIL HFA;VENTOLIN HFA) 90 mcg/actuation inhaler Inhale 2 puffs every 4 (four) hours as needed for wheezing. 18 g 0 benzonatate (TESSALON PERLES) 100 mg capsule Take 1 capsule (100 mg total) by mouth 3 (three) times a day as needed for cough. 21 capsule 0 cetirizine (ZyrTEC) 10 mg tablet Take 1 tablet (10 mg total) by mouth in the morning. 10 tablet 0 etonogestrel (NEXPLANON SDRM) by subdermal route. labetaloL (NORMODYNE) 100 mg tablet Take 1 tablet (100 mg total) by mouth in the morning and 1 tablet (100 mg total) before bedtime. 60 tablet 2 lidocaine (LIDODERM) 5 % Place 1 patch on the skin daily. Remove & Discard patch within 12 hours or as directed by MD 30 patch 0 methocarbamoL (ROBAXIN) 500 mg tablet Take 1 tablet (500 mg total) by mouth 2 (two) times a day as needed for muscle spasms. 20 tablet 0 PARoxetine (PAXIL) 10 mg tablet Take 1 tablet (10 mg total) by mouth in the morning. 30 tablet 0 No current facility-administered medications for this visit. ALLERGIES Allergies Allergen Reactions Codeine Vomiting Penicillins Gives yeast infections Shellfish Derived Hives Review of Systems Review of Systems Objective There were no vitals taken for this visit. Physical Exam Breasts: breasts appear normal, no suspicious masses, no skin or nipple changes or axillary nodes. TENDERNESS MID SCAPULA UPON DIRECT PALPATION IN THE THORACIC SPINE REPRODUCIBLE WITH MOTION SUSPECT MUSCULOSKELETAL ETIOLOGY Assessment/Plan: Lia was seen today for breast pain. Diagnoses and all orders for this visit: Bilateral mastodynia THORACIC BACK PAIN WITH RADICULOPATHY TO THE BREAST PRESCRIPTION FOR FLEXERIL TO BE USED P.R.N. ALONG WITH MOTRIN OR AND/OR TYLENOL Advised the pt to avoid picking up her children to avoid re-exacerbating the pain. Also noted that Tylenol, motrin, Icy Hot, and Biofreeze can help with the pain. Noted that getting a massage or acupuncture could also help loosen her back muscles. Noted that pain can cause the pt to have high blood pressure. Offered a muscle relaxer to the pt and cautioned her to not use it while operating machinery. Pt expressed understanding and was agreeable to POC. Advised follow-up at her next well woman exam. MD LILIA GIL, HIGINIO Mcgovern 05/14/24 [id number] documented in this encounter [facility] 09-07-2023 History of Presen t illness Narrative Lia Lim is a 28 y.o.female. Patient's last menstrual period was 08/10/2023 (exact date). She presents to verify Nexplanon placement. Pt believes Nexplanon may have moved. Pt. States she was previously only able to feel part of the implant until a few weeks ago and at that time she was having pain and numbness to her LUE intermittently. She is now able to palpate the implant entirely and states the pain is gone, but the intermittent numbness persists which sometimes occurs while she is sleeping, (but not always). Pt. Is considering removal of nexplanon but is uncertain what she would want to use instead and stated desire to avoid . Pt. Also reports increased anxiety. She relates she forgot to take her BP medication this morning upon CNM mention of her BP. She states this happens with some regularity as she is a single mom trying to do everything. Current contraception:Nexplanon OB History 2 Para 2 Term 2 0 AB 0 Living 2 SAB 0 IAB 0 Ectopic 0 Multiple 0 Live Births 2 MEDICAL HX Past Medical History: Diagnosis Date Anxiety Used Paxil for a time Depression Platelet storage pool disease ([facility]) S/P T&A (status post tonsillectomy and adenoidectomy) 04/03/2013 SURGICAL HX Past Surgical History: Procedure Laterality Date ADENOIDECTOMY N/A 01/13/2021 Performed by Bassem Hartmann MD at [facility] OR REPEAT N/A 12/23/2022 Performed by Leana Patel MD at [facility] OR FINGER SURGERY 2002 bone spur TONSILLECTOMY WISDOM TOOTH EXTRACTION FAMILY HX Family History Problem Relation Age of Onset Thyroid disease Mother Depression Mother Cervical cancer Mother Bipolar disorder Father Schizophrenia Father Depression Father Thyroid disease Maternal Grandmother Diabetes Maternal Grandfather Hypertension Paternal Grandfather Diabetes Paternal Grandfather Bleeding Disorder Neg Hx Uterine cancer Neg Hx Ovarian cancer Neg Hx Colon cancer Neg Hx MEDS Current Outpatient Medications Medication Sig Dispense Refill acidophilus-pectin, citrus 25 million cell -100 mg tablet Take by mouth 3 (three) times a day with meals. (Patient not taking: Reported on 08/10/2023) etonogestrel (NEXPLANON SDRM) by subdermal route. labetaloL (NORMODYNE) 100 mg tablet Take 1 tablet (100 mg total) by mouth in the morning and 1 tablet (100 mg total) before bedtime. 60 tablet 2 labetaloL (NORMODYNE) 100 mg tablet Take 1 tablet (100 mg total) by mouth in the morning and 1 tablet (100 mg total) before bedtime. (Patient not taking: Reported on 03/09/2023) 60 tablet 5 norethindrone-e.estradioL-iron (07/15, ,) 1 mg-20 mcg (21)/75 mg (7) per tablet Take 2 tablets by mouth for 3 days then 1 tablet by mouth per day thereafter disregarding year last/inactive week of pills 84 tablet 0 PARoxetine (PAXIL) 10 mg tablet Take 1 tablet (10 mg total) by mouth in the morning. 30 tablet 0 PNV #[id number] acid-dha 35 mg iron-5 mg iron-1 mg capsule Take 1 capsule by mouth in the morning. 90 capsule 3 No current facility-administered medications for this visit. ALLERGIES Allergies Allergen Reactions Codeine Vomiting Penicillins Gives yeast infections Shellfish Derived Hives Review of Systems As noted in HPI Objective LMP 08/10/2023 (Exact Date) Physical Exam Vitals and nursing note reviewed. Constitutional: General: She is not in acute distress. Appearance: She is obese. She is not ill-appearing, toxic-appearing or diaphoretic. HENT: Head: Normocephalic and atraumatic. Eyes: Conjunctiva/sclera: Conjunctivae normal. Pulmonary: Effort: Pulmonary effort is normal. Musculoskeletal: Left upper arm: Normal. Comments: Device palpable in its' entirety Site is without any erythema, rash or abnormality. Skin: General: Skin is warm and dry. Neurological: General: No focal deficit present. Mental Status: She is alert. Psychiatric: Behavior: Behavior normal. Thought Content: Thought content normal. Judgment: Judgment normal. Comments: Slightly anxious with rapid, pressured speech. Assessment/Plan: Lia was seen today for contraception. Diagnoses and all orders for this visit: Surveillance of contraceptive implant Discussed with pt. Since symptoms of numbness continue, a side effect of nexplanon can be nerve damage and since she feels the device has moved, removal would be indicated. Further discussed that with removal symptoms may or may not resolve. Pt. Declines removal at this time states if it continues maybe she will do so later. Advised follow up with PCP to inquire if medication for BP can be adjusted to take daily since she forgets. Discussed genesite testing and pt. To follow up w/PCP for same and if unavailable can consider having done here. Pt. Also will f/u with PCP for antianxiety medication needs. Pt. Verbalized understanding. HIGINIO ESTRELLA APRN-CNM 09/07/23 1720 documented in this encounter [facility] Evaluation note Diagnosis Surveillance of contraceptive implant- Primary documented in this encounter [facility]* Diagnosis Bilateral mastodynia- Primary Acute midline thoracic back pain documented in this encounter [facility]* Diagnosis Dysmenorrhea- Primary Menorrhagia with irregular cycle documented in this encounter [facility]* Diagnosis Pelvic pain- Primary Dysmenorrhea documented in this encounter [facility] SystemInstructionsNot on filedocumented in this encounter [facility] SystemInstructionsNot on filedocumented in this encounter [facility] SystemInstructions* Attachments The following attachments cannot be sent through Care Everywhere. * Painful periods ([place]) * Heavy periods ([place]) [facility] SystemInstructionsNot on file documented in [facility] SystemInstructionsNot on file documented [facility] SystemInstructionsNot on file [facility] SystemInstructionsNot on file [facility] in [facility] Summary Purpose Family History No Family History Records FoundNo Family History Records FoundNo Family History Records FoundNo Family History Records FoundNo Family History Records FoundNo Family History Records FoundNo Family History Records FoundNo Family History Records Found Advance Directives Latest Code Status on File Code Status Date Activated Date Inactivated Comments Full Code 12/23/2022 8:28 AM 12/24/2022 5:20 PM Code Status History Code Status Date Activated Date Inactivated Comments Full Code 01/18/2021 5:20 PM 01/18/2021 11:10 PM Full Code 01/13/2021 10:08 AM 01/16/2021 4:25 PM Full Code 01/12/2021 4:15 PM 01/12/2021 9:31 PM Date Activated Date Inactivated Comments 12/23/2022 8:28 AM 12/24/2022 5:20 PM Date Activated Date Inactivated Comments 01/18/2021 5:20 PM 01/18/2021 11:10 PM Date Activated Date Inactivated Comments 01/13/2021 10:08 AM 01/16/2021 4:25 PM Date Activated Date Inactivated Comments 01/12/2021 4:15 PM 01/12/2021 9:31 PM Additional Source Comments INFORMATION SOURCE (unrecogn ized section and content) DATE CREATED AUTHOR 12/15/2017 [facility] DATE CREATED AUTHOR AUTHOR'S ORGANIZ ATION 04/25/2018 [facility] DATE CREATED AUTHOR AUTHOR'S ORGANIZ ATION 09/01/2018 [facility] DATE CREATED AUTHOR AUTHOR'S ORGANIZ ATION 05/09/2022 [facility] DATE CREATED AUTHOR AUTHOR'S ORGANIZ ATION 05/19/2024 [facility] DATE CREATED AUTHOR AUTHOR'S ORGANIZ ATION 06/26/2024 [facility] DATE CREATED AUTHOR AUTHOR'S ORGANIZ ATION 07/25/2024 [facility] DATE CREATED AUTHOR AUTHOR'S ORGANIZ ATION 07/28/2024 [facility] Reason for Visit (unrecogniz ed section and content) Reason Comments Contraception Reason Comments Breast Pain Reason Comments Menstrual Problem Heavy cycles Reason Comments Annual Exam Reason Onset Date Comments Abdominal Pain 07/26/2024 Reason Onset Date Comments having severe pain from a cyst 07/28/2024 Care Teams (unrecognized sec tion and content) Spool Worker Relationship Specialty Start Date End Date Alycia Tijerina, PUTTY WORKER-BELL TIER [address], [facility] [place] [id number] PCP - General Family Medicine 09/21/22 Spool Worker Relationship Specialty Start Date End Date Aylcia Tijerina APRN-CNP [address], [place] [address] PCP - General Family Medicine 05/12/24 Spool Worker Relationship Specialty Start Date End Date Alycia Tijerina APRN-BELL TIER [address], [place] [address] PCP - General Family Medicine 05/12/24 Spool Worker Relationship Specialty Start Date End Date Alycia Tijerina APRN-CNP [address], [place] [address] PCP - General Family Medicine 05/12/24 Spool Worker Relationship Specialty Start Date End Date Alycia Tijerina APRN-BELL TIER [address], [place] [address] PCP - General Family Medicine 05/12/24 Spool Worker Relationship Specialty Start Date End Date Alycia Tijerina APRN-CNP [address], [place] [address] PCP - General Family Medicine 05/12/24 Spool Worker Relationship Specialty Start Date End Date Alycia Tijerina APRN-BELL TIER [address], [place] [address] PCP - General Family Medicine 05/12/24 Spool Worker Relationship Specialty Start Date End Date Alycia Tijerina APRN-BELL TIER [address], [place] [address] PCP - General Family Medicine 05/12/24 FOR RECORDS PERTAINING TO PATIENTS WHO ARE OR HAVE BEEN ENROLLED IN A CHEMICAL DEPENDENCY/SUBSTANCEABUSE PROGRAM, SOME INFORMATION MAY BE OMITTED. This clinical summary was aggregated from multiple sources. Caution should be exercised in using it in the provision of clinical care. This summary normalizes information from multiple sources, and as a consequence, information in this document may materially change the coding, format and clinical context of patient data. In addition, data may be omitted in some cases. CLINICAL DECISIONS SHOULD BE BASED ON THE PRIMARY CLINICAL RECORDS. [facility] [employer] [facility]. provides no warranty or guarantee of the accuracy or completeness of information in this document.
[2024-07-28] MEDS: KETOROLAC TROMETHAMINE 60 MG/2 ML VIAL IM (12:13)
--- NOTE | 2024-07-28 14:53 | ED_ITS ---
HPI - Abdominal Pain General Chief Complaint: Abdominal Pain Stated Complaint: ABDOMINAL PAIN Time Seen by Provider: 07/28/24 11:06 Source: patient Mode of arrival: walk-in Limitations: no limitations History of Present Illness HPI narrative: The patient comes to the ER with a 3 days history of right lower quadrant pain that been going on at least since Monday, the pain is not associated with any nausea or vomiting and her appetite is normal there is also no change in her bowel movement, patient have no fever no chills She presented to [facility] twice on Monday first she was evaluated with a CAT scan and the blood workup that showed no acute pathology except for the cyst on the right ovary, then she presented again to them and they did do an ultrasound that shows that the patient have ovarian cyst with no other acute pathology Patient was referred to see her [employer] doctor but she could not get into her [employer] doctor x-ray for the next month The patient is complaining of right lower quadrant pain saying that the medication that she was provided with is not helping, the patient does not look in distress and the pain is still continuous since Monday Related Data Home Medications ?Medication ?Instructions ?Recorded ?Confirmed albuterol sulfate 90 mcg/actuation 2 puff inhalation Q4H PRN 11/01/23 11/01/23 aerosol inhaler shortness of breath or wheezing azithromycin 250 mg tablet 250 mg PO DAILY 11/01/23 11/01/23 Previous Rx's ?Medication ?Instructions ?Recorded hydrocodone-homatropine 5 mg-1.5 5 ml PO Q6H PRN cough #60 mL 11/01/23 mg/5 mL (5 mL) oral syrup (Hycodan) diclofenac sodium 75 mg 75 mg PO BID PRN pain #14 tabs 07/28/24 tablet,delayed release Allergies Allergy/AdvReac Type Severity Reaction Status Date / Time Penicillins AdvReac Intermediate yeast Verified 11/01/23 09:01 infection Review of Systems ROS Status of ROS 10 or more systems reviewed and unremark able except as noted in history and below PFSH PFSH Social History Little interest or pleasure in doing things: not at all Feeling down, depressed, or hopeless: not at all Exam Narrative Exam Narrative: Nurses notes and vital signs reviewed and patient is not hypoxic. General: Well-appearing and in no apparent distress. Skin: Warm, dry, no pallor noted. No rash. Head: Normocephalic, atraumatic. Neck: Supple, non-tender. Eye: Pupils are equal, round and EOMI. No scleral icterus. Ears, Nose, Mouth, and Throat: TM are clear, no nasal mucosal hypertrophy. Oral mucosa is moist, no posterior oropharynx erythema, uvula is mid-line Cardiovascular: Regular Rate and Rhythm without murmur, gallop or rub. Respiratory: No accessory muscle use or respiratory distress. Lungs are clear to auscultation, no wheezing, rales or rhonchi Chest Wall: no tenderness Back: No midline thoracic or lumbar vertebral tenderness. No CVA tenderness Musculoskeletal: normal ROM, no calf or popliteal tenderness, no lower extremi ty edema/swelling GI: Abdomen is soft, non-distended. Normal bowel sounds. No masses appreciated. Right lower quadrant tenderness and mild superficial palpation Neurological: A&O x4. No cranial nerve dysfunction observed. No truncal ataxia. Moves all extremities. Sensation intact. Psychiatric: Cooperative and interactive. Normal mood and affect. Constitutional Vital Signs, click to edit/add: Last Vital Signs Temp 98.9 F 07/28/24 10:59 Pulse 91 H 07/28/24 10:59 Resp 18 07/28/24 10:59 BP 146/89 H 07/28/24 10:59 Pulse Ox 98 07/28/24 10:59 O2 Del Method Room Air 07/28/24 10:59 Course Vital Signs Vital signs: Vital Signs Temperature 98.9 F 07/28/24 10:59 Pulse Rate 91 H 07/28/24 10:59 Respiratory Rate 18 07/28/24 10:59 Blood Pressure 146/89 H 07/28/24 10:59 Pulse Oximetry 07/28/24 10:59 Oxygen Delivery Method Room Air 07/28/24 10:59 Temperature 98.9 F 07/28/24 10:59 Pulse Rate 91 H 07/28/24 10:59 Respiratory Rate 18 07/28/24 10:59 Blood Pressure 146/89 H 07/28/24 10:59 Pulse Oximetry 98 07/28/24 10:59 Oxygen Delivery Method Room Air 07/28/24 10:59 MDM - Abdominal Pain MDM Narrative Medical decision making narrative: The patient pain is continuous since Monday showed he had a negative test in addition to a CAT scan that showed her appendix is normal in addition to the fact that she had an ultrasound of her ovaries that shows ovarian cyst The patient is sitting right now with no distress and the pain according to her has been the same since Monday, I did offer her to redo the ultrasound but I explained to her that she have to wait for us to call the photogrammetric technician from home. The patient main concern seems that she does not have a plan to her to do the ovarian cyst . I did call Dr. Winn the SCIENTIST doctor on-call and he will follow-up with the patient within this week The patient had the plan explained to her and I offered her that in case the pain not getting any better she can come back right away to us today and we will be able to call the ultrasound if needed but right now with the patient symptoms continued since Monday and the fact that her presentation right now is not concerning for acute appendicitis or any other reason other than the ovaries The patient will be discharged home with Voltaren after she received Toradol Otherwise the patient will follow-up with Dr. Winn and call his office tomorrow The patient is to follow up with primary care physician in next 2-3 days or to return to the emergency department should any of the signs or symptoms worsen or new symptoms develop. The patient agrees with the following Diagnosis and Treatment plan and the patient will be discharged home. Discharge Plan Discharge Chief Complaint: Abdominal Pain Clinical Impression: Ovarian cyst Patient Disposition: Home, Self-Care Time of Disposition Decision: 12:05 Condition: Good Prescriptions / Home Meds: New diclofenac sodium 75 mg tablet,delayed release (DR/EC) 75 mg PO BID PRN (Reason: pain) Qty: 14 0RF No Action azithromycin 250 mg tablet 250 mg PO DAILY albuterol sulfate 90 mcg/actuation HFA aerosol inhaler 2 puff INHALATION Q4H PRN (Reason: shortness of breath or wheezing) hydrocodone-homatropine [Hycodan] 5-1.5 mg/5 mL (5 mL) syrup 5 ml PO Q6H PRN (Reason: cough) Qty: 60 0RF Print Language: German Instructions: Ovarian Cyst (ED) Referrals: Sesar Winn DO [Physician] - As soon as possible (please call Monday to be seen in the coming week ) ZAIRE TIJERINA [Primary Care Provider] - 1 week Discharge Date/Time: 07/28/24 12:14
== END 2024-07-28 12:14 | disposition home or self-care (01) ==
PROVIDERS: Emergency Provider Emergency Medicine; PCP Nurse Practitioner Family
DX: N83.201 Unspecified ovarian cyst, right side (principal); R10.31 Right lower quadrant pain
CPT/HCPCS: 96372; 99284; J1885

== ENCOUNTER 2025-02-26 09:19 | Outpatient (OUT) | payer OTHER, SELFPAY ==
--- OUTSIDE RECORDS SUMMARY | 2024-08-26 05:20 | XMS_ITS ---
Author Organization The [facility] in [place] Address [address] [place] [address] Care Team Providers Care Equalizer Operator Name Role Phone Alycia Patterson Primary Care Provider [phone] REASON FOR VISIT 1 mo f/u Encounters Encounter Location Date Provider Diagnosis [facility] [address] [place] [address] 08/26/2024 Alycia Patterson Plan Of Treatment No Information Progress Notes * Lia LIM ADOB:1994 (29 yo F)Acc No.[id number]:08/26/2024 Patient: Melissa SHRAVANPAVITHRA Lia Amezquita :1995 A ge:29 Y S ex:Female Address:[address] [place] [address], [phone] * true * Date: Generated for Jossie connolly/Karla/eTransmitting on: 0 02/26/2025 09:22 AM EDT
--- OUTSIDE RECORDS SUMMARY | 2024-09-03 11:30 | XMS_ITS ---
Author Organization The [facility] [place] Address [address] [place] [address] Care Team Providers Care Mining Machinery Assembler Name Role Phone Alycia Patterson Primary Care Provider Allergies Allergen (clinical drug ingredient) Drug/Non Drug Allergy documented on EMR Reaction Allergy Type Onset Date Status codeine Codeine Unknown Drug Allergy Active oxycodone Oxycodone Unknown Drug Allergy Active Penicillin Unknown Drug Allergy Active REASON FOR VISIT Presents to office for follow up on b/p. Medications Medication SIG (Take, Route, Frequency, Duration) Notes Start Date End Date Status hydrOXYzine Pamoate 25 MG 1 capsule Oral BID prn for 30 days Active busPIRone HCl 5 MG 1 tablet Oral Twice a day for 30 days Active PARoxetine HCl 10 MG 1 tablet in the mor jaguar Oral Once a day for 30 days Active Labetalol HCl 100 MG 1 tablet Orally Twi ce a day for 30 days Active Adipex-P 37.5 MG 1 tablet before lucy kfast Orally Once a day for 30 days 09/03/2024 Active Social History Tobacco Use: Social History Observation Description Date Details (start date - stop date) Never Smoker NA - NA Tobacco Use/Smoking Question Answer Notes Patient is a nonsmoker AUDIT-C (Standard) Question Answer Notes Did you have a drink containing alcohol in the p ast year? No Points 0 Interpretation Negative Problems Problem Type SNOMED Code ICD Code Onset Dates Problem Status W/U Status Risk Notes Problem Obese class II (finding) ([id number] 105) Class 2 obesity (E66.9) Active confirmed Vital Signs Blood pressure systolic 132 mm Hg 09/04/19 25 Blood pressure diastolic 84 mm Hg 025 Height 65.5 in 09/03/2024 Weight 223.8 lbs 09/03/2024 BMI 36.67 kg/m2 09/03/2024 Encounters Encounter Location Date Provider Diagnosis [facility] [address] [facility] [place] [address] 09/03/2024 Alycia Patterson Essential (primary) hypertension I10 and Class 2 obesity E66.9 Assessments Encounter Date Diagnosis (ICD Code) Assessment Notes Treatment Notes Treatment Clinical Notes Section Notes 09/03/2024 Essential (primary) hypertension (ICD-10 - I10) monitor BP , restart labetolol if needed 09/03/2024 Class 2 obesity (ICD-10 - E66.9) work on diet portion control fu one month CSA signed OARRS reviewed Plan Of Treatment Medication Medication Name Sig Start Date Stop Date Notes Labetalol HCl 100 MG 1 tablet Orally Twi ce a day for 30 days Adipex-P 37.5 MG 1 tablet before lucy kfast Orally Once a day for 30 days 09/03/2024 Treatment Notes Assessment Notes Essential (primary) hypertension monitor BP , restart labetolol if needed Class 2 obesity work on diet portion control fu one month CSA signed OARRS reviewed Next Appt Details Follow Up: 4 Weeks,prn, Reas on: Progress Notes * Lia LIM ADOB:1994 (29 yo F)Acc No.[id number]:09/03/2024 Progress Note Patient: Lia PEARSON Provider: Chano Patterson ([facility]), ELECTRICAL SERVICE TECHNICIAN :1995 A ge:29 Y S ex:Female Date:09/03/2024 Address:[address] [place], [place] [id number] Check In:03:14 PM ESTCheck O ut:03:38 PM EST Subjective: * Chief Complaints: * 1 . Presents to office for follow up on b/p.. * HPI: G eneral: BP 108/68- 132/85 restart adipex. * ROS: G eneral/Constitutional: Patient complaining of d ifficult time losing wt. F ever d enies. H eadache d enies. W eight loss d enies. O phthalmologic: Discharge d enies. E ye Pain d enies. I tching and redness d enies. E NT: Nasal discharge d enies. N douglas congestion d enies.?Sore throat d enies. C ardiovascular: Chest tightness/ heavy pressure d enies. R apid heart rate d enies. S welling of extremities d enies. C hest pain d enies. ? R espiratory: Productive cough d enies. C hest pain d enies. C ough d enies. S hortness of breath d enies. W heezing d enies. ? G astrointestinal: Abdominal pain d enies. C onstipation d enies. D ecreased appetite d enies. D iarrhea d enies. N ausea d enies. V omiting?denies. G enitourinary: Urinary incontinence d enies. P ainful urination d enies. M usculoskeletal: Back pain d enies. N karen pain d enies. M uscle aches d enies. S kin: Rash d enies. S kin lesion(s) d enies. ? 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 * Surgical History: B one Spur removal finger , Tonsils and Adnoids , [place] teeth , x 2 . * Hospitalization/Major Diagno stic Procedure: c -section . * Family History: F ather: alive, bipolar, schizophrenia, diagnosed with Diabetes mellitus without mention of complication, type II or unspecified type, not stated as uncontrolled, Unspecified essential hypertension. M other: alive, Migraine HAs, depression, cervical cancer, diagnosed with Other malignant neoplasm of unspecified site. 2 daughter(s) . . * Social History: T obacco Use: T obacco Use/Smoking P atient is a n onsmoker D rug/Alcohol: A JOY-C (Standard) D id you have a drink containing alcohol in the past year? N o P oints 0 I nterpretation N egative * Medications: T aking busPIRone HCl 5 MG Tablet 1 tablet Oral Twice a day , Taking hydrOXYzine Pamoate 25 MG Capsule 1 capsule Oral BID prn , Taking PARoxetine HCl 10 MG Tablet 1 tablet in the morning Oral Once a day , Discontinued Labetalol HCl 100 MG Tablet 1 tablet Orally Twice a day , Medication List reviewed and reconciled with the patient * Allergies: C odeine, Penicillin, Oxycodone. Objective: * Vitals: W t:223.8lbs, Ht: 65.5 in, BP:132/84mm Hg, BMI:36.67Index, Ht-cm: 166.37 cm, Wt- k.51 kg. * Examination: G eneral Examinations: GENERAL APPEARANCE: a lert and oriented, i n no acute distress. EYES: c onjunctiva normal, sclera non-icteric. LYMPH NODES: n ormal, no cervical, axillary, or inguinal adenopathy. LUNGS: c lear to auscultation bilateral. CARDIO: r egular rate and rhythm, S1, S2 normal. MUSCULOSKELETAL: G ait and station normal. SKIN: w arm and dry. Assessment: * Assessment: 1. C lass 2 obesity - E66.9 (Primary) 2 . E ssential (primary) hypertension - I10 Plan: * Treatment: 2. E ssential (primary) hypertension Refill Labetalol HCl Tablet, 100 MG, 1 tablet, Orally, Twice a day, 30 days, 60 Tablet, Refills 5.? Notes: monitor BP , restart labetolol if needed * Preventive Medicine: Screenings/Counseling: B FL ACTION PLAN Above Normal BMI Follow-up D ietary management education, guidance, and counseling See treatment section of progress note for complete details of management plan. * Follow Up: 4 Weeks,prn * * Electronically signed by Quynh Patterson , SUPERVISING FLOORPERSON, IMAGE SCIENTIST.ELECTRICAL SERVICE [id number] on 09/04/2024 at 11:55 AM EDT Sign off status: Completed Visit Status: C HK (Check Out) true * Provider: Chano Patterson ([facility]), ELECTRICAL SERVICE TECHNICIAN Date: 0 09/03/2024 Generated for Jossie connolly/Karla/eTransmitting on: 0 02/26/2025 09:22 AM EDT History and Physical Notes * HPI (History of Present Illness) Category Sub-Category Detail Notes Category Not es General BP 108/68- 132/85 restart adipex Examination Category Sub-Category Detail Notes Category Not es General Examinations GENERAL APPEARANCE: alert a nd oriented, in no acute distress EYES: conjunctiva normal, sclera non-icteric EARS: NOSE: THROAT: CARDIO: regular rate and rhy thm, S1, S2 normal LUNGS: clear to auscultatio n bilateral ABDOMEN: SKIN: warm and dry BACK: MUSCULOSKELETAL: Gait and station nor mal LYMPH NODES: normal, no cervical, axillary, or inguinal adenopathy
--- OUTSIDE RECORDS SUMMARY | 2024-10-03 11:30 | XMS_ITS ---
Author Organization The [facility] in [place] Address [address] [place] [address] Care Team Providers Care Php Website Developer Name Role Phone Alycia Patterson Primary Care Provider [phone] REASON FOR VISIT 1 month. needs to sign CSA. Did not sign last one Encounters Encounter Location Date Provider Diagnosis [facility] [address] [place] [address] 10/03/2024 Alycia Patterson Plan Of Treatment No Information Progress Notes * LIMLia ADOB:1994 (29 yo F)Acc No.[id number]:10/03/2024 UNLOCKED PROGRESS NOTE Progress Note Patient: Lia PEARSON Provider: Chano Patterson CNP (TTC) :1995 A ge:29 Y S ex:Female Date:10/03/2024 Address:[address] [place], [place] [id number] Subjective: * Chief Complaints: * 1 . 1 month. needs to sign CSA. Did not sign last one. * Medical History: Objective: * Vitals: Assessment: Plan: * Treatment: * * Electronic signature of Pratibha Higginbotham NP, BILLBOARD MECHANIC.DISASTER [id number] on 02/26/2025 at 09:23 AM EDT Sign off status: Pending Visit Status: N /S N/C (No Show/No Charge) * Provider: Chano Patterson CNP (TTC) Date: 0 10/03/2024 Generated for Jossie connolly/Karla/Cheikh on: 0 02/26/2025 09:23 AM EDT
--- OUTSIDE RECORDS SUMMARY | 2025-02-21 04:11 | XMS_ITS ---
Author Organization The [facility] in [place] Address [address] [place] [address] Care Team Providers Care Self Propelled Dredge Operator Name Role Phone LeonardoQuynhAlycia Primary Care Provider [phone] REASON FOR VISIT testing Encounters Encounter Location Date Provider Diagnosis [facility] [address] [place] [address] 02/21/2025 Alycia Patterson Spotting N92.0 Assessments Encounter Date Diagnosis (ICD Code) Assessment Notes Treatment Notes Treatment Clinical Notes Section Notes 02/21/2025 Spotting (ICD-10 - N92.0) Plan Of Treatment Pending Test Test Name Order Date PREG QUANT HCG 02/21/2025 Progress Notes * Lia LIM ADOB:1994 (29 yo F)Acc No.[id number]:02/21/2025 Patient: Melissa SHRAVANPAVITHRALia :1995 A ge:29 Y S ex:Female Address:[address] [place] [address], [address] Subjective: * Chief Complaints: * P regnancy testing * Medical History: * Surgical History: * Hospitalization/Major Diagno stic Procedure: * Medications: Objective: * Vitals: * Physical Examination: Assessment: * Assessment: 1. S potting - N92.0 Plan: * Treatment: * Procedure Codes: * true * Date: Generated for Printi ng/Faxing/eTransmitting on: 0 02/26/2025 09:23 AM EDT
--- OUTSIDE RECORDS SUMMARY | 2025-02-25 05:00 | XMS_ITS ---
Author Organization The [facility] in [place] Address [address] [place] [address] Care Team Providers Care Chucking Lathe Operator Name Role Phone Alycia Patterson Primary Care Provider REASON FOR VISIT want to discuss control Encounters Encounter Location Date Provider Diagnosis [facility] [address] [place] [address] 02/25/2025 Alycia Patterson Plan Of Treatment No Information Progress Notes * Lia LIM ADOB:1994 (29 yo F)Acc No.[id number]:02/25/2025 UNLOCKED PROGRESS NOTE Progress Note Patient: Lia PEARSON Provider: Chano Patterson CNP (TTC) :1995 A ge:29 Y S ex:Female Date:02/25/2025 Address:[address] [place], [place] [id number] Subjective: * Chief Complaints: * 1 . Want to discuss control. * Medical History: Objective: * Vitals: Assessment: Plan: * Treatment: * * Electronic signature of Pratibha Higginbotham NP, SUB PRIOR.SUPERVISOR WOOD [id number] on 02/26/2025 at 09:23 AM EDT Sign off status: Pending Visit Status: N /S N/C (No Show/No Charge) * Provider: Chano Patterson CNP (TTC) Date: 0 02/25/2025 Generated for Printi ng/Faenmag/eTransmitting on: 0 02/26/2025 09:23 AM EDT
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
--- OUTSIDE RECORDS SUMMARY | 2025-02-26 09:22 | XMS_ITS | Encounter Summary ---
Author Organization [employer] tem Address [id number] [address] [place] [address] Care Team Providers Care Contact Acid Plant Operator Helper Name Role Phone LeonardoAlycia Rubens RN OSTOMY-ACCT EXEC Primary Care Provider Encounter Details Date Type Department Care Team (Late st Contact Info) Description 12/22/2022 Telephone [facility] [address] [place] [phone] Sarah Cruz RN Social History Tobacco Use Types Packs/Day Years Used Date Smoking Tobacco: Never Smokeless Tobacco: Never Alcohol Use Standard Drinks/Week Comments Not Currently 0 (1 standard drink = 0.6 oz pur e alcohol) socially Overall Financial Resource Strain (CARDIA) Answe r Date Recorded How hard is it for you to pa y for the very basics like food, housing, medical care, and heating? Not hard at all 02/17/2021 PHQ-2 Answer Date Recorded Total Score 0 11/22/2022 PRAPARE - Transportation Answer Date Re corded In the past 12 months, has l ack of transportation kept you from medical appointments or from getting medications? No 12/14/2020 Lack of Transportation (Non-Medical) Not on file 12/14/2020 [place] Depression Scale Answer Date Recorded [place] Depression Scale Total 5 02/24/2021 The thought of harming myself has occurred to me . Never 02/24/2021 Housing Instability Answer Date Recorde d Are you worried or concerned that in the next two months you may not have stable housing that you own, rent or stay in as a part of a household? No 12/20/2022 Childcare Answer Date Recorded Do problems getting child ca re make it difficult for you to work or study? 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 BP measured 111/76. * Telephone Encounter - Sammie De DO - 12/22/2022 9:30 AM EDT Normal BP, continue checking them as directed and keep next scheduled appt. Thanks documented in this encounter Plan of Treatment Upcoming Encounters Date Type Department Care Team (Late st Contact Info) Description 02/26/2025 3:00 PM EDT Hospital Encounter [facility] - Ultrasound [address] [place] [phone] documented as of this encounter Visit Diagnoses Not on filedocumented in this encounter Additional Health Concerns Assessment Noted Time PHQ-9 Depression Total Score: 0 11/23/19 3:58 PM EDT A Body Mass Index follow-up plan has been documented for the patient 04/15/2021 1:40 PM EDT documented as of this encounter Care Teams Contact Acid Plant Operator Helper Relationship Specialty Start Date End Date Alycia Patterson, RN OSTOMY-ACCT EXEC [address] [place] [address] PCP - General Family Medicine 05/12/24 documented as of this encounter
--- OUTSIDE RECORDS SUMMARY | 2025-02-26 09:22 | XMS_ITS | Encounter Summary ---
Author Organization [employer] [facility] tem Address [id number] [address] [place] [address] Care Team Providers Care Electric Motor Analyst Name Role Phone Alycia Patterson Rubens SOFTWARE DEVELOPER INTERN-ORGANIC CHEMIST Primary Care Provider Encounter Details Date Type Department Care Team (Late st Contact Info) Description 05/05/2022 Telephone [facility] [address] [place] [address] Delphine Vergara Social History Tobacco Use Types Packs/Day Years [...] 02/17/2021 PHQ-2 Answer Date Recorded Total Score 7 04/13/2021 PRAPARE - Transportation Answer Date Re corded In the past 12 months, has l ack of transportation kept you from medical appointments or from getting medications? No 12/14/2020 Lack of Transportation (Non-Medical) Not on file 12/14/2020 [place] Depression Scale Answer Date Recorded [place] Depression Scale Total 5 02/24/2021 The thought of harming myself has occurred to me . Never 02/24/2021 Childcare Answer Date Recorded Do problems getting [...] file Not on file Not on file COVID-19 Exposure Response Date Recorded In the last month, have you been in contact with someone who was confirmed or suspected to have Coronavirus / COVID-19? No / Unsure 05/05/2022 12:52 PM EST documented as of this encounter Plan of Treatment Upcoming Encounters Date Type Department Care Team (Late st Contact Info) Description 02/26/2025 3:00 PM EDT Hospital Encounter [facility] - Ultrasound [address] [place] [phone] documented as of this encounter Visit Diagnoses Not on filedocumented in this encounter Additional Health Concerns Assessment Noted Time PHQ-9 Depression Total Score: 7 04/13/20 3:43 PM EDT A Body Mass Index follow-up plan has been documented for the patient 04/15/2021 1:40 PM EDT documented as of this encounter Care Teams Electric Motor Analyst Relationship Specialty Start Date End Date Alycia Patterson, SOFTWARE DEVELOPER INTERN-ORGANIC CHEMIST [address] [facility], [place] [address] PCP - General Family Medicine 05/12/24 documented as of this encounter
--- OUTSIDE RECORDS SUMMARY | 2025-02-26 09:22 | XMS_ITS | Patient Health Record ---
Author Organization [facility] [place] Address [address] [place] [address] Care Team Providers Care Land Surveyor Manager Name Role Phone Alycia Patterson Primary Care Provider Allergies Allergen (clinical drug ingredient) Drug/Non Drug Allergy documented on EMR Reaction Allergy Type Onset Date Status codeine Codeine Unknown Drug Allergy Active oxycodone Oxycodone Unknown Drug Allergy Active Penicillin Unknown Drug Allergy Active Reason For Referral No Information Medications Medication SIG (Take, Route, Frequency, Duration) Notes Start Date End Date Status Adipex-P 37.5 MG 1 tablet before lucy kfast Orally Once a day for 30 days 09/03/2024 Active hydrOXYzine Pamoate 25 MG 1 capsule Oral BID prn for 30 days Active busPIRone HCl 5 MG 1 tablet Oral Twice a day for 30 days Active PARoxetine HCl 10 MG 1 tablet in the mor jaguar Oral Once a day for 30 days Active Labetalol HCl 100 MG 1 tablet Orally Twi ce a day for 30 days Active Social History Tobacco Use: Social History Observation Description Date Details (start date - stop date) Never Smoker NA - NA Tobacco Use/Smoking Question Answer Notes Patient is a nonsmoker Alcohol Screen (Audit-C) Question Answer Notes Did you have a drink containing alcohol in the p ast year? No Points 0 Interpretation Negative AUDIT-C (Standard) Question Answer Notes Did you have a drink containing alcohol in the p ast year? 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 Problem Anxiety (11195030) Anxiety (F41.9) Active confirmed Problem Spotting (7218514) Spotting (N92.0) Active confirmed Problem Obese class II (finding) (8259388594893 05) Class 2 obesity (E66.9) Active confirmed Vital Signs Blood pressure diastolic 84 mm Hg 09/03/2024 Height 65.5 in 09/03/2024 Blood pressure systolic 132 mm Hg 09/03/2024 Weight 223.8 lbs 09/03/2024 BMI 36.67 kg/m2 09/03/2024 Encounters Encounter Location Date Provider Diagnosis [facility] [address] [place] [address] 03/15/2024 Alycialitzy Patterson Essential (primary) hypertension I10 and Overweight E66.3 [place] [address] [place] [address] 05/14/2024 Alycialitzy Patterson Essential (primary) hypertension I10 and Anxiety F41.9 [place] [address] [place] [address] 07/23/2024 Alycia Patterson Anxiety F41.9 and Essential (primary) hypertension I10 [facility] [address] [place] [address] 09/03/2024 Alycia Patterson Essential (primary) hypertension I10 and Class 2 obesity E66.9 [facility] [address] [place] [address] 03/20/2024 Alycia Patterson [facility] [address] [place] [facility] [place] [address] 08/13/2024 Alycialitzy Patterson Essential (primary) hypertension I10 [facility] [address] [place] [address] 08/26/2024 Alycia Patterson [facility] [address] [place] [address] 02/21/2025 Alycia Patterson Spotting N92.0 Assessments Encounter Date Diagnosis (ICD Code) Assessment Notes Treatment Notes Treatment Clinical Notes Section Notes 03/15/2024 Essential (primary) hypertension (ICD-10 - I10) continue monitor fu 4 weeks bp check 03/15/2024 Overweight (ICD-10 - E66.3) work on diet increase protein, decrease carbs fu one month OARRS reviewed, CSA signed 05/14/2024 Essential (primary) hypertension (ICD-10 - I10) BP ok today, home BPS ok continue monitor notify office if consistently running high 05/14/2024 Anxiety (ICD-10 - F41.9) fu psych , counseling they are managing meds 07/23/2024 Anxiety (ICD-10 - F41.9) consider counseling fu one month 07/23/2024 Essential (primary) hypertension (ICD-10 - I10) monitor BP at home fu one month 09/03/2024 Essential (primary) hypertension (ICD-10 - I10) monitor BP , restart labetolol if needed 09/03/2024 Class 2 obesity (ICD-10 - E66.9) work on diet portion control fu one month CSA signed OARRS reviewed 08/13/2024 Essential (primary) hypertension (ICD-10 - I10) 02/21/2025 Spotting (ICD-10 - N92.0) Plan Of Treatment Pending Test Test Name Order Date CMP (COMPLETE METABOLIC PANEL) 3 IRON, TOTAL 05/22/2023 CBC WITH DIFF 05/22/2023 VITAMIN D, 25 LEVEL (TOTAL) 05/22/2023 PT and PTT 05/22/2023 SARS COVID-2 NASAL - PCR 05/11/2023 PREG QUANT HCG 02/21/2025 THYROID PANEL (T4/TSH/FREE T3) 3 Insurance Providers Payer Name Payer Address Payer Phone Subscriber Number Group Number Insured Name Patient Relationship to Insured Coverage Start Date Coverage End Date [employer] [place] [address] [place] [address] [phone] [id number] Lia Lim Self - patient is the insured Medical (General) History Medical History History ICD Code Irregular menses N92.6 Enlarged lymph node R59.9 Blood disorder D75.9 Anxiety and depression F41.8 Surgical History Surgery Date(Month/Year) x 2 Anita teeth Tonsils and Adnoids Bone Spur removal finger Hospitalization History Reason Date(Month/Year)
--- OUTSIDE RECORDS SUMMARY | 2025-02-26 09:22 | XMS_ITS | Encounter Summary ---
Author Organization [employer] tem Address [facility] [id number] [address] [place] [address] Care Team Providers Care Supervisor Fish Bait Processing Name Role Phone LeonardoAlycia Rubens DESIZING MACHINE BACK TENDER-SUPERVISOR ORNAMENTAL IRONWORKING Primary Care Provider Encounter Details Date Type Department Care Team (Late st Contact Info) Description 08/26/2024 Telephone [facility] [address] [place] [phone] Leah Dent Social History Tobacco Use Types Packs/Day Years [...] of Transportation (Non-Medical) Not on file 12/14/2020 [place]nelly Depression Scale Answer Date Recorded Donnelly Depression Scale Total 22 01/24/2023 The thought [...] on file documented as of this encounter Miscellaneous Notes * Telephone Encounter - Leah Dent - 08/26/2024 3:00 PM EST Patient called asking if there are any vitamins/supplements to help with ph balance? Please advise. * Telephone Encounter - FABY Chung - 08/26/2024 3:00 PM EST Patient could try taking oral probiotic for gut and vaginal health. Another option is VAGINAL suppository - Boric Acid Vaginal Suppository, over the counter, 600mg pervagina can help with pH. This medication is toxic if swallowed. Avoid soaps, dry thoroughly after showering, sometimes taking a tub bath with a cup of white vinegar can be soothing, wear cotton underwear, wash underwear in hot water,avoid wearing thong underwear or tight fitting clothing, eat a low sugar diet, take an oral probiotic, eat yogurt with live cultures. It is recommended to use condoms with sex if sexually active, and it is recommended not to have sex when you're having symptoms or if being treated. FABY CHUNG documented in this encounter Plan of Treatment Upcoming Encounters Date Type Department Care Team (Late st Contact Info) Description 02/26/2025 3:00 PM EDT Hospital Encounter [facility] - Ultrasound [address] [place] [address] documented as of this encounter Visit Diagnoses Not on filedocumented in this encounter Additional Health Concerns Assessment Noted Time PHQ-9 Depression Total Score: 12 024 3:54 PM EST A Body Mass Index follow-up plan has been documented for the patient 04/15/2021 1:40 PM EDT documented as of this encounter Care Teams Supervisor Fish Bait Processing Relationship Specialty Start Date End Date Alycia Patterson APRN-CNP [address] [facility], [place] [phone] PCP - General Family Medicine 05/12/24 documented as of this encounter
--- OUTSIDE RECORDS SUMMARY | 2025-02-26 09:22 | XMS_ITS | Encounter Summary ---
Author Organization [employer] tem Address [facility] [id number] [address] [place] [address] Care Team Providers Care Unloader Operator Name Role Phone Alycia Patterson QUALITY ASSURANCE CALIBRATOR-MANAGER CHANGE Primary Care Provider Encounter Details Date Type Department Care Team (Late st Contact Info) Description 09/23/2024 Telephone [facility] [address] [place] [address] Lluvia Ortiz RMA Social History Tobacco Use Types Packs/Day Years [...] of Transportation (Non-Medical) Not on file 12/14/2020 [place] Depression Scale Answer Date Recorded [place] Depression Scale Total 22 01/24/2023 The thought [...] encounter Miscellaneous Notes * Telephone Encounter - JOSE Mcfarland - 09/23/2024 11:59 AM EDT Patient called and stated she had a 2 yrs in November. Today she ca;lled with complaint of tenderness in her scar. No warmth or fever just tender. She has annual in october.Can you you please call her? [phone] * Telephone Encounter - FABY Chung - 09/23/2024 11:59 AM EDT Can you try calling her. I left a message to call us. She is supposed to repeat a pelvic us for an ovarian cyst- she should repeat that. I do not suspect skin infection if not red or fever. If she is having localized pain, fever, vomiting, any concern that would warrant ER eval, then I recommend she is seen, knowing she has an ovarian cyst and to rule out torsion of her ovary. She should surely follow up in the office after her ultrasound as well. FABY CHUNG * Telephone Encounter - JOSE Mcfarland - 09/23/2024 11:59 AM EDT Patient notified and will schedule her US documented in this encounter Plan of Treatment Upcoming Encounters Date Type Department Care Team (Late st Contact Info) Description 02/26/2025 3:00 PM EDT Hospital Encounter [facility] - Ultrasound [address] [place] [phone] documented as of this encounter Visit Diagnoses Not on filedocumented in this encounter Additional Health Concerns Assessment Noted Time PHQ-9 Depression Total Score: 12 06/24/2 024 3:54 PM EST A Body Mass Index follow-up plan has been documented for the patient 04/15/2021 1:40 PM EDT documented as of this encounter Care Teams Unloader Operator Relationship Specialty Start Date End Date Alycia Patterson APRN-ALEAXNDRE [address] [facility], [place] [phone] PCP - General Family Medicine 05/12/24 documented as of this encounter
--- OUTSIDE RECORDS SUMMARY | 2025-02-26 09:22 | XMS_ITS | Clinical Summary ---
Author Organization [facility] Address [address] [place] [place] [address] Phone Care Team Providers Care Memorandum Statement Clerk Name Role Phone Maria Teresa Trinidad MD Primary Care Provid er Social History Tobacco Use Types Packs/Day Years Used Date Smoking Tobacco: Never Assessed Comments Unknown Sex and Gender Information Value Date Recorded Sex Assigned at Not on file Legal Sex Female 8:53 AM EST Gender Identity Not on file Sexual Orientation Not on file Plan of Treatment Not on file Care Teams Memorandum Statement Clerk Relationship Specialty Start Date End Date Maria Teresa Trinidad MD PCP - General 10/23/15
--- OUTSIDE RECORDS SUMMARY | 2025-02-26 09:22 | XMS_ITS | Encounter Summary ---
Author Organization [employer] tem Address [facility] [place][id number] [address] [place] [address] Care Team Providers Care Sales Coordinator Name Role Phone Alycia Patterson LIBRARY CIRCULATION TECHNICIAN-RESIDENTIAL CARE FACILITY MANAGER Primary Care Provider Encounter Details Date Type Department Care Team (Late st Contact Info) Description 02/04/2025 Results Follow-Up [facility] [address] [place] [phone] Mecca Camara, LIBRARY CIRCULATION TECHNICIAN-RESIDENTIAL CARE FACILITY MANAGER [address] [place] [address] POCT , urine Social History Tobacco Use Types Packs/Day Years [...] of Transportation (Non-Medical) Not on file 12/14/2020 [place] Depression Scale Answer Date Recorded [place] Depression Scale Total 22 01/24/2023 The thought [...] on file documented as of this encounter Plan of Treatment Upcoming Encounters Date Type Department Care Team (Late st Contact Info) Description 02/26/2025 3:00 PM EDT Hospital Encounter [facility] - Ultrasound [address] [place] [phone] documented as of this encounter Visit Diagnoses Not on filedocumented in this encounter Additional Health Concerns Assessment Noted Time PHQ-9 Depression Total Score: 12 06/24/ 024 3:54 PM EST A Body Mass Index follow-up plan has been documented for the patient 04/15/2021 1:40 PM EDT documented as of this encounter Care Teams Sales Coordinator Relationship Specialty Start Date End Date Alycia Patterson, LIBRARY CIRCULATION TECHNICIAN-RESIDENTIAL CARE FACILITY MANAGER [address] [facility], [place] [address] PCP - General Family Medicine 05/12/24 documented as of this encounter
--- OUTSIDE RECORDS SUMMARY | 2025-02-26 09:22 | XMS_ITS | Encounter Summary ---
Author Organization [email or web address] [facility] tem Address [facility] [place][id number] [address] [place] [address] Care Team Providers Care Research Professional Name Role Phone Alycia Patterson TEXTILE CONVERTER-SUPERVISOR BORDER DEPARTMENT Primary Care Provider Encounter Details Date Type Department Care Team (Late st Contact Info) Description 12/08/2020 Telephone [facility] Ob[facility]etrics[facility]Gynecology [address] [place] [phone] Juana Russell MA Social History Tobacco Use Types Packs/Day Years [...] care, and heating? Not hard at all 11/06/2020 PHQ-2 Answer Date Recorded Total Score 0 11/06/2020 Childcare Answer Date Recorded Do problems getting child ca re make it difficult for you to work or study? No 11/06/2020 Employment Answer Date Recorded Employment Unknown 12/05/2018 [...] have Coronavirus / COVID-19? No / Unsure 12/11/2020 9:49 AM EDT documented as of this encounter Miscellaneous Notes * Telephone Encounter - Juana Russell MA - 12/08/2020 1:52 PM EDT Patient called stating she has not felt baby move since yesterday morning. Patient has tried layingon both sides, and has ate and had liquid today. Patient advised to be seen in L&D. Patient agreed documented in this encounter Plan of Treatment Upcoming Encounters Date Type Department Care Team (Late st Contact Info) Description 02/26/2025 3:00 PM EDT Hospital Encounter [facility] - Ultrasound [address] [place] [address] documented as of this encounter Visit Diagnoses Not on filedocumented in this encounter Additional Health Concerns Assessment Noted Time PHQ-9 Depression Total Score: 0 11/07/19 21 10:11 AM EDT documented as of this encounter Care Teams Research Professional Relationship Specialty Start Date End Date Alycia Patterson APRN-ALEXANDRE [address] [place] [phone] PCP - General Family Medicine 05/12/24 documented as of this encounter
--- OUTSIDE RECORDS SUMMARY | 2025-02-26 09:22 | XMS_ITS | Encounter Summary ---
Author Organization [employer] [facility] tem Address [facility] [id number] [address] [place] [address] Care Team Providers Care Poll Clerk Name Role Phone Alycia Patterson Rubens TAPE STRINGER-TILE POWER SHEAR OPERATOR Primary Care Provider Encounter Details Date Type Department Care Team (Late st Contact Info) Description 05/28/2024 Telephone [facility] Obstetrics/Gynecology [address] [place] [phone] Tierra Shelton, HIGINIO Social History Tobacco Use Types Packs/Day Years [...] 01/24/2023 PHQ-2 Answer Date Recorded Total Score 3 01/24/2023 PRAPARE - Transportation Answer Date Re corded In the past 12 months, has l ack of transportation kept you from medical appointments or from getting medications? No 12/14/2020 Lack of Transportation (Non-Medical) Not on file 12/14/2020 [place] Depression Scale Answer Date Recorded [place] Depression Scale Total 22 01/24/2023 The thought [...] got money to buy more. Never True 05/28/2024 Within the past 12 months th e food we bought just didn't last and we didn't have money to get more. Never True 05/28/2024 Purpose - Life Answer Date Recorded Purpose [...] Description 02/26/2025 3:00 PM EDT Hospital Encounter [facility] - Ultrasound [address] [place] [address] documented as of this encounter Visit Diagnoses Not on filedocumented in this encounter Additional Health Concerns Assessment Noted Time PHQ-9 Depression Total Score: 3 01/25/20 23 8:31 AM EDT A Body Mass Index follow-up plan has been documented for the patient 04/15/2021 1:40 PM EDT documented as of this encounter Care Teams Poll Clerk Relationship Specialty Start Date End Date Alycia Patterson, TAPE STRINGER-TILE POWER SHEAR OPERATOR [address] [facility], [place] [phone] PCP - General Family Medicine 05/12/24 documented as of this encounter
--- OUTSIDE RECORDS SUMMARY | 2025-02-26 09:22 | XMS_ITS | Encounter Summary ---
Author Organization [facility] Address [id number] [address] [place] [address] Care Team Providers Care Byproducts Maker Name Role Phone Alycia Patterson Rubens TELEPHONE SALES REPRESENTATIVE-FASHION ADVISER Primary Care Provider Reason for Visit * Reason Comments Med Refill Encounter Details Date Type Department Care Team (Late st Contact Info) Description 06/04/2023 Refill [facility] Obstetrics/Gynecology [address] [place] [phone] Michelle Romero, TELEPHONE SALES REPRESENTATIVE-[facility] [address] [facility] [place], [place] [phone] depression Social History Tobacco Use Types Packs/Day Years [...] of Transportation (Non-Medical) Not on file 12/14/2020 [place] Depression Scale Answer Date Recorded [place] Depression Scale Total 22 01/24/2023 The thought [...] got money to buy more. Never True 05/23/2023 Within the past 12 months th e food we bought just didn't last and we didn't have money to get more. Never True 05/23/2023 Purpose - Life Answer Date Recorded Purpose [...] encounter Miscellaneous Notes * Telephone Encounter - Robyn Castillo - 06/04/2023 6:55 AM EST LVM to call Office. * Telephone Encounter - Robyn Castillo - 06/04/2023 6:55 AM EST Pt states she is still taking the Paxil. Pt has Med Follow Up appointment on . Please sendrefill. Thank you documented in this encounter Plan of Treatment Upcoming Encounters Date Type Department Care Team (Late st Contact Info) Description 02/26/2025 3:00 PM EDT Hospital Encounter [facility] - Ultrasound [address] [place] [address] documented as of this encounter Visit Diagnoses Diagnosis depression Mental disorders of mother, complicating , childbirth, or the puerperium, unspecified as to episode of care documented in this encounter Additional Health Concerns Assessment Noted Time PHQ-9 Depression Total Score: 3 01/25/20 23 8:31 AM EDT A Body Mass Index follow-up plan has been documented for the patient 04/15/2021 1:40 PM EDT documented as of this encounter Care Teams Byproducts Maker Relationship Specialty Start Date End Date Alycia Patterson, BALA-FASHION ADVISER [address] [facility], [place] [address] PCP - General Family Medicine 05/12/24 documented as of this encounter
--- OUTSIDE RECORDS SUMMARY | 2025-02-26 09:22 | XMS_ITS | Clinical Summary ---
Author Organization [facility] Address [address], [address] [place] [address] Care Team Providers Care Talent Sourcing Specialist Name Role Phone Maria Teresa Trinidad MD Primary Care Provider + Allergies Active Allergy Reactions Criticality Noted Date Comments Codeine 04/30/2014 Penicillins 08/24/2018 Yeast infection Medications minocycline (MINOCIN;DYNACIN) 100 MG capsule Take 100 mg by mouth 2 times daily. Active PARoxetine (PAXIL) 20 MG tablet Take 20 mg by mouth every morning Active ondansetron (ZOFRAN ODT) 4 MG disintegrating tablet Take 1 tablet by mouth every 8 hours as needed for Nausea or Vomiting 20 tablet 9 Active Active Problems Problem Noted Date Diagnosed Date Menorrhagia 04/30/2014 Disorder of menstrual bleeding 04/30/2014 Bleeding disorder 04/30/2014 Family history of bleeding disorder 04/30/2014 Thrombocytopathy 04/30/2014 S/P T&A (status post tonsillectomy and adenoidec krysta) 04/03/2013 Social History Tobacco Use Types Packs/Day Years Used Date Smoking Tobacco: Passive Smo ke Exposure - Never Smoker Smokeless Tobacco: Never Alcohol Use Standard Drinks/Week Comments No 0 (1 standard drink = 0.6 oz pur e alcohol) Comments No Sex and Gender Information Value Date Recorded Sex Assigned at Not on file Legal Sex Female 11:36 AM EST Gender Identity Not on file Sexual Orientation Not on file Last Filed Vital Signs Vital Sign Reading Time Taken Comments Blood Pressure 141/81 08/24/2018 10:21 PM EST Pulse 100 08/24/2018 10:21 PM EST Temperature 37.7 C (99.8 F) 08/24/2018 10:21 PM EST Respiratory Rate 16 08/24/2018 10:21 PM EST Oxygen Saturation 99% 08/24/2018 10:21 PM EST Inhaled Oxygen Concentration - - Weight 83.9 kg (185 lb) 08/24/2018 8:01 PM EST Height 165.1 cm (5' 5 ) 08/24/2018 8:01 PM EST Body Mass Index 30.79 08/24/2018 8:01 PM EST Plan of Treatment Upcoming Encounters Date Type Department Care Team (Late st Contact Info) Description 05/14/2025 1:15 PM EST Office Visit [facility] Dermatology [address] [place] [address] Eulalio Hdz PA-C [address] [place] [address] [employer]S AND HUMANITIES COUNCIL DIRECTOR / spot of face Health Maintenance Due Date Last Done Comments Varicella vaccine (2 of 2 - 2-dose childhood series) 2001 03/29/1999 Depression Screen 2009 HIV screen 2012 Hepatitis C screen 2015 Pap smear 2018 COVID-19 Vaccine ( season) 2024 03/03/2021, 02/03/2021 Flu vaccine (#1) 01/24/2025 03/18/2018, 05/2015, 06/13/2003 DTaP/Tdap/Td vaccine (8 - Td or Tdap) 11/15/2032 11/15/2022, 11/06/2020, 12/28/2010, Additional history exists Hepatitis B vaccine Completed 1997, 1997, 1997 Hib vaccine Aged Out 1997, 09/1997, 1997 No longer eligible based on patient's age to complete this topic Polio vaccine Completed 11/21/2001, 09/1997, 1997, Additional history exists HPV vaccine (No Doses Required) Completed Hepatitis A vaccine Aged Out No longe r eligible based on patient's age to complete this topic Meningococcal (ACWY) vaccine Aged Out No longer eligible based on patient's age to complete this topic Meningococcal B vaccine Aged Out No l onger eligible based on patient's age to complete this topic Pneumococcal 0-49 years Vaccine Aged Out No longer eligible based on patient's age to complete this topic Insurance [place] [facility] [place] Care Teams Talent Sourcing Specialist Relationship Specialty Start Date End Date Maria Teresa Trinidad MD PCP - General Pediatrics 04/08/14
--- OUTSIDE RECORDS SUMMARY | 2025-02-26 09:23 | XMS_ITS | Encounter Summary ---
Author Organization [employer] tem Address [id number] [address] [place] [address] Care Team Providers Care Manager Engine Name Role Phone Alycia Patterson Rubens COONEYN-STRATEGIC MARKETING ASSOCIATE Primary Care Provider Encounter Details Date Type Department Care Team (Late st Contact Info) Description 12/02/2022 Telephone [facility] - Women's Services [address] [place] [phone] Stormy Cuadra MD [address] [place] [phone] Social History Tobacco Use Types Packs/Day Years [...] of Transportation (Non-Medical) Not on file 12/14/2020 [place] Depression Scale Answer Date Recorded [place] Depression Scale Total 5 02/24/2021 The thought [...] encounter Miscellaneous Notes * Telephone Encounter - Stormy Cuadra MD - 12/02/2022 1:38 PM EDT Please call [facility] hematology lab--patient has a platelet electron microscopy test from 11/23/22 that is pending in the system. Do they have results available? Thank you * Telephone Encounter - Merary Barros RN - 12/02/2022 1:38 PM EDT Per lab they will fax results. documented in this encounter Plan of Treatment Upcoming Encounters Date Type Department Care Team (Late st Contact Info) Description 02/26/2025 3:00 PM EDT Hospital Encounter [facility] - Ultrasound [address] [place] [address] documented as of this encounter Visit Diagnoses Not on filedocumented in this encounter Additional Health Concerns Assessment Noted Time PHQ-9 Depression Total Score: 0 11/23/19 3:58 PM EDT A Body Mass Index follow-up plan has been documented for the patient 04/15/2021 1:40 PM EDT documented as of this encounter Care Teams Manager Engine Relationship Specialty Start Date End Date Alycia Patterson, PEDIATRIC PHYSICAL THERAPY ASSISTANT-STRATEGIC MARKETING ASSOCIATE [address] [place] [address] PCP - General Family Medicine 05/12/24 documented as of this encounter
--- OUTSIDE RECORDS SUMMARY | 2025-02-26 09:23 | XMS_ITS | Encounter Summary ---
Author Organization [employer] tem Address [facility] [id number] [address] [place] [address] Care Team Providers Care Rivet Tester Name Role Phone Alycia Patterson CRACKING AND FANNING MACHINE OPERATOR-WORKFORCE DEVELOPMENT VICE PRESIDENT Primary Care Provider Encounter Details Date Type Department Care Team (Late st Contact Info) Description 08/28/2020 Telephone [facility] Obstetrics/Gynecology [address] [place] [phone] Juana Russell MA Social History Tobacco Use Types Packs/Day Years Used Date Smoking Tobacco: Never Smokeless Tobacco: Never Alcohol Use Standard Drinks/Week Comments Not Currently 0 (1 standard drink = 0.6 oz pur e alcohol) socially Childcare Answer Date Recorded Childcare Unknown 12/05/2018 Employment Answer Date Recorded Employment Unknown 12/05/2018 Purpose - Life Answer Date Recorded Purpose and direction in life Unknown Comments Yes Sex and Gender Information Value Date Recorded Sex Assigned at Not on file Legal Sex Female 11:20 PM EDT Gender Identity Not on file Sexual Orientation Not on file COVID-19 Exposure Response Date Recorded In the last month, have you been in contact with someone who was confirmed or suspected to have Coronavirus / COVID-19? No / Unsure 08/27/2020 1:03 PM EST documented as of this encounter Miscellaneous Notes * Telephone Encounter - Juana Russell MA - 08/28/2020 8:17 AM EST Patient called and would results of vaginitis testing yesterday . Patient stated she is very uncomfortable and would like something. Please advise Juana Russell MA 08/28/20 08 * Telephone Encounter - FABY Ingram - 08/28/2020 8:17 AM EST + yeast. Rx for miconazole 100 mg vaginal suppositories nightly for 7 days sent to [facility] in [place]. Please let her know. Gonorrhea / chlamydia culture is still pending. * Telephone Encounter - Juana Russell MA - 08/28/2020 8:17 AM EST Results given to patient. Patient verbally understood. documented in this encounter Plan of Treatment Upcoming Encounters Date Type Department Care Team (Late st Contact Info) Description 02/26/2025 3:00 PM EDT Hospital Encounter [facility] - Ultrasound [address] [place] [phone] documented as of this encounter Visit Diagnoses Not on filedocumented in this encounter Care Teams Rivet Tester Relationship Specialty Start Date End Date Alycia Patterson APRN-ALEXANDRE [address] [facility], [place] [address] PCP - General Family Medicine 05/12/24 documented as of this encounter
--- OUTSIDE RECORDS SUMMARY | 2025-02-26 09:23 | XMS_ITS | Encounter Summary ---
Author Organization [facility] [employer] [facility] tem Address [facility] [id number] [address] [place] [address] Care Team Providers Care Lyric Writer Name Role Phone Alycia Patterson OPERATIONS MANAGER/COORDINATOR-EMPLOYMENT COUNSELOR Primary Care Provider Encounter Details Date Type Department Care Team ([facility] Contact Info) Description 04/29/2020 Documentation [facility] [address] [place] [address] Leah Bernabe MD [address] [place] [address] Social History Tobacco Use Types Packs/Day Years Used Date Smoking Tobacco: Never Smokeless Tobacco: Never Alcohol Use Standard Drinks/Week Comments Yes 0 (1 standard drink = 0.6 oz pur e alcohol) socially Childcare Answer Date Recorded Childcare Unknown 12/05/2018 Employment Answer Date Recorded Employment Unknown 12/05/2018 Comments No Sex and Gender Information Value Date Recorded Sex Assigned at Not on file Legal Sex Female 11:20 PM EDT Gender Identity Not on file Sexual Orientation Not on file COVID-19 Exposure Response Date Recorded In the last month, have you been in contact with someone who was confirmed or suspected to have Coronavirus / COVID-19? No / Unsure 04/28/2020 10:19 AM EST documented as of this encounter Plan of Treatment Upcoming Encounters Date Type Department Care Team ([facility] Contact Info) Description 02/26/2025 3:00 PM EDT Hospital Encounter [facility] - Ultrasound [address] [place] [phone] documented as of this encounter Visit Diagnoses Not on filedocumented in this encounter Care Teams Lyric Writer Relationship Specialty Start Date End Date Alycia Patterson, BALA-ALEXANDRE [address] [place] [address] PCP - General Family Medicine 05/12/24 documented as of this encounter
--- OUTSIDE RECORDS SUMMARY | 2025-02-26 09:23 | XMS_ITS | Clinical Summary ---
Author Organization [facility] Address [address] [place] [address] Care Team Providers Care Traveling Passenger Agent Name Role Phone Phys, Self-Refer Or No Pcp/Referring Primary Car e Provider Unavailable Social History Tobacco Use Types Packs/Day Years Used Date Smoking Tobacco: Never Assessed Comments Unknown Sex and Gender Information Value Date Recorded Sex Assigned at Not on file Legal Sex Female 1:26 PM EDT Gender Identity Not on file Sexual Orientation Not on file Plan of Treatment Health Maintenance Due Date Last Done Comments Hepatitis C Screening 1997 DTaP,Tdap,and Td Vaccines (1 - Tdap) 2016 Hepatitis B Vaccine ages 19 years and older (1 of 3 - 19+ 3-dose series) 2016 Cervical Cancer Screening: Cytology 2018 COVID-19 Vaccine (2023-2 5 season) 2024 Influenza Vaccine (#1) 2025 Respiratory Syncytial Virus (RSV) or ages 60 years and older (1 - 1-dose 75+ series) 2072 Pneumococcal Combined Aged Out No skylar vilma eligible based on patient's age to complete this topic Respiratory Syncytial Virus (RSV) ages 0 thru 19 months Aged Out No longer eligible based on patient's age to complete this topic Care Teams Traveling Passenger Agent Relationship Specialty Start Date End Date Phys, Self-Refer Or No Pcp/Referring PCP - General 04/12/19
--- OUTSIDE RECORDS SUMMARY | 2025-02-26 09:23 | XMS_ITS | Encounter Summary ---
Author Organization [employer] [facility] tem Address [facility] [place]-[id number] [address] [place] [address] Care Team Providers Care Stock Checkerer Name Role Phone Alycia Patterson Rubens ENVIRONMENTAL SERVICES ASSOCIATE-FORENSIC DNA ANALYST Primary Care Provider Encounter Details Date Type Department Care Team (Late st Contact Info) Description 05/03/2021 Telephone [facility] Obstetrics[facility]ne[facility] [address] [place] [phone] Juana Russell MA Social History Tobacco Use [...] of Transportation (Non-Medical) Not on file 12/14/2020 [place] Depression Scale Answer Date Recorded [place] Depression Scale Total 5 02/24/2021 The thought [...] have Coronavirus / COVID-19? No / Unsure 04/13/2021 3:27 PM EDT documented as of this encounter Miscellaneous Notes * Telephone Encounter - Juana Russell MA - 05/03/2021 3:02 PM EST Patient called and asked if she could get squeezed in today due to BP 150/90. Spoke with Michelle regarding dates and looking at past note. Patient was suppose to follow up with PCP for Chronic Hypertension according to notes. When I spoke with patient she stated her WILDLIFE REFUGE MANAGER couldn't prescribe meds. I asked who it was and she stated she hasn't been to the office in a while as she switched PCP's. I advised she needed to call her PCP to get an appt and if she had any symptoms of headaches. She stated she had a slight headache but thought it was due to lack of sleep. Pt is to let us know if she could not get into PCP. documented in this encounter Plan of Treatment Upcoming Encounters Date Type Department Care Team (Late st Contact Info) Description 02/26/2025 3:00 PM EDT Hospital Encounter [facility] - Ultrasound [address] [place] [address] documented as of this encounter Visit Diagnoses Not on filedocumented in this encounter Additional Health Concerns Assessment Noted Time PHQ-9 Depression Total Score: 7 04/13/20 3:43 PM EDT A Body Mass Index follow-up plan has been documented for the patient 04/15/2021 1:40 PM EDT documented as of this encounter Care Teams Stock Checkerer Relationship Specialty Start Date End Date Alycia Patterson, ENVIRONMENTAL SERVICES ASSOCIATE-FORENSIC DNA ANALYST [address] [place] [phone] PCP - General Family Medicine 05/12/24 documented as of this encounter
--- OUTSIDE RECORDS SUMMARY | 2025-02-26 09:23 | XMS_ITS | Encounter Summary ---
Author Organization [employer] [facility] tem Address [place]-[id number] [address] [place] [address] Care Team Providers Care Religious Healer Name Role Phone Alycia Patterson SOUND RANGING CREWMEMBER-INSIDE ACCOUNT EXECUTIVE Primary Care Provider Encounter Details Date Type Department Care Team (Late st Contact Info) Description 09/23/2020 [facility] [address] [place] [address] Juana Russell MA Social History Tobacco Use [...] have Coronavirus / COVID-19? No / Unsure 09/24/2020 10:51 AM EDT documented as of this encounter Miscellaneous Notes * Telephone Encounter - Juana Russell MA - 09/23/2020 1:37 PM EDT Patient called with concerns of Rx Amoxicillin that was prescribed yesterday. States it makes patient nauseated and patient ends up with a yeast infection. Would like to know if something else is being prescribed? Patient was seen in Urgent Care yesterday for Strep throat but was not swabbed and given no medication. Please advise Thanks Juana Russell MA 09/23/20 1340 * Telephone Encounter - FABY Ingram - 09/23/2020 1:37 PM EDT Per Luh's note yesterday: I called [employer] back and gave them an Rx for Diflucan to be used in conjunction with the Amoxicillin to help prevent the yeast . * Telephone Encounter - Juana Russell MA - 09/23/2020 1:37 PM EDT Spoke with patient and let her know we would also send over a prescription for nausea due to patient starting amoxicillin makes her feel nauseous. Patient ok'd and will pick Rx up with amox and diflucan . documented in this encounter Plan of Treatment Upcoming Encounters Date Type Department Care Team (Late st Contact Info) Description 02/26/2025 3:00 PM EDT Hospital Encounter [facility] - Ultrasound [address] [place] [address] documented as of this encounter Visit Diagnoses Not on filedocumented in this encounter Care Teams Religious Healer Relationship Specialty Start Date End Date Alycia Patterson APRN-CNP [address] [facility], [place] [address] PCP - General Family Medicine 05/12/24 documented as of this encounter
--- OUTSIDE RECORDS SUMMARY | 2025-02-26 09:23 | XMS_ITS | Encounter Summary ---
Author Organization [employer] tem Address [facility] [place]-[id number] [address] 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 Never True 06/12/2024 Within the past 12 months th e food we bought just didn't last and we didn't have money to get more. 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
--- OUTSIDE RECORDS SUMMARY | 2025-02-26 09:23 | XMS_ITS | Encounter Summary ---
Author Organization [facility] [employer] [facility] tem Address [facility] [place]-[id number] [address] [place] [address] Care Team Providers Care Press Tender Smoke Signal Name Role Phone Alycia Patterson COPPER ROLLER HANDLER PRINTING-SOCIOLOGY TEACHER Primary Care Provider Encounter Details Date Type Department Care Team ([facility] Contact Info) Description 05/12/2020 Telephone [facility] Ob[facility]Gynecology [address] [place] [address] Juana Russell MA Social History Tobacco Use [...] have Coronavirus / COVID-19? No / Unsure 05/12/2020 12:52 PM EST documented as of this encounter Plan of Treatment Upcoming Encounters Date Type Department Care Team ([facility] Contact Info) Description 02/26/2025 3:00 PM EDT Hospital Encounter [facility] - Ultrasound [address] [facility] [address] documented as of this encounter Visit Diagnoses Not on filedocumented in this encounter Care Teams Press Tender Smoke Signal Relationship Specialty Start Date End Date Alycia Patterson, COPPER ROLLER HANDLER PRINTING-SOCIOLOGY TEACHER [address] [place] [address] PCP - General Family Medicine 05/12/24 documented as of this encounter
--- OUTSIDE RECORDS SUMMARY | 2025-02-26 09:23 | XMS_ITS | Encounter Summary ---
Author Organization [employer] tem Address [facility] [place]-[id number] [address] [place] [address] Care Team Providers Care Communication Equipment Mechanic Name Role Phone Alycia Patterson Rubens ELECTRONIC TECHNOLOGIST-INFECTIOUS DISEASE TECHNICIAN Primary Care Provider Encounter Details Date Type Department Care Team (Late st Contact Info) Description 11/16/2022 Telephone [facility] - Women's Services [address] [place] [phone] Sarah Cruz RN Social History Tobacco Use [...] of Transportation (Non-Medical) Not on file 12/14/2020 [place] Depression Scale Answer Date Recorded [place] Depression Scale Total 5 02/24/2021 The thought [...] Telephone Encounter - Sarah Cruz RN - 11/16/2022 11:55 AM EDT Attempted to contact patient to let her know that her c/s is scheduled for 12/23/22 at 10 AM. Will provide soap, letter, and drink next visit. * Telephone Encounter - Merary Barros RN - 11/16/2022 11:55 AM EDT Pt reached and informed of C/S date and time documented in this encounter Plan of Treatment Upcoming Encounters Date Type Department Care Team (Late st Contact Info) Description 02/26/2025 3:00 PM EDT Hospital Encounter [facility] - Ultrasound [address] [place] [address] documented as of this encounter Visit Diagnoses Not on filedocumented in this encounter Additional Health Concerns Assessment Noted Time PHQ-9 Depression Total Score: 7 04/13/20 3:43 PM EDT A Body Mass Index follow-up plan has been documented for the patient 04/15/2021 1:40 PM EDT documented as of this encounter Care Teams Communication Equipment Mechanic Relationship Specialty Start Date End Date Alycia Patterson, BALA-INFECTIOUS DISEASE TECHNICIAN [address] [facility] [place] [address] PCP - General Family Medicine 05/12/24 documented as of this encounter
--- OUTSIDE RECORDS SUMMARY | 2025-02-26 09:23 | XMS_ITS | Encounter Summary ---
Author Organization [facility] tem Address [facility] [place]-[id number] [address] [place] [address] Care Team Providers Care Oss Architect Name Role Phone Alycia Patterson Rubens VISUAL MERCHANDISING ASSISTANT-PLATING DEPARTMENT HELPER Primary Care Provider Encounter Details Date Type Department Care Team (Late st Contact Info) Description 10/28/2020 Telephone [facility] Obstetrics/Gynecology [address] [place] [phone] Michelle Romero, VISUAL MERCHANDISING ASSISTANT-CN [address] [facility] [place], [place] [id number] Social History Tobacco Use Types Packs/Day Years Used Date Smoking Tobacco: Never Smokeless Tobacco: Never Alcohol Use Standard Drinks/Week Comments Not Currently 0 (1 standard drink = 0.6 oz pur e alcohol) socially PHQ-2 Answer Date Recorded Total Score 0 09/30/2020 Childcare Answer Date Recorded Childcare Unknown 12/05/2018 [...] have Coronavirus / COVID-19? No / Unsure 10/23/2020 8:37 AM EDT documented as of this encounter Miscellaneous Notes * Telephone Encounter - Ainsley Peterson MA - 10/28/2020 1:55 PM EDT Please handwrite a breast pump prescription for patient. She will pick it up in the [place] office on . * Telephone Encounter - Melly Guajardo LPN - 10/28/2020 1:55 PM EDT Order placed. documented in this encounter Plan of Treatment Upcoming Encounters Date Type Department Care Team (Late st Contact Info) Description 02/26/2025 3:00 PM EDT Hospital Encounter [facility] - Ultrasound [address] [place] [address] documented as of this encounter Visit Diagnoses Not on filedocumented in this encounter Additional Health Concerns Assessment Noted Time PHQ-9 Depression Total Score: 0 10/01/19 21 8:25 AM EDT documented as of this encounter Care Teams Oss Architect Relationship Specialty Start Date End Date Alycia Patterson APRN-ALEXANDRE [address] [place] [phone] PCP - General Family Medicine 05/12/24 documented as of this encounter
--- OUTSIDE RECORDS SUMMARY | 2025-02-26 09:23 | XMS_ITS | Encounter Summary ---
Author Organization [facility] tem Address [facility] [id number] [address] [place] [address] Care Team Providers Care Stone Lathe Operator Name Role Phone Alycia Patterson PRIMARY HEALTH CARE NURSE-PERFORMANCE REPORTER Primary Care Provider Encounter Details Date Type Department Care Team ([facility] Contact Info) Description 08/04/2020 Orders Only Maternal- Medicine at [facility] [address] [facility] [place] [phone] Vy Parnell RN Abnormal genetic test during Social History Tobacco Use Types Packs/Day [...] have Coronavirus / COVID-19? No / Unsure 08/04/2020 9:08 AM EST documented as of this encounter Plan of Treatment Upcoming Encounters Date Type Department Care Team (Late Contact Info) Description 02/26/2025 3:00 PM EDT Hospital Encounter [facility] - Ultrasound [address] [place] [address] documented as of this encounter Procedures Procedure Name Priority Date/Time Associated Diagnosis Comments UNLISTED LAB TEST Routine 08/04/2020 Abnormal genetic test during documented in this encounter Results * Unlisted Lab Test(Not for Covid-19 Testing), (08/04/2020) Free Cell Dna see attached report MANUALLY TRANSCRIBED RESULTS 08/04/2020 Domitila Rivera [facility] LAB BLOOD ORDERABLES Final R esult MANUALLY TRANSCRIBED RESULTS documented in this encounter Visit Diagnoses Diagnosis Abnormal genetic test during documented in this encounter Care Teams Stone Lathe Operator Relationship Specialty Start Date End Date Alycia Patterson, PRIMARY HEALTH CARE NURSE-PERFORMANCE REPORTER [address] [place] [phone] PCP - General Family Medicine 05/12/24 documented as of this encounter
--- OUTSIDE RECORDS SUMMARY | 2025-02-26 09:47 | XMS_ITS | CCD ---
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 ([id number]) [address] [place] [address], [address] [place] [address] Ketones Ql (U) Negative Normal NEG [facility] Comment on above: Performed By: #### U A #### [facility] ([id number]) [address] [place] [address], [address] [place] [address] Leukocyte esterase Test strip Ql (U) Negative Normal NEG [facility] Comment on above: Performed By: #### U A #### [facility] ([id number]) [address] [place] [address], [address] [place] [address] MUCOUS PRESENT Abnormal NONE [facility] Comment on above: Performed By: #### U A #### [facility] ([id number]) [address] [place] [address], [address] [place] [address] Nitrite Ql (U) Negative Normal NEG [facility] Comment on above: Performed By: #### U A #### [facility] ([id number]) [address] [place] [address], [address] [place] [address] pH (U) 6.0 [pH] Normal 5.0-8.5 [facility] Comment on above: Performed By: #### U A #### [facility] ([id number]) [address] [place] [address], [address] [place] [address] Protein Ql (U) 30 mg/dL Abnormal NEG [facility] Comment on above: Performed By: #### U A #### [facility] ([id number]) [address] [place] [address], [address] [place] [address] R.B.CELLS 2 /hpf Normal 0-5 [facility] Comment on above: Performed By: #### U A #### [facility] ([id number]) [address], [address] [place] [address] Specific gravity (U) [Rel density] 1.036 High 1.003-1.035 [facility] Comment on above: Performed By: #### U A #### [facility] ([id number]) [address], [address] [place] [address] SQUAMOUS EPITHELIUM 9 /hpf High 0-5 [facility] Comment on above: Performed By: #### U A #### [facility] ([id number]) [address], [address] [place] [address] TURBIDITY CLEAR Normal CLEAR [facility] Comment on above: Performed By: #### U A #### [facility] ([id number]) [address], [address] [place] [address] Urobilinogen (U) [Mass/Vol] mg/dL Normal <1.1 [facility] Comment on above: Performed By: #### U A #### [facility] ([id number]) [address], [address] [place] [address] W.B.CELLS 1 /hpf Normal 0-5 [facility] Comment on above: Performed By: #### U A #### [facility] ([id number]) [address], [address] [place] [address] URINE CULTUREon 06-24-2024 Bacteria identified Cx Nom (U) CULTURE RESULTS >100,000 ORGANISMS/ML NORMAL UROGENITAL PERCY Normal [facility] Comment on above: Performed By: #### 6 30-4 #### [facility] ([id number]) [address] [address] [place] [address] Urinalysison 06-24-2024 Bilirubin Ql (U) Negative Negative^Ne g ative [facility] Color (U) YELLOW YELLOW^YELLO W [facility] Epithelial cells Auto (Urine sed) [#/Area] 9 High [facility] Glucose (U) [Mass/Vol] Negative Negative^Neg ative mg/dL [facility] Hemoglobin Auto test strip Ql (U) Trace Abnormal Negative^Neg ative [facility] Interpretation and review of laboratory results Abnormal [facility] Ketones (U) [Mass/Vol] Negative Negative^Neg ative mg/dL [facility] Leukocyte esterase Auto test strip Ql (U) Negative Negative^Neg ative [facility] Mucus Ql (Urine sed) PRESENT Abnormal NONE^NONE [facility] Nitrite Auto test strip Ql (U) Negative Negative^[facility] pH (U) 6 [pH] 5.0 - 8.5 [facility] Protein (U) [Mass/Vol] 30 mg/dL Abnormal Negative^Neg ative [facility] RBC Auto (Urine sed) [#/Area] 2 [facility] Specific gravity Refractometry automated (U) [Rel density] 1.036 High 1.003 - 1.035 [facility] Turbidity Ql (U) CLEAR CLEAR^CLEAR [facility] Urobilinogen Qn (U) NINF [facility] WBC Auto (Urine sed) [#/Area] 1 [facility] VAGINITIS PANEL PCRon 2023 VAGINITIS PANEL PCR [...] clinical presentation to determine patient diagnosis. Normal [facility] Comment on above: Performed By: #### V PPCR #### [facility] ([id number]) [address] [facility] [address] [place] [address] CBC AND AUTO DIFFon 06-12-20 24 ABSOLUTE BASOPHIL 0.0 X10E9/L Normal 0.0-0.2 [facility] Comment on above: Performed By: #### C BCA, CMP ####[facility] ([id number])[address] [place] [address] ABSOLUTE NEUTROPHIL 8.0 X10E9/L High 1.5-6.6 [facility] Comment on above: Performed By: #### C BCA, CMP ####[facility] ([id number])[address] [place] [address] Basophils/100 WBC (Bld) 0.2 % Normal [facility] Comment on above: Performed By: #### C BCA, CMP ####[facility] ([id number])[address] [place] [address] Eosinophils (Bld) [#/Vol] 0.0 10*3/uL Normal 0.0-0.4 [facility] Comment on above: Performed By: #### C BCA, CMP ####[facility] ([id number])[address] [place] [address] Eosinophils/100 WBC (Bld) 0.3 % Normal [facility] Comment on above: Performed By: #### C BCA, CMP ####[facility] ([id number])[address] [place] [address] Erythrocyte distribution width (RBC) [Ratio] 13.9 % Normal 11.5-15.0 [facility] Comment on above: Performed By: #### C BCA, CMP ####[facility] ([id number])[address] [place] [address] Hematocrit (Bld) [Volume fraction] 42.9 % Normal 35-47 [facility] Comment on above: Performed By: #### C BCA, CMP ####[facility] ([id number])[address] [place] [address] Hemoglobin (Bld) [Mass/Vol] 14.7 g/dL Normal 11.7-15.5 [facility] Comment on above: Performed By: #### C JACQUI, CMP ####[facility] ([id number])[address] [place] [address] Lymphocytes (Bld) [#/Vol] 0.5 10*3/uL Low 1.0-3.5 [facility] Comment on above: Performed By: #### C JACQUI, CMP ####[facility] ([id number])[address] [place] [address] Lymphocytes/100 WBC (Bld) 5.4 % Normal [facility] Comment on above: Performed By: #### C BCA, CMP ####[facility] ([id number])[address] [place] [address] MCH (RBC) [Entitic mass] 29.8 pg Normal 27-34 [facility] Comment on above: Performed By: #### C BCA, CMP ####[facility] ([id number])[address] [place] [address] MCHC (RBC) [Mass/Vol] 34.3 g/dL Normal 32-36 [facility] Comment on above: Performed By: #### C BCA, CMP ####[facility] ([id number])[address] [place] [address] MCV (RBC) [Entitic vol] 87 fL Normal 80-100 [facility] Comment on above: Performed By: #### C JACQUI, CMP ####[facility] ([id number])[address] [place] [address] Monocytes (Bld) [#/Vol] 0.3 10*3/uL Normal 0-0.9 [facility] Comment on above: Performed By: #### C JACQUI, CMP ####[facility] ([id number])[address] [place] [address] Monocytes/100 WBC (Bld) 3.7 % Normal [facility] Comment on above: Performed By: #### C JACQUI, CMP ####[facility] ([id number])[address] [place] [address] Neutrophils/100 WBC (Bld) 90.4 % Normal [facility] Comment on above: Performed By: #### C JACQUI, CMP ####[facility] ([id number])[address] [place] [address] Platelet mean volume (Bld) [Entitic vol] 9.0 fL Normal 7-12 [facility] Comment on above: Performed By: #### C JACQUI, CMP ####[facility] ([id number])[address] [place] [address] Platelets (Bld) [#/Vol] 240 10*3/uL Normal 150-450 [facility] Comment on above: Performed By: #### C JACQUI, CMP ####[facility] ([id number])[address] [place] [address] RBC COUNT 4.94 X10E12/L Normal 3.80-5.20 [facility] Comment on above: Performed By: #### C BCA, CMP ####[facility] ([id number])[address] [place] [address] WBC (Bld) [#/Vol] 8.8 10*3/uL Normal 4.0-11.0 [facility] Comment on above: Performed By: #### C BCA, CMP ####[facility] ([id number])[address] [place] [address] COMPREHENSIVE METABOLIC PANE Anjel 06-12-2024 Albumin [Mass/Vol] 4.8 g/dL Normal 3.2-5.3 [facility] Comment on above: Performed By: #### C BCA, CMP ####[facility] ([id number])[address] [place] [address] ALP [Catalytic activity/Vol] 83 U/L Normal 39-130 [facility] Comment on above: Performed By: #### C BCA, CMP ####[facility] ([id number])[address] [place] [address] ALT [Catalytic activity/Vol] 19 U/L Normal 0-31 [facility] Comment on above: Performed By: #### C BCA, CMP ####[facility] ([id number])[address] [place] [address] Anion gap [Moles/Vol] 11 mmol/L Normal 5-15 [facility] Comment on above: Performed By: #### C BCA, CMP ####[facility] ([id number])[address] [place] [address]70 AST [Catalytic activity/Vol] 15 U/L Normal 0-41 [facility] Comment on above: Performed By: #### C BCA, CMP ####[facility] ([id number])[address] [place] [address] Bilirubin [Mass/Vol] 0.7 mg/dL Normal 0.3-1.2 [facility] Comment on above: Performed By: #### C BCA, CMP ####[facility] ([id number])[address] [place] [address], [place] [address] Calcium [Mass/Vol] 9.1 mg/dL Normal 8.5-10.5 [facility] Comment on above: Performed By: #### C BCA, CMP ####[facility] ([id number])[address] [place] [address] [place] [address] Chloride [Moles/Vol] 104 mmol/L Normal 98-109 [facility] Comment on above: Performed By: #### C BCA, CMP ####[facility] ([id number])[address] [place] [address] 36033 CO2 [Moles/Vol] 23 mmol/L Normal 22-32 [facility] Comment on above: Performed By: #### C BCA, CMP ####[facility] ([id number])[address] [place] [address] [place] [address] Creatinine [Mass/Vol] 0.59 mg/dL Normal 0.40-1.00 [facility] Comment on above: Result Comment: METH OD TRACEABLE TO IDMS STANDARD Performed By: #### C BCA, CMP ####[facility] ([id number])[address] [place] [address] [place] [address] eGFR (CKD-EPI) NON-RACE DEPENDENT >90 Normal >59 [facility] Comment on above: Result Comment: Reported eGFR is based on the CKD-EPI 2021 equation that does not use a race coefficient. Performed By: #### C BCA, CMP ####[facility] ([id number])[address] [place] [address] [place] [address] Glucose [Mass/Vol] 119 mg/dL High 65-99 [facility] Comment on above: Performed By: #### C BCA, CMP ####[facility] ([id number])[address] [place] [address] [place] [address] Potassium [Moles/Vol] 3.8 mmol/L Normal 3.5-5.0 [facility] Comment on above: Performed By: #### C BCA, CMP ####[facility] ([id number])[address] [place] [address] [place] [address] Protein [Mass/Vol] 8.3 g/dL High 6.0-8.0 [facility] Comment on above: Performed By: #### C BCA, CMP ####[facility] ([id number])[address] [place] [address] Sodium [Moles/Vol] 138 mmol/L Normal 134-146 [facility] Comment on above: Performed By: #### C BCA, CMP ####[facility] ([id number])[address] [place] [address] Urea nitrogen [Mass/Vol] 19 mg/dL Normal 5-23 [facility] Comment on above: Performed By: #### C BCA, CMP ####[facility] ([id number])[address] [place] [address] [place] [address] HCG ( test) Ql (U)o n 06-12-2024 Beta HCG ( test) Ql (U) Negative Normal NEG [facility] Comment on above: Performed By: #### 2 106-3 ####[facility] ([id number])[address] [place] [address] [place] [address] URN MACROSCOPIC NURon 2023 BILIRUBIN THALIA Negative Normal NEG [facility] Comment on above: Performed By: #### N UM ####[facility] ([id number])[address] [place] [address] [place] [address] BLOOD/HGB THALIA Trace Abnormal NEG [facility] Comment on above: Performed By: #### N UM ####[facility] ([id number])[address] [place] [address] [place] [address] GLUCOSE THALIA Negative Normal NEG [facility] Comment on above: Performed By: #### N UM ####[facility] ([id number])[address] [place] [address] KETONES THALIA Negative Normal NEG [facility] Comment on above: Performed By: #### N UM ####[facility] ([id number])[address] [place] [address]10 LEUKOCYTE ESTERASE THALIA Negative Normal NEG [facility] Comment on above: Performed By: #### N UM ####[facility] ([id number])[address] [place] [address] NITRITE THALIA Negative Normal NEG [facility] Comment on above: Performed By: #### N UM ####[facility] ([id number])[address] [place] [address] PH THALIA 6.5 Normal 5.0-8.5 [facility] Comment on above: Performed By: #### N UM ####[facility] ([id number])[address] [place] [address] PROTEIN THALIA Trace Abnormal NEG [facility] Comment on above: Performed By: #### N UM ####[facility] ([id number])[address] [place] [address] SPECIFIC GRAVITY THALIA 1.025 Normal 1.003-1.035 [facility] Comment on above: Performed By: #### N UM ####[facility] ([id number])[address] [place] [address]893 UROBILINOGEN THALIA 0.2 eu/dL Normal <1.[address] [facility] Comment on above: Performed By: #### N UM ####[facility] ([id number])[address] [place] [address] COMPLETE BLOOD COUNTon 05-31 Erythrocyte distribution width (RBC) [Ratio] 13.9 % Normal 11.5-15.0 [facility] Comment on above: Performed By: #### C CAROL, THYR #### [facility] ([id number]) [address], [address] [place] [address] Hematocrit (Bld) [Volume fraction] 42.2 % Normal 35-47 [facility] Comment on above: Performed By: #### C CAROL, THYR #### [facility] ([id number]) [address], [address] [place] [address] Hemoglobin (Bld) [Mass/Vol] 14.1 g/dL Normal 11.7-15.5 [facility] Comment on above: Performed By: #### C CAROL, THYR #### [facility] ([id number]) [address], [address] [place] [address] MCH (RBC) [Entitic mass] 29.3 pg Normal 27-34 [facility] Comment on above: Performed By: #### Beronica MEDINA, THYR #### [facility] ([id number]) [address], [address] [place] [address] MCHC (RBC) [Mass/Vol] 33.4 g/dL Normal 32-36 [facility] Comment on above: Performed By: #### C CAROL, THYR #### [facility] ([id number]) [address], [address] [place] [address] MCV (RBC) [Entitic vol] 88 fL Normal 80-100 [facility] Comment on above: Performed By: #### C CAROL, THYR #### [facility] ([id number]) [address], [address] [place] [address] Platelet mean volume (Bld) [Entitic vol] 9.4 fL Normal 7-12 [facility] Comment on above: Performed By: #### C BC, THYR #### [facility] ([id number]) [address], [address] [place] [address] Platelets (Bld) [#/Vol] 238 10*3/uL Normal 150-450 [facility] Comment on above: Performed By: #### C BC, THYR #### [facility] ([id number]) [address], [address] [place] [address] RBC COUNT 4.80 X10E12/L Normal 3.80-5.20 [facility] Comment on above: Performed By: #### C CAROL, THYR #### [facility] ([id number]) [address], [address] [place] [address] WBC (Bld) [#/Vol] 6.3 10*3/uL Normal 4.0-11.0 [facility] Comment on above: Performed By: #### C CAROL, THYR #### [facility] ([id number]) [address], [address] [place] [address] THYROID PROFILEon 05-31-2024 Free T4 [Mass/Vol] 0.77 ng/dL Normal 0.61-1.60 [facility] Comment on above: Result Comment: NEW REFERENCE RANGE FOR PEDIATRIC PATIENTS Performed By: #### C BC, THYR #### [facility] ([id number]) [address], [address] [place] [address] TSH 3.51 uIU/mL Normal 0.49-4.67 [facility] Comment on above: Result Comment: NEW REFERENCE RANGE FOR PEDIATRIC PATIENTS Performed By: #### C CAROL, THYR #### [facility] ([id number]) [address], [address] [place] [address] US PELVIC WITH TRANSVAGINALo n 05-31-2024 US [...] Galo Salgado DO on 05/31/2024 10:40 AM Manny Vaughn MD have personally reviewed the image(s) and agree with and/or edited the report Finalized by Manny Silva MD on 05/31/2024 11:29 AM [facility] XR CHEST 1 VWon 05-12-2024 XR [...] Pawan Tolliver MD on 05/12/2024 12:52 AM Robert Vaughn MD have personally reviewed the image(s) and agree with and/or edited the report Finalized by Robert Holland MD on 05/12/2024 1:05 AM Normal [facility] XR HUMERUS RT MIN 2 VWSon [...] Cortney Arreola MD on 01/07/2024 11:54 PM IMc MD have personally reviewed the image(s) and agree with and/or edited the report Finalized by Mc Nathan MD on 01/08/2024 12:00 AM Normal [facility] BASIC METABOLIC PANLon 12-04 Anion gap [Moles/Vol] 6 mmol/L Normal 5-15 [facility] Comment on above: Performed By: #### C KELBY OSMAN, 46540-3 #### [facility] ([id number]) [address] [place] [address] Calcium [Mass/Vol] 8.8 mg/dL Normal 8.5-10.5 [facility] Comment on above: Performed By: #### C KELBY OSMAN, 23756-2 #### [facility] ([id number]) [address] [place] [address] Chloride [Moles/Vol] 105 mmol/L Normal 98-109 [facility] Comment on above: Performed By: #### C KELBY OSMAN, 34894-3 #### [facility] ([id number]) [address] [place] [address] CO2 [Moles/Vol] 24 mmol/L Normal 22-32 [facility] Comment on above: Performed By: #### C KELBY OSMAN, #### [facility] ([id number]) [address] [place] [address] Creatinine [Mass/Vol] 0.59 mg/dL Normal 0.40-1.00 [facility] Comment on above: Result Comment: METH OD TRACEABLE TO IDMS STANDARD Performed By: #### C KELBY OSMAN, #### [facility] ([id number]) [address] [place] [address] eGFR (CKD-EPI) NON-RACE DEPENDENT >90 Normal >59 [facility] Comment on above: Result Comment: Reported eGFR is based on the CKD-EPI 2020 equation that does not use a race coefficient. Performed By: #### C KELBY OSMAN, #### [facility] ([id number]) [address] [place] [address] Glucose [Mass/Vol] 111 mg/dL High 65-99 [facility] Comment on above: Performed By: #### C JACQUI [facility], #### [facility] ([id number]) [address] [place] [address] Potassium [Moles/Vol] 3.7 mmol/L Normal 3.5-5.0 [facility] Comment on above: Performed By: #### C KELBY OSMAN, #### [facility] ([id number]) [address] [place] [address] Sodium [Moles/Vol] 135 mmol/L Normal 134-146 [facility] Comment on above: Performed By: #### C KELBY OSMAN, #### [facility] ([id number]) [address] [place] [address] [id number] Urea nitrogen [Mass/Vol] 16 mg/dL Normal 5-23 [facility] Comment on above: Performed By: #### C KELBY OSMAN, #### [facility] ([id number]) [address] [place] [address] [id number] CBC AND AUTO DIFFon 12-05-19 24 ABSOLUTE BASOPHIL 0.0 X10E9/L Normal 0.0-0.2 [facility] Comment on above: Performed By: #### Beronica OSMAN [facility], #### [facility] ([id number]) [address] [place] [address] [id number] ABSOLUTE NEUTROPHIL 4.8 X10E9/L Normal 1.5-6.6 [facility] Comment on above: Performed By: #### Beronica OSMAN [facility], #### [facility] ([id number]) [address] [place] [address] [id number] Basophils/100 WBC (Bld) 0.5 % Normal [facility] Comment on above: Performed By: #### Beronica OSMAN [facility], #### [facility] ([id number]) [address] [place] [address] 02722 Eosinophils (Bld) [#/Vol] 0.1 10*3/uL Normal 0.0-0.4 [facility] Comment on above: Performed By: #### Beronica OSMAN [facility], #### [facility] ([id number]) [address] [place] [address] 24301 Eosinophils/100 WBC (Bld) 1.5 % Normal [facility] [facility] Comment on above: Performed By: #### Beronica [facility], #### [facility] ([id number]) [address] [place] [address] [phone] Erythrocyte distribution width (RBC) [Ratio] 13.6 % Normal 11.5-15.0 [facility] Comment on above: Performed By: #### KELBY Loco [facility], #### [facility] ([id number]) [address] [place] [address] 85610 Hematocrit (Bld) [Volume fraction] 39.5 % Normal 35-47 [facility] Comment on above: Performed By: #### C [facility], #### [facility] ([id number]) [address] [place] [address] 99015 Hemoglobin (Bld) [Mass/Vol] 13.2 g/dL Normal 11.7-15.5 [facility] Comment on above: Performed By: #### C [facility], #### [facility] ([id number]) [address] [place] [address] 76240 Lymphocytes (Bld) [#/Vol] 2.3 10*3/uL Normal 1.0-3.5 [facility] Comment on above: Performed By: #### Beronica [facility], #### [facility] ([id number]) [address] [place] [address] 38749 Lymphocytes/100 WBC (Bld) 29.7 % Normal [facility] Comment on above: Performed By: #### Beronica [facility], #### [facility] ([id number]) [address] [place] [address] 41441 MCH (RBC) [Entitic mass] 29.0 pg Normal 27-34 [facility] Comment on above: Performed By: #### Beronica [facility], #### [facility] ([id number]) [address] [place] [address] 92961 MCHC (RBC) [Mass/Vol] 33.4 g/dL Normal 32-36 [facility] Comment on above: Performed By: #### Beronica [facility], #### [facility] ([id number]) [address] [place] [address] 04110 MCV (RBC) [Entitic vol] 87 fL Normal 80-100 [facility] Comment on above: Performed By: #### KELBY Loco [facility], #### [facility] ([id number]) [address] [place] [address] 33379 Monocytes (Bld) [#/Vol] 0.5 10*3/uL Normal 0-0.9 [facility] Comment on above: Performed By: #### KELBY Loco [facility], #### [facility] ([id number]) [address] [place] [address] 65053 Monocytes/100 WBC (Bld) 6.1 % Normal [facility] Comment on above: Performed By: #### KELBY Loco [facility], #### [facility] ([id number]) [address] [place] [address] 93978 Neutrophils/100 WBC (Bld) 62.2 % Normal [facility] Comment on above: Performed By: #### Beronica [facility], #### [facility] ([id number]) [address] [place] [address] 70266 Platelet mean volume (Bld) [Entitic vol] 8.9 fL Normal 7-12 [facility] Comment on above: Performed By: #### KELBY Loco [facility], #### [facility] ([id number]) [address] [place] [address] 24489 Platelets (Bld) [#/Vol] 285 10*3/uL Normal 150-450 [facility] Comment on above: Performed By: #### Beronica OSMAN, KELBY, #### [facility] ([id number]) [address] [place] [address] 04485 RBC COUNT 4.56 X10E12/L Normal 3.80-5.20 [facility] Comment on above: Performed By: #### KELBY Loco [facility], #### [facility] ([id number]) [address] [place] [address] 72391 WBC (Bld) [#/Vol] 7.7 10*3/uL Normal 4.0-11.0 [facility] Comment on above: Performed By: #### C [facility], [id number] #### [facility] ([id number]) [address] [place] [address] 69745 MAGNESIUMon 12-05-2023 Magnesium [Mass/Vol] 2.1 mg/dL Normal 1.8-2.6 [facility] Comment on above: Performed By: #### C [facility], 35775-9 #### [facility] ([id number]) [address] [place] [address] 54443 XR CHEST 2 VWSon 10-30-2023 XR CHEST 2 VWS XR CHEST 2 VWS History: Cough Technique: Frontal and lateral views the chest were obtained. Comparison: 06/27/2023 Findings: There is no evidence for active cardiovascular or pulmonary disease. The heart size is within normal limits and the lung hawthorne are clear. Impression: Normal chest. Finalized by Russell Henry MD on 10/30/2023 1:04 AM Normal [facility] URINALYSISon 10-16-2023 Bilirubin Ql (U) Negative Normal NEG [facility] BLOOD/HGB Negative Normal NEG [facility] Color (U) YELLOW Normal YELLOW [facility] Glucose Ql (U) Negative Normal NEG [facility] Ketones Ql (U) Negative Normal NEG [facility] Leukocyte esterase Test strip Ql (U) Negative Normal NEG [facility] Nitrite Ql (U) Negative Normal NEG [facility] pH (U) 5.5 [pH] Normal 5.0-8.5 [facility] Protein Ql (U) Negative Normal NEG [facility] Specific gravity (U) [Rel density] 1.026 Normal 1.003-1.035 [facility] TURBIDITY CLEAR Normal CLEAR [facility] Urobilinogen (U) [Mass/Vol] mg/dL Normal <1.1 [facility] URINE CULTUREon 10-16-2023 Bacteria identified Cx Nom (U) CULTURE RESULTS 10-50,000 ORGANISMS/mL NORMAL UROGENITAL PERCY Normal [facility] Comment on above: Performed By: #### 6 30-4 #### [facility] ([id number]) [address] [place] [address] Urinalysison 10-16-2023 Bilirubin Ql (U) Negative Negative^Ne g ative [facility] Color (U) YELLOW YELLOW^YELLO W [facility] Glucose (U) [Mass/Vol] Negative Negative^Neg ative mg/dL [facility] Hemoglobin Auto test strip Ql (U) Negative Negative^Neg ative [facility] Ketones (U) [Mass/Vol] Negative Negative^Neg ative mg/dL [facility] Leukocyte esterase Auto test strip Ql (U) Negative Negative^Neg ative [facility] Nitrite Auto test strip Ql (U) Negative Negative^Neg ative [facility] pH (U) 5.5 [pH] 5.0 - 8.5 [facility] Protein (U) [Mass/Vol] Negative Negative^Neg ative mg/dL [facility] Specific gravity Refractometry automated (U) [Rel density] 1.026 1.003 - 1.035 [facility] Turbidity Ql (U) CLEAR CLEAR^CLEAR [facility] Urobilinogen Qn (U) NINF [facility] XR HUMERUS LT MIN 2 VWSon XR [...] Dupree MD on 08/10/2023 7:39 PM Normal [facility] CBC AUTO DIFFon 05-04-2022 BASO # 0.0 103/ul Normal 0.0-0.1 [facility] Comment on above: Performed By: #### T 7, TSH, CMP, PREGQNT #### [facility] [address] [place] [address] Dr. Wilian Santos Basophils/100 WBC (Bld) 0.3 % Normal 0.2-2.0 [facility] Comment on above: Performed By: #### T 7, TSH, CMP, PREGQNT #### [facility] [address] [place] [address] Dr. Wilian Santos EO # 0.1 103/ul Normal 0.0-0.7 [facility] Comment on above: Performed By: #### T 7, TSH, CMP, PREGQNT #### [facility] [address] [place] [address] Dr. Wilian Santos Eosinophils/100 WBC (Bld) 0.9 % Normal 0.9-7.0 [facility] Comment on above: Performed By: #### T 7, TSH, CMP, PREGQNT #### [facility] [address] [place] [address] Dr. Wilian Santos Erythrocyte distribution width (RBC) [Ratio] 14.1 % Normal 11.0-15.0 [facility] Comment on above: Performed By: #### T 7, TSH, CMP, PREGQNT #### [facility] [address] [place] [address] Dr. Wilian Santos Hematocrit (Bld) [Volume fraction] 40.3 % Normal 36.0-48.0 [facility] Comment on above: Performed By: #### T 7, TSH, CMP, PREGQNT #### [facility] [address] [place] [address] Dr. Wilian Santos Hemoglobin (Bld) [Mass/Vol] 12.9 g/dL Normal 12.0-16.0 [facility] Comment on above: Performed By: #### T 7, TSH, CMP, PREGQNT #### [facility] [address] [place] [address] Dr. Wilian Santos IG # 0.04 10e3/ul Critically high 0.00-0.03 [facility] Comment on above: Performed By: #### T 7, TSH, CMP, PREGQNT #### [facility] [address] [place] [address] Dr. Wilian Santos IG % 0.5 % Normal 0.0-0.5 [facility] Comment on above: Performed By: #### T 7, TSH, CMP, PREGQNT #### [facility] [address] [place] [address] Dr. Wilian Santos LYMPH # 1.7 103/ul Normal 1.2-3.8 [facility] Comment on above: Performed By: #### T 7, TSH, CMP, PREGQNT #### [facility] [address] [place] [address] Dr. Wilian Santos Lymphocytes/100 WBC (Bld) 19.3 % Critically low 20.5-60.0 [facility] Comment on above: Performed By: #### T 7, TSH, CMP, PREGQNT #### [facility] [address] [place] [address] Dr. Wilian Santos MANUAL DIFF REQ NO Normal [facility] Comment on above: Performed By: #### T 7, TSH, CMP, PREGQNT #### [facility] [address] [place] [address] Dr. Wilian Santos MCH (RBC) [Entitic mass] 27.7 pg Normal 26.7-34.0 [facility] Comment on above: Performed By: #### T 7, TSH, CMP, PREGQNT #### [facility] [address] [place] [address] Dr. Wilian Santos MCHC (RBC) [Mass/Vol] 32.0 g/dL Normal 29.9-35.2 [facility] Comment on above: Performed By: #### T 7, TSH, CMP, PREGQNT #### [facility] [address] [place] [address] Dr. Wilian Santos MCV (RBC) [Entitic vol] 86.5 fL Normal 81.0-99.0 [facility] Comment on above: Performed By: #### T 7, TSH, CMP, PREGQNT #### [facility] [address] [place] [address] Dr. Wilian Santos MONO # 0.6 103/ul Normal 0.3-0.8 [facility] Comment on above: Performed By: #### T 7, TSH, CMP, PREGQNT #### [facility] [address] [place] [address] Dr. Wilian Santos Monocytes/100 WBC (Bld) 6.3 % Normal 1.7-12.0 [facility] Comment on above: Performed By: #### T 7, TSH, CMP, PREGQNT #### [facility] [address] [place] [address] Dr. Wilian Santos NEUT # 6.3 103/ul Normal 1.4-6.5 [facility] Comment on above: Performed By: #### T 7, TSH, CMP, PREGQNT #### [facility] [address] [place] [address] Dr. Wilian Santos Neutrophils/100 WBC (Bld) 72.7 % Normal 43.0-75.0 [facility] Comment on above: Performed By: #### T 7, TSH, CMP, PREGQNT #### [facility] [address] [place] [address] Dr. Wilian Santos Platelet mean volume (Bld) [Entitic vol] 10.9 fL Normal 9.5-13.5 [facility] Comment on above: Performed By: #### T 7, TSH, CMP, PREGQNT #### [facility] [address] [place] [address] Dr. Wilian Santos PLT 278 103/ul Normal 150-450 [facility] Comment on above: Performed By: #### T 7, TSH, CMP, PREGQNT #### [facility] [address] [address] [address] Wilian Santos RBC 4.66 106/ul Normal 4.20-5.40 [facility] Comment on above: Performed By: #### T 7, TSH, CMP, PREGQNT #### [facility] [address] [place] [address] Dr. Wilian Santos WBC 8.7 103/ul Normal 4.0-11.0 [facility] Comment on above: Performed By: #### T 7, TSH, CMP, PREGQNT #### [facility] [address] [place] [address] Dr. Wilian Santos FREE THYROXINE INDEX T7on FTI 3.37 Normal 1.30-4.50 [facility] Comment on above: Performed By: #### T 7, TSH, CMP, PREGQNT #### [facility] [address] [place] [address] Dr. Wilian Santos T3U 34.0 % Normal 30.0-39.0 [facility] Comment on above: Performed By: #### T 7, TSH, CMP, PREGQNT #### [facility] [address] [place] [address] Dr. Wilian Santos T4 [Mass/Vol] 9.90 ug/dL Normal 4.80-13.90 [facility] Comment on above: Performed By: #### T 7, TSH, CMP, PREGQNT #### [facility] [address] [place] [address] Dr. Wilian Santos GLYCOHEMOGLOBIN A1Con 2021 ADA RECOMMENDATION SEE BELOW Normal [facility] Comment on above: Result Comment: ADA RECOMMENDED LIMIT 4.0 - 6.0 ADA THERAPEUTIC TARGET < 7.0 ACTION SUGGESTED > 7.0 Performed By: #### A 1C #### [facility] [address] [place] [address] Dr. Wilian Santos Glucose [Mass/Vol] 108 mg/dL Normal [facility] Comment on above: Performed By: #### A 1C #### [facility] [address] [place] [address] Dr. Wilian Santos HbA1c (Bld) [Mass fraction] 5.4 % Normal 4.5-6.2 [facility] Comment on above: Performed By: #### A 1C #### [facility] [address] [address] [address] Wilian Santos PREG QUANT HCGon 05-04-2022 HCG QUANT 1387 mIU/mL Normal [facility] Comment on above: Performed By: #### T 7, TSH, CMP, PREGQNT #### [facility] [address] [address] [address] Wilian Santos HCG RANGE SEE BELOW Normal [facility] Comment on above: Result Comment: 5-50 0.2-1 WEEK 50-500 1-2 WEEKS 100-5,000 2-3 WEEKS 500-10,000 3-4 WEEKS 1,000-50,000 4-5 WEEKS 10,000-100,000 5-6 WEEKS 15,000-200,000 6-8 WEEKS 10,000-100,000 2-3 MONTHS Performed By: #### T 7, TSH, CMP, PREGQNT #### [facility] [address] [place] [address] Dr. Wilian Santos PROF 14(COMP METB)on 022 Albumin [Mass/Vol] 4.0 g/dL Normal 3.4-5.0 [facility] Comment on above: Performed By: #### T 7, TSH, CMP, PREGQNT #### [facility] [address] [place] [address] Dr. Wilian Santos Albumin/Globulin [Mass ratio] 1.1 {ratio} Normal [facility] Comment on above: Performed By: #### T 7, TSH, CMP, PREGQNT #### [facility] [address] [address] [address] Wilian Santos ALP [Catalytic activity/Vol] 76 U/L Normal 46-116 [facility] Comment on above: Performed By: #### T 7, TSH, CMP, PREGQNT #### [facility] [address] [address] [address] Wilian Santos ALT [Catalytic activity/Vol] 16 U/L Normal 14-59 [facility] Comment on above: Performed By: #### T 7, TSH, CMP, PREGQNT #### [facility] [address] [address] [address] Wilian Santos Anion gap [Moles/Vol] 8.9 mmol/L Normal [facility] Comment on above: Performed By: #### T 7, TSH, CMP, PREGQNT #### [facility] [address] [address] [address] Wilian Santos AST [Catalytic activity/Vol] 10 U/L Critically low 15-37 [facility] Comment on above: Performed By: #### T 7, TSH, CMP, PREGQNT #### [facility] [address] [place] [address] Dr. Wilian Santos Bilirubin [Mass/Vol] 0.4 mg/dL Normal 0.2-1.0 [facility] Comment on above: Performed By: #### T 7, TSH, CMP, PREGQNT #### [facility] [address] [place] [address] Dr. Wilian Santos Calcium [Mass/Vol] 8.8 mg/dL Normal 8.5-10.1 [facility] Comment on above: Performed By: #### T 7, TSH, CMP, PREGQNT #### [facility] [address] [place] [address] Dr. Wilian Santos Chloride [Moles/Vol] 105 mmol/L Normal 98-107 [facility] Comment on above: Performed By: #### T 7, TSH, CMP, PREGQNT #### [facility] [address] [place] [address] Dr. Wilian Santos CO2 [Moles/Vol] 26.4 mmol/L Normal 21.0-32.0 [facility] Comment on above: Performed By: #### T 7, TSH, CMP, PREGQNT #### [facility] [address] [place] [address] Dr. Wilian Santos Creatinine [Mass/Vol] 0.62 mg/dL Normal 0.55-1.02 [facility] Comment on above: Performed By: #### T 7, TSH, CMP, PREGQNT #### [facility] [address] [address] [address] Wilian Santos EGFR-AF PRYDEINIG >60 Normal >=60 [facility] Comment on above: Performed By: #### T 7, TSH, CMP, PREGQNT #### [facility] [address] [address] [address] Wilian Santos EGFR-NON AF PRYDEINIG >60 Normal >=60 [facility] Comment on above: Performed By: #### T 7, TSH, CMP, PREGQNT #### [facility] [address] [address] [address] Wilian Santos Globulin (S) [Mass/Vol] 3.8 g/dL Normal [facility] Comment on above: Performed By: #### T 7, TSH, CMP, PREGQNT #### [facility] [address] [address] [address] Wilian Santos Glucose [Mass/Vol] 92 mg/dL Normal 74-106 [facility] Comment on above: Performed By: #### T 7, TSH, CMP, PREGQNT #### [facility] [address] [address] [address] Wilian Santos Potassium [Moles/Vol] 3.3 mmol/L Critically low 3.5-5.1 [facility] Comment on above: Performed By: #### T 7, TSH, CMP, PREGQNT #### [facility] [address] [address] [address] Wilian Santos Protein [Mass/Vol] 7.8 g/dL Normal 6.4-8.2 [facility] Comment on above: Performed By: #### T 7, TSH, CMP, PREGQNT #### [facility] [address] [place] [address] Dr. Wilian Santos Sodium [Moles/Vol] 137 mmol/L Normal 136-145 [facility] Comment on above: Performed By: #### T 7, TSH, CMP, PREGQNT #### [facility] [address] [address] [address] Wilian Santos Urea nitrogen [Mass/Vol] 15.0 mg/dL Normal 7.0-18.0 [facility] Comment on above: Performed By: #### T 7, TSH, CMP, PREGQNT #### [facility] [address] [place] [address] Dr. Wilian Santos Urea nitrogen/Creatinine [Mass ratio] 24.2 mg/mg Normal [facility] Comment on above: Performed By: #### T 7, TSH, CMP, PREGQNT #### [facility] [address] [place] [address] Dr. Wilian Santos TSHon 05-04-2022 TSH 2.387 uIU/mL Normal 0.358-3.740 [facility] Comment on above: Performed By: #### T 7, TSH, CMP, PREGQNT #### [facility] [address] [place] [address] Dr. Wilian Santos INSULINon 09-23-2021 Insulin 25.7 uIU/mL Critically high 2.6-24.9 [facility] Comment on above: Performed By: #### I NSULIN #### [facility] [address] [place] [address] Dr. Wilian Santos CBC AUTO DIFFon 09-22-2021 BASO # 0.0 103/ul Normal 0.0-0.1 [facility] Comment on above: Performed By: #### C BC #### [facility] [address] [place] [address] Dr. Wilian Santos Basophils/100 WBC (Bld) 0.3 % Normal 0.2-2.0 [facility] Comment on above: Performed By: #### C BC #### [facility] [address] [place] [address] Dr. Wilian Santso EO # 0.1 103/ul Normal 0.0-0.7 [facility] Comment on above: Performed By: #### C BC #### [facility] [address] [place] [address] Dr. Wilian Santos Eosinophils/100 WBC (Bld) 1.2 % Normal 0.9-7.0 [facility] Comment on above: Performed By: #### C BC #### [facility] [address] [place] [address] Dr. Wilian Santos Erythrocyte distribution width (RBC) [Ratio] 14.0 % Normal 11.0-15.0 [facility] Comment on above: Performed By: #### C BC #### [facility] [address] [place] [address] Dr. Wilian Santos Hematocrit (Bld) [Volume fraction] 42.0 % Normal 36.0-48.0 [facility] Comment on above: Performed By: #### C BC #### [facility] [address] [place] [address] Dr. Wilian Santos Hemoglobin (Bld) [Mass/Vol] 13.6 g/dL Normal 12.0-16.0 [facility] Comment on above: Performed By: #### C BC #### [facility] [address] [place] [address] Dr. Wilian Santos IG # 0.02 10e3/ul Normal 0.00-0.03 [facility] Comment on above: Performed By: #### C BC #### [facility] [address] [place] [address] Dr. Wilian Santos IG % 0.3 % Normal 0.0-0.5 [facility] Comment on above: Performed By: #### C BC #### [facility] [address] [place] [address] Dr. Wilian Santos LYMPH # 2.4 103/ul Normal 1.2-3.8 [facility] Comment on above: Performed By: #### C BC #### [facility] [address] [place] [address] Dr. Wilian Santos Lymphocytes/100 WBC (Bld) 35.9 % Normal 20.5-60.0 [facility] Comment on above: Performed By: #### C BC #### [facility] [address] [place] [address] Dr. Wilian Santos MANUAL DIFF REQ NO Normal [facility] Comment on above: Performed By: #### C BC #### [facility] [address] [place] [address] Dr. Wilian Santos MCH (RBC) [Entitic mass] 27.5 pg Normal 26.7-34.0 [facility] Comment on above: Performed By: #### C BC #### [facility] [address] [place] [address] Dr. Wilian Santos MCHC (RBC) [Mass/Vol] 32.4 g/dL Normal 29.9-35.2 [facility] Comment on above: Performed By: #### C BC #### [facility] [address] [place] [address] Dr. Wilian Santos MCV (RBC) [Entitic vol] 84.8 fL Normal 81.0-99.0 [facility] Comment on above: Performed By: #### C BC #### [facility] [address] [place] [address] Dr. Wilian Santos MONO # 0.4 103/ul Normal 0.3-0.8 [facility] Comment on above: Performed By: #### C BC #### [facility] [address] [place] [address] Dr. Wilian Santos Monocytes/100 WBC (Bld) 6.7 % Normal 1.7-12.0 [facility] Comment on above: Performed By: #### C BC #### [facility] [address] [place] [address] Dr. Wilian Santos NEUT # 3.6 103/ul Normal 1.4-6.5 [facility] Comment on above: Performed By: #### C BC #### [facility] [address] [place] [address] Dr. Wilian Santos Neutrophils/100 WBC (Bld) 55.6 % Normal 43.0-75.0 [facility] Comment on above: Performed By: #### C BC #### [facility] [address] [place] [address] Dr. Wilian Santos Platelet mean volume (Bld) [Entitic vol] 10.7 fL Normal 9.5-13.5 [facility] Comment on above: Performed By: #### C BC #### [facility] [address] [address] [address] Wilian Santos PLT 305 103/ul Normal 150-450 [facility] Comment on above: Performed By: #### C BC #### [facility] [address] [address] [address] Wilian Santos RBC 4.95 106/ul Normal 4.20-5.40 [facility] Comment on above: Performed By: #### C BC #### [facility] [address] [address] [address] Wilian Santos WBC 6.5 103/ul Normal 4.0-11.0 [facility] Comment on above: Performed By: #### C BC #### [facility] [address] [place] [address] Dr. Wilian Santos FREE THYROXINE INDEX T7on FTI 3.27 Normal [facility] Comment on above: Performed By: #### T SH, CMP, T7 #### [facility] [address] [address] [address] Wilian Santos T3U 33.0 % Normal 23.5-40.5 [facility] Comment on above: Performed By: #### T SH, CMP, T7 #### [facility] [address] [address] [address] Wilian Santos T4 [Mass/Vol] 9.90 ug/dL Normal 5.53-11.00 [facility] Comment on above: Performed By: #### T SH, CMP, T7 #### [facility] [address] [address] [address] Wilian Santos GLYCOHEMOGLOBIN A1Con 2021 ADA RECOMMENDATION ADA THERAPEUTIC TARG ET 6.0 - 7.0 ACTION SUGGESTED > 7.0 Normal [facility] Comment on above: Performed By: #### T 7, TSH, CMP, PREGQNT #### [facility] [address] [place] [address] Dr. Wilian Santos Glucose [Mass/Vol] 108 mg/dL Normal [facility] Comment on above: Performed By: #### T 7, TSH, CMP, PREGQNT #### [facility] [address] [address] [address] Wilian Santos HbA1c (Bld) [Mass fraction] 5.4 % Normal <=6.0 [facility] Comment on above: Performed By: #### T 7, TSH, CMP, PREGQNT #### [facility] [address] [address] [address] Wilian Santos PROF 14(COMP METB)on 022 Albumin [Mass/Vol] 4.1 g/dL Normal 3.4-5.0 [facility] Comment on above: Performed By: #### T SH, CMP, T7 #### [facility] [address] [place] [address] Dr. Wilian Santos Albumin/Globulin [Mass ratio] 1.0 {ratio} Normal [facility] Comment on above: Performed By: #### T SH, CMP, T7 #### [facility] [address] [place] [address] Dr. Wilian Santos ALP [Catalytic activity/Vol] 91 U/L Normal 46-116 [facility] Comment on above: Performed By: #### T SH, CMP, T7 #### [facility] [address] [place] [address] Dr. Wilian Santos ALT [Catalytic activity/Vol] 25 U/L Normal 14-59 [facility] Comment on above: Performed By: #### T SH, CMP, T7 #### [facility] [address] [address] [address] Wilian Santos Anion gap [Moles/Vol] 15.1 mmol/L Normal [facility] Comment on above: Performed By: #### T SH, CMP, T7 #### [facility] [address] [place] [address] Dr. Wilian Santos AST [Catalytic activity/Vol] 14 U/L Critically low 15-37 [facility] Comment on above: Performed By: #### T SH, CMP, T7 #### [facility] [address] [place] [address] Dr. Wilian Santos Bilirubin [Mass/Vol] 0.3 mg/dL Normal 0.2-1.3 [facility] Comment on above: Performed By: #### T ELOY CMP, T7 #### [facility] [address] [place] [address] Dr. Wilian Santos Calcium [Mass/Vol] 9.4 mg/dL Normal 8.5-10.1 [facility] Comment on above: Performed By: #### T ELOY CMP, T7 #### [facility] [address] [place] [address] Dr. Wilian Santos Chloride [Moles/Vol] 104 mmol/L Normal 98-107 [facility] Comment on above: Performed By: #### T ELOY CMP, T7 #### [facility] [address] [place] [address] Dr. Wilian Santos CO2 [Moles/Vol] 25.1 mmol/L Normal 22.0-30.0 [facility] Comment on above: Performed By: #### T ELOY CMP, T7 #### [facility] [address] [place] [address] Dr. Wilian Santos Creatinine [Mass/Vol] 0.58 mg/dL Normal 0.52-1.04 [facility] Comment on above: Performed By: #### T ELOY CMP, T7 #### [facility] [address] [place] [address] Dr. Wilian Santos EGFR-AF PRYDEINIG >60 Normal >=60 [facility] Comment on above: Performed By: #### T ELOY CMP, T7 #### [facility] [address] [place] [address] Dr. Wilian Santos EGFR-NON AF PRYDEINIG >60 Normal >=60 [facility] Comment on above: Performed By: #### T ELOY CMP, T7 #### [facility] [address] [place] [address] Dr. Wilian Santos Globulin (S) [Mass/Vol] 4.2 g/dL Normal [facility] Comment on above: Performed By: #### T ELOY, CMP, T7 #### [facility] [address] [address] [address] Wilian Santos Glucose [Mass/Vol] 92 mg/dL Normal 74-106 [facility] Comment on above: Performed By: #### T ELOY CMP, T7 #### [facility] [address] [place] [address] Dr. Wilian Santos Potassium [Moles/Vol] 4.2 mmol/L Normal 3.4-5.0 [facility] Comment on above: Performed By: #### T ELOY, CMP, T7 #### [facility] [address] [place] [address] Dr. Wilian Santos Protein [Mass/Vol] 8.3 g/dL Critically high 6.1-8.2 [facility] Comment on above: Performed By: #### T ELOY CMP, T7 #### [facility] [address] [place] [address] Dr. Wilian Snatos Sodium [Moles/Vol] 140 mmol/L Normal 137-145 [facility] Comment on above: Performed By: #### T ELOY, CMP, T7 #### [facility] [address] [place] [address] Dr. Wilian Santos Urea nitrogen [Mass/Vol] 15.0 mg/dL Normal 7.0-18.0 [facility] Comment on above: Performed By: #### T ELOY CMP, T7 #### [facility] [address] [place] [address] Dr. Wilian Santos Urea nitrogen/Creatinine [Mass ratio] 25.9 mg/mg Normal [facility] Comment on above: Performed By: #### T ELOY, CMP, T7 #### [facility] [address] [place] [address] Dr. Wilian Santos TSHon 09-22-2021 TSH 2.856 uIU/mL Normal 0.470-4.680 [facility] Comment on above: Performed By: #### T ELOY, CMP, T7 #### [facility] [address] [place] [address] Dr. Wilian Santos TSH RANGE SEE BELOW Normal [facility] Comment on above: Result Comment: <0.3 4 UIU/ml HYPERTHYROID 0.34-5.60 UIU/ml EUTHYROID >5.60 UIU/ml HYPOTHYROID Performed By: #### T SH, CMP, T7 #### [facility] [address] [address] [address] Wilian Santos Cult, Bloodon 08-31-2018 Cult, Blood Specimen Description .BLOOD 10ML RED 10ML PURP RIGHT AC Special Requests NOT REPORTED Culture NO GROWTH 6 DAYS Report Status FINAL 08/31/2018 [facility] Comment on above: Performed By: #### C DP, HCG, CMPX, LIP, PT, PTT #### [facility] [address] [place] [id number] Application Programmer Analyst: Viet Andrew MD Cult,Bloodon 08-31-2018 Cult,Blood Specimen Description .BLOOD 0ML RED 1ML PURP RIGHT UPPER SHOULDER Special Requests NOT REPORTED Culture NO GROWTH 6 DAYS Report Status FINAL 08/31/2018 [facility] Comment on above: Performed By: #### C DP, HCG, CMPX, LIP, PT, PTT #### [facility] [address] [facility] [place] [address] [employer] Program[employer] Analyst: Viet Andrew MD Cult,Urineon 08-26-2018 Cult,Urine Specimen [...] SUSCEPTIBLE Trimethoprim/Sulfa >=320 RESISTANT Piperacillin/Tazobactam <=4 SUSCEPTIBLE [facility] Comment on above: Performed By: #### C DP, HCG, CMPX, LIP, PT, PTT #### [facility] [address] [facility] [place] [address] [employer] Programmer Analyst: Viet Andrew MD Urinalysis,Microon 9 ----- Normal [facility] Comment on above: Performed By: #### C DP, HCG, CMPX, LIP, PT, PTT #### [facility] [address] [facility] [place] [address] [employer] Programmer Analyst: Viet Andrew MD Bacteria LM.HPF #/area (Urine sed) FEW Abnormal NONE [facility] Comment on above: Performed By: #### C DP, HCG, CMPX, LIP, PT, PTT #### [facility] [place] [address] [employer] Programmer Analyst: Viet Andrew MD Epithelial cells LM.HPF #/area (Urine sed) 5 TO 10 Normal [facility] Comment on above: Performed By: #### C DP, HCG, CMPX, LIP, PT, PTT #### [facility] [place] [address] [employer] Programmer Analyst: Viet Andrew MD RBC #/vol (U) 50 TO 100 Normal [facility] Comment on above: Performed By: #### C DP, HCG, CMPX, LIP, PT, PTT #### [facility] [place] [address] [employer] Programmer Analyst: Viet Andrew MD WBC #/vol (U) 5 TO 10 Normal [facility] Comment on above: Performed By: #### C DP, HCG, CMPX, LIP, PT, PTT #### [facility] [place] [address] [employer] Program[employer] Analyst: Viet Andrew MD APTTon 08-24-2018 aPTT Coag time (Bld) 33.2 s Normal 24.0-36.0 [facility] Comment on above: Result Comment: IV Heparin Therapy Range: 62.0-94.0 Performed By: #### C DP, HCG, CMPX, LIP, PT, PTT #### [facility] [address] [facility] [place] [address] [employer] Programmer Analyst: Viet Andrew MD CBC with Diffon 08-24-2018 Abs. Basophil 0.00 k/uL Normal 0.0-0.2 [facility] Comment on above: Performed By: #### C DP, HCG, CMPX, LIP, PT, PTT #### [facility] [address] [facility] [place] [address] [employer] Program[employer] Analyst: Viet Andrew MD Abs.Neutrophil (Seg) 3.60 k/uL Normal 1.3-9.1 [facility] Comment on above: Performed By: #### C DP, HCG, CMPX, LIP, PT, PTT #### [facility] [address] [facility] [place] [address] [employer] Programmer Analyst: Viet Andrew MD Basophils/100 WBC (Bld) 0 % Normal 0-2 [facility] Comment on above: Performed By: #### C DP, HCG, CMPX, LIP, PT, PTT #### [facility] [place] [address] [employer] Programmer Analyst: Viet Andrew MD Eosinophils #/vol (Bld) 0.00 10*3/uL Normal 0.0-0.4 [facility] Comment on above: Performed By: #### C DP, HCG, CMPX, LIP, PT, PTT #### [facility] [address] [facility] [place] [address] [employer] Programmer Analyst: Viet Andrew MD Eosinophils/100 WBC (Bld) 1 % Normal 0-4 [facility] Comment on above: Performed By: #### C DP, HCG, CMPX, LIP, PT, PTT #### [facility] [address] [place] [address] [employer] Programmer Analyst: Viet Andrew MD Erythrocyte distribution width Ratio (RBC) 13.1 % Normal 11.5-14.9 [facility] Comment on above: Performed By: #### C DP, HCG, CMPX, LIP, PT, PTT #### [facility] [address] [place] [address] [employer] Programmer Analyst: Viet Andrew MD Hematocrit Volume Fraction (Bld) 46.4 % High 36-46 [facility] Comment on above: Performed By: #### C DP, HCG, CMPX, LIP, PT, PTT #### [facility] [address] [place] [address] Application Programmer Analyst: Viet Andrew MD Hemoglobin mass conc (Bld) 15.7 g/dL Normal 12.0-16.0 [facility] Comment on above: Performed By: #### C DP, HCG, CMPX, LIP, PT, PTT #### [facility] [place] [address] Application Programmer Analyst: Viet Andrew MD Lymphocytes #/vol (Bld) 1.20 10*3/uL Normal 1.0-4.8 [facility] Comment on above: Performed By: #### C DP, HCG, CMPX, LIP, PT, PTT #### [facility] [address] [place] [address] Application Programmer Analyst: Viet Andrew MD Lymphocytes/100 WBC (Bld) 21 % Low 25-45 [facility] Comment on above: Performed By: #### C DP, HCG, CMPX, LIP, PT, PTT #### [facility] [address] [place] [address] [employer] Programmer Analyst: Viet Andrew MD MCH Entitic mass (RBC) 30.0 pg Normal 26-34 [facility] Comment on above: Performed By: #### C DP, HCG, CMPX, LIP, PT, PTT #### [facility] [address] [place] [address] Application Programmer Analyst: Viet Andrew MD MCHC mass conc (RBC) 33.8 g/dL Normal 31-37 [facility] Comment on above: Performed By: #### C DP, HCG, CMPX, LIP, PT, PTT #### [facility] [address] [place] [address] Application Programmer Analyst: Viet Andrew MD MCV Entitic volume (RBC) 88.7 fL Normal 80-100 [facility] Comment on above: Performed By: #### C DP, HCG, CMPX, LIP, PT, PTT #### [facility] [address] [facility] [place] [address] Application Programmer Analyst: Viet Andrew MD Monocytes #/vol (Bld) 0.70 10*3/uL Normal 0.1-1.3 [facility] Comment on above: Performed By: #### C DP, HCG, CMPX, LIP, PT, PTT #### [facility] [place] [address] Application Programmer Analyst: Viet Andrew MD Monocytes/100 WBC (Bld) 13 % High 2-8 [facility] Comment on above: Performed By: #### C DP, HCG, CMPX, LIP, PT, PTT #### [facility] [place] [address] Application Programmer Analyst: Viet Andrew MD Neutrophil (Seg) 65 % High 34-64 [facility] Comment on above: Performed By: #### C DP, HCG, CMPX, LIP, PT, PTT #### [facility] [place] [address] Application Programmer Analyst: Viet Andrew MD Platelet mean volume Entitic volume (Bld) 9.4 fL Normal 6.0-12.0 [facility] Comment on above: Performed By: #### C DP, HCG, CMPX, LIP, PT, PTT #### [facility] [address] [place] [address] Application Programmer Analyst: Viet Andrew MD Platelets #/vol (Bld) 182 10*3/uL Normal 150-450 [facility] Comment on above: Performed By: #### C DP, HCG, CMPX, LIP, PT, PTT #### [facility] [address] [place] [address] Application Programmer Analyst: Viet Andrew MD RBC #/vol (Bld) 5.23 10*6/uL High 4.0-5.2 [facility] Comment on above: Performed By: #### C DP, HCG, CMPX, LIP, PT, PTT #### [facility] [address] [facility] [place] [address] Application Programmer Analyst: Viet Andrew MD WBC #/vol (Bld) 5.6 10*3/uL Normal 4.5-13.5 [facility] Comment on above: Performed By: #### C DP, HCG, CMPX, LIP, PT, PTT #### [facility] [address] [place] [address] Application Programmer Analyst: Viet Andrew MD Abs.Imm.Granulocyte NOT REPORTED Normal 0.00-0.30 [facility] Comment on above: Performed By: #### C DP, HCG, CMPX, LIP, PT, PTT #### [facility] [address] [place] [address] Application Programmer Analyst: Viet Andrew MD Auto Diff Performed NOT REPORTED Normal [facility] Comment on above: Performed By: #### C DP, HCG, CMPX, LIP, PT, PTT #### [facility] [address] [facility] [place] [address] Application Programmer Analyst: Viet Andrew MD Immature granulocytes #/vol (Bld) NOT REPORTED Normal 0 [facility] Comment on above: Performed By: #### C DP, HCG, CMPX, LIP, PT, PTT #### [facility] [address] [facility] [place] [address] Application Programmer Analyst: Viet Andrew MD NRBC Automated NOT REPORTED Normal [facility] Comment on above: Performed By: #### C DP, HCG, CMPX, LIP, PT, PTT #### [facility] [address] [facility] [place] [address] Application Programmer Analyst: Viet Andrwe MD Platelets #/vol (Bld) NOT REPORTED Normal [facility] Comment on above: Performed By: #### C DP, HCG, CMPX, LIP, PT, PTT #### [facility] [address] [facility] [place] [address] Application Programmer Analyst: Viet Andrew MD RBC morphology finding Nom (Bld) NOT REPORTED Normal [facility] Comment on above: Performed By: #### C DP, HCG, CMPX, LIP, PT, PTT #### [facility] [place] [address] Application Programmer Analyst: Viet Andrew MD WBC Morphology NOT REPORTED Normal [facility] Comment on above: Performed By: #### C DP, HCG, CMPX, LIP, PT, PTT #### [facility] [place] [address] Application Programmer Analyst: Vite Andrew MD Comp Metabolic Pr/rfx MGon 0 08-24-2018 (cont.) Normal [facility] Comment on above: Result Comment: Aver age GFR for 20-29 years old: 116 mL/min/1.73sq m Chronic Kidney Disease: <60 mL/min/1.73sq m Kidney failure: <15 mL/min/1.73sq m eGFR calculated using average adult body mass. Additional eGFR calculator available at: http://www.[employer]/multiple_crcl_2012.htm Performed By: #### C DP, HCG, CMPX, LIP, PT, PTT #### [facility] [address] [facility] [place] [address] Application Programmer Analyst: Viet Andrew MD Albumin mass conc 4.7 g/dL Normal 3.5-5.2 [facility] Comment on above: Performed By: #### C DP, HCG, CMPX, LIP, PT, PTT #### [facility] [address] [facility] [place] [address] Application Programmer Analyst: Viet Andrew MD Alkaline Phos 84 U/L Normal 35-104 [facility] Comment on above: Performed By: #### C DP, HCG, CMPX, LIP, PT, PTT #### [facility] [address] [facility] [place] [address] Application Programmer Analyst: Viet Andrew MD ALT enzyme act/vol 35 U/L High 5-33 [facility] Comment on above: Performed By: #### C DP, HCG, CMPX, LIP, PT, PTT #### [facility] [address] [facility] [place] [address] Application Programmer Analyst: Viet Andrew MD Anion gap molar conc 17 mmol/L Normal 9-17 [facility] Comment on above: Performed By: #### C DP, HCG, CMPX, LIP, PT, PTT #### [facility] [address] [facility] [place] [address] Application Programmer Analyst: Viet Andrew MD AST enzyme act/vol 26 U/L Normal <32 [facility] Comment on above: Performed By: #### C DP, HCG, CMPX, LIP, PT, PTT #### [facility] [address] [place] [address] Application Programmer Analyst: Viet Andrew MD Bilirubin Ql (U) 0.51 mg/dL Normal 0.3-1.2 [facility] Comment on above: Performed By: #### C DP, HCG, CMPX, LIP, PT, PTT #### [facility] [address] [facility] [place] [address] Application Programmer Analyst: Viet Andrew MD Calcium mass conc 10.0 mg/dL Normal 8.6-10.4 [facility] Comment on above: Performed By: #### C DP, HCG, CMPX, LIP, PT, PTT #### [facility] [place] [address] Application Programmer Analyst: Viet Andrew MD Chloride molar conc 99 mmol/L Normal 98-107 [facility] Comment on above: Performed By: #### C DP, HCG, CMPX, LIP, PT, PTT #### [facility] [place] [address] Application Programmer Analyst: Viet Andrew MD CO2 molar conc 23 mmol/L Normal 20-31 [facility] Comment on above: Performed By: #### C DP, HCG, CMPX, LIP, PT, PTT #### [facility] [address] [facility] [place] [address] Application Programmer Analyst: Vite Andrew MD Creatinine mass conc 0.72 mg/dL Normal 0.50-0.90 [facility] Comment on above: Performed By: #### C DP, HCG, CMPX, LIP, PT, PTT #### [facility] [address] [facility] [place] [address] Application Programmer Analyst: Viet Andrew MD GFR, Amer >60 Normal >60 [facility] Comment on above: Performed By: #### C DP, HCG, CMPX, LIP, PT, PTT #### [facility] [address] [facility] [place] [address] Application Programmer Analyst: Viet Andrew MD GFR,non Amer >60 Normal >60 [facility] Comment on above: Performed By: #### C DP, HCG, CMPX, LIP, PT, PTT #### [facility] [address] [facility] [place] [address] Application Programmer Analyst: Viet Andrew MD Glucose mass conc 83 mg/dL Normal 70-99 [facility] Comment on above: Performed By: #### C DP, HCG, CMPX, LIP, PT, PTT #### [facility] [address] [facility] [place] [address] Application Programmer Analyst: Viet Andrew MD Potassium molar conc 3.6 mmol/L Low 3.7-5.3 [facility] Comment on above: Performed By: #### C DP, HCG, CMPX, LIP, PT, PTT #### [facility] [address] [facility] [place] [address] Application Programmer Analyst: Viet Andrew MD Protein mass conc 8.8 g/dL High 6.4-8.3 [facility] Comment on above: Performed By: #### C DP, HCG, CMPX, LIP, PT, PTT #### [facility] [address] [facility] [place] [address] Application Programmer Analyst: Viet Andrew MD Sodium molar conc 139 mmol/L Normal 135-144 [facility] Comment on above: Performed By: #### C DP, HCG, CMPX, LIP, PT, PTT #### [facility] [address] [place] [address] Application Programmer Analyst: Viet Andrew MD Urea nitrogen mass conc 16 mg/dL Normal 6-20 [facility] Comment on above: Performed By: #### C DP, HCG, CMPX, LIP, PT, PTT #### [facility] [address] [facility] [place] [address] Application Programmer Analyst: Viet Andrew MD Albumin/Globulin mass ratio NOT REPORTED Normal 1.0-2.5 [facility] Comment on above: Performed By: #### C DP, HCG, CMPX, LIP, PT, PTT #### [facility] [address] [facility] [place] [address] Application Programmer Analyst: Viet Andrew MD BUN/CRE Ratio NOT REPORTED Normal -20 [facility] Comment on above: Performed By: #### C DP, HCG, CMPX, LIP, PT, PTT #### [facility] [address] [facility] [place] [address] Application Programmer Analyst: Viet Andrew MD Staging: NOT REPORTED Normal [facility] Comment on above: Performed By: #### C DP, HCG, CMPX, LIP, PT, PTT #### [facility] [address] [facility] [place] [address] Application Programmer Analyst: Viet Andrew MD Flu A/B Ag Detectionon 08-24 Flu A/B Ag Detection Specimen Description .NASOPHARYNGEAL SWAB Special Requests NOT REPORTED Direct Exam PRESUMPTIVE NEGATIVE for Influenza A + B antigens. PCR testing to confirm this result is available upon request. Specimen will be saved in the laboratory for 7 days. Please call [phone] if PCR testing is indicated. Report Status FINAL 08/24/2018 Normal [facility] Comment on above: Performed By: #### F LUAD #### [facility] [address] [facility] [place] [address] Application Programmer Analyst: Viet Andrew MD HCG Screen, Bloodon 08-25-19 19 HCG Qn Negative Normal NEG [facility] Comment on above: Result Comment: Spec [...] DP, HCG, CMPX, LIP, PT, PTT #### [facility] [address] [facility] [place] [address] Application Programmer Analyst: Viet Andrew MD Lactate, Sepsison 08-24-2018 Lactic Acid, Sepsis 1.2 mmol/L Normal 0.5-1.9 [facility] Comment on above: Performed By: #### L ACDS #### [facility] [place] [address] Application Programmer Analyst: Viet Andrew MD Lactic Acid,Sep Wbld NOT REPORTED Normal 0.5-1.9 [facility] Comment on above: Performed By: #### L ACDS #### [facility] [address] [facility] [place] [address] Application Programmer Analyst: Viet Andrew MD Lipaseon 08-24-2018 Lipase enzyme act/vol 36 U/L Normal 13-60 [facility] Comment on above: Performed By: #### C DP, HCG, CMPX, LIP, PT, PTT #### [facility] [place] [address] Application Programmer Analyst: Viet Andrew MD PTon 08-24-2018 INR Coag RelTime (PPP) 1.2 {INR} Normal [facility] Comment on above: Result Comment: Non-therapeutic Range: INR = 0.9-1.2 Therapeutic Range: Moderate Anticoagulant Intensity: INR = 2.0-3.0 High Anticoagulant Intensity: INR = 2.5-3.5 Performed By: #### C DP, HCG, CMPX, LIP, PT, PTT #### [facility] [address] [facility] [place] [address] Application Programmer Analyst: Viet Andrew MD Prothrombin time (PT) Coag time (PPP) 14.7 s High 11.8-14.6 [facility] Comment on above: Performed By: #### C DP, HCG, CMPX, LIP, PT, PTT #### [facility] [address] [place] [address] Application Programmer Analyst: Viet Andrew MD Urinalysis, Routineon 2018 Acetoacetic Acid,Ur LARGE Abnormal NEG [facility] Comment on above: Performed By: #### U A, ROBERTOO #### [facility] [address] [facility] [place] [address] Application Programmer Analyst: Viet Andrew MD Bilirubin, SemiQt,Ur LARGE AMOUNT Abnormal NEG [facility] Comment on above: Performed By: #### U A, ROBERTOO #### [facility] [address] [facility] [place] [address] Application Programmer Analyst: Viet Andrew MD Color Nom (U) RED Abnormal YEL [facility] Comment on above: Performed By: #### U A, UMANGELICAO #### [facility] [address] [place] [address] Application Programmer Analyst: Viet Andrew MD Glucose,Semi-qnt,Ur Negative Normal NEG [facility] Comment on above: Performed By: #### U A, UMICAO #### [facility] [address] [place] [address] Application Programmer Analyst: Viet Andrew MD Hemoglobin, Ur LARGE Abnormal NEG [facility] Comment on above: Performed By: #### U A, UMICAO #### [facility] [address] [place] [address] Application Programmer Analyst: Viet Andrew MD Leuckocyte Esterase MOD Abnormal NEG [facility] Comment on above: Performed By: #### U A, UMICAO #### [facility] [address] [place] [address] Application Programmer Analyst: Viet Andrew MD Nitrite,Ur Negative Normal NEG [facility] Comment on above: Performed By: #### U A, UMICAO #### [facility] [address] [facility] [place] [address] Application Programmer Analyst: Viet Andrew MD PH,Ur 5.5 Normal 5.0-8.0 [facility] Comment on above: Performed By: #### U A, UMICAO #### [facility] [address] [facility] [place] [address] Application Programmer Analyst: Viet Andrew MD Protein mass conc (U) 2+ Abnormal NEG [facility] Comment on above: Performed By: #### U A, UMICAO #### [facility] [address] [facility] [place] [address] Application Programmer Analyst: Viet Andrew MD Spec. Kane,Ur 1.024 Normal 1.000-1.030 [facility] Comment on above: Performed By: #### U A, UMICAO #### [facility] [address] [facility] [place] [address] Application Programmer Analyst: Viet Andrew MD Turbidity TURBID Abnormal CLEAR [facility] Comment on above: Performed By: #### U A, UMICAO #### [facility] [address] [facility] [place] [address] Application Programmer Analyst: Viet Andrew MD Urobilinogen,Ur Normal Normal NORM [facility] Comment on above: Performed By: #### U A, UMICAO #### [facility] [address] [place] [address] Application Programmer Analyst: Viet Andrew MD Comment NOT REPORTED Normal [facility] Comment on above: Performed By: #### U Bia UMICAO #### [facility] [address] [facility] [place] [address] Application Programmer Analyst: Viet Andrew MD Urinalysis,Microon 9 Amorphous sediment LM Ql (Urine sed) NOT REPORTED Normal NONE [facility] Comment on above: Performed By: #### C DP, HCG, CMPX, LIP, PT, PTT #### [facility] [address] [facility] [place] [address] Application Programmer Analyst: Viet Andrew MD Casts LM.LPF #/area (Urine sed) NOT REPORTED Normal [facility] Comment on above: Performed By: #### C DP, HCG, CMPX, LIP, PT, PTT #### [facility] [address] [place] [address]. [place] [address] Application Programmer Analyst: Viet Andrew MD Crystals LM Nom (Urine sed) NOT REPORTED Normal [facility] Comment on above: Performed By: #### C DP, HCG, CMPX, LIP, PT, PTT #### [facility] [place] [address] Application Programmer Analyst: Viet Andrew MD Epithelial, Renal NOT REPORTED Normal 0 [facility] Comment on above: Performed By: #### C DP, HCG, CMPX, LIP, PT, PTT #### [facility] [address] [facility] [place] [address] Application Programmer Analyst: Viet Andrew MD Mucus Strands NOT REPORTED Normal [facility] Comment on above: Performed By: #### C DP, HCG, CMPX, LIP, PT, PTT #### [facility] [address] [facility] [place] [address] Application Programmer Analyst: Viet Andrew MD Other Observations NOT REPORTED Normal NREQ [facility] Comment on above: Performed By: #### C DP, HCG, CMPX, LIP, PT, PTT #### [facility] [address] [facility] [place] [address] Application Programmer Analyst: Viet Andrew MD Trichomonas NOT REPORTED Normal NONE [facility] Comment on above: Performed By: #### C DP, HCG, CMPX, LIP, PT, PTT #### [facility] [address] [facility] [place] [address] Application Programmer Analyst: Viet Andrew MD Yeast LM Ql (Urine sed) NOT REPORTED Normal NONE [facility] Comment on above: Performed By: #### C DP, HCG, CMPX, LIP, PT, PTT #### [facility] [address] [facility] 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 Normal [facility] Urinalysis w/ Microon 2017 ----- Normal [facility] Comment on above: Performed By: #### U AMIC ####[address] [place] [address] Acetaminophen mass conc Negative Normal NEG [facility] Comment on above: Performed By: #### U AMIC ####[address] [place] [address] Bacteria 1+ Abnormal NONE [facility] Comment on above: Performed By: #### U AMIC ####[address] [place] [address] Bilirubin, SemiQt,Ur Negative Normal [facility] Comment on above: Performed By: #### U AMIC ####[address] [place] [address] Color YELLOW Normal YEL [facility] Comment on above: Performed By: #### U AMIC ####[address] [place] [address] Epithelial cells 5 TO 10 Normal 0-25 [facility] Comment on above: Performed By: #### U AMIC ####[address] [place] [address] Glucose,Semi-qnt,Ur Negative Normal NEG [facility] Comment on above: Performed By: #### U AMIC ####[address] [place] [address] Hemoglobin, Ur 2+ Abnormal NEG [facility] Comment on above: Performed By: #### U AMIC ####[address] [place] [address] Leuckocyte Esterase MODERATE Abnormal NEG [facility] Comment on above: Performed By: #### U AMIC ####[address] [place] [address] Mucus Strands 1+ Abnormal NONE [facility] Comment on above: Performed By: #### U AMIC ####[address] [place] [address] Nitrite,Ur Negative Normal [facility] Comment on above: Performed By: #### U AMIC ####[address] [place] [address] PH,Ur 6.0 Normal 5.0-9.0 [facility] Comment on above: Performed By: #### U AMIC ####[address] [place] [address] Protein mass conc TRACE Abnormal NEG [facility] Comment on above: Performed By: #### U AMIC ####[address] [place] [address] RBC Test strip #/vol (U) 5 TO 10 Normal 0-2 [facility] Comment on above: Performed By: #### U AMIC ####[address] [place] [address] Spec. Kane,Ur >1.030 High 1.010-1.020 [facility] Comment on above: Performed By: #### U AMIC ####[address] [place] [address] Turbidity CLEAR Normal CLEAR [facility] Comment on above: Performed By: #### U AMIC ####[address] [place] [address] Urine WBC's 50 TO 100 Normal 0-5 [facility] Comment on above: Performed By: #### U AMIC ####[address] [place] [address] Urobilinogen,Ur Normal Normal NORM [facility] Comment on above: Performed By: #### U AMIC ####[address] [place] [address] Amorphous Sediment NOT REPORTED Normal NONE [facility] Comment on above: Performed By: #### U AMIC ####[address] [place] [address] Casts NOT REPORTED Normal [facility] Comment on above: Performed By: #### U AMIC ####[address] [place] [address] Comment NOT REPORTED Normal [facility] Comment on above: Performed By: #### U AMIC ####[facility] [place] [address] Crystals NOT REPORTED Normal NONE [facility] Comment on above: Performed By: #### U AMIC ####[facility] [place] [address] Epithelial, Renal NOT REPORTED Normal 0 [facility] Comment on above: Performed By: #### U AMIC ####[facility] [place] [address] Other Observations NOT REPORTED Normal NREQ [facility] Comment on above: Performed By: #### U AMIC ####[address] [place] [address] Trichomonas NOT REPORTED Normal NONE [facility] Comment on above: Performed By: #### U AMIC ####[address] [place] [address] Yeast NOT REPORTED Normal NONE [facility] Comment on above: Performed By: #### U AMIC ####[address] [place] [address] Clinic Note - CONCHITA-Hematology - Follow Upon [...] 8 milliliter(s) orally 4 times a day [facility] [phone], Start Date: 02-Nov-2015 Sprintec 0.25 mg-35 mcg [...] notedLab Results:Results:CBC date/time WBC HGB HCT PLT [id number] 15:21 8.1 12.9 37.9 242 5.04Assessment, Plan, [...] with PHONote Recipients: Angie Nelson MD - [phone] Yes when ready to send to Provider(s) [...] Updated: 05-Sep-2017 16:39 by Bg Puentes) Normal [facility] Measurementson 09-05-2017 BMI (Body Mass Index) Growth Chart:Growth Chart Measurements:? Growth Chart Length/Height (cm) 167.1? Growth Chart Weight (kg) 82.1? Growth Chart BMI (kg/m2) 29.402Electronic Signatures:Tiago Flores) (Signed 05-Sep-2017 14:31) Authored: Growth ChartLast Updated: 05-Sep-2017 14:31 by Tiago Flores) Normal [facility] Vital Signs Date Time Vital Sign Value Performing Clinician Marshal morrissey 02-04-2025 09: Body height 168.[address] [facility] 02-04-2025 09:0400 Body mass index (BMI) [Ratio] 34.54 kg/m2 [facility] 02-04-2025 09:11-0400 Body weight 98.07 kg [facility] 02-04-2025 09:11-0400 Diastolic blood pressure 92 mm[Hg] [facility] 02-04-2025 09:11-0400 Systolic blood pressure 128 mm[Hg] [facility] 12-16-2024 08:20-0400 Body height 168.5 cm [facility] 12-16-2024 08:20-0400 Body mass index (BMI) [Ratio] 35.02 kg/m2 [facility] 12-16-2024 08:20-0400 Body weight 99.43 kg [facility] 12-16-2024 08:20-0400 Diastolic blood pressure 84 mm[Hg] [facility] 12-16-2024 08:20-0400 Systolic blood pressure 126 mm[Hg] [facility] 08-19-2024 09:04-0500 Body height 165.1 cm [facility] 08-19-2024 09:04-0500 Body mass index (BMI) [Ratio] 36.28 kg/m2 [facility] 08-19-2024 09:04-0500 Body weight 98.88 kg [facility] 08-19-2024 09:04-0500 Diastolic blood pressure 84 mm[Hg] [facility] 08-19-2024 09:04-0500 Systolic blood pressure 126 mm[Hg] [facility] 08-05-2024 10:06-0500 Body height 165.1 cm [facility] 08-05-2024 10:06-0500 Body mass index (BMI) [Ratio] 37.11 kg/m2 [facility] 08-05-2024 10:06-0500 Body weight 101.15 kg [facility] 08-05-2024 10:06-0500 Diastolic blood pressure 100 mm[Hg] [facility] 08-05-2024 10:06-0500 Systolic blood pressure 150 mm[Hg] [facility] 06-24-2024 15:53-0500 Body height 165.1 cm Kathleen Eisenberg MD Work Phone: [facility] 06-24-2024 15:53-0500 Body mass index (BMI) [Ratio] 39.07 kg/m2 Kathleen Eisenberg MD Work Phone: [facility] 06-24-2024 15:53-0500 Body weight 106.5 kg Kathleen Eisenberg MD Work Phone: [facility] 06-24-2024 15:53-0500 Diastolic blood pressure 76 mm[Hg] Kathleen Eisenberg MD Work Phone: [facility] 06-24-2024 15:53-0500 Systolic blood pressure 118 mm[Hg] Kathleen Eisenberg MD Work Phone: [facility] 05-28-2024 15:26-0500 Body height 165.1 cm [facility] 05-28-2024 15:26-0500 Body mass index (BMI) [Ratio] 38.77 kg/m2 [facility] 05-28-2024 15:26-0500 Body weight 105.69 kg [facility] 05-28-2024 15:26-0500 Diastolic blood pressure 84 mm[Hg] [facility] 05-28-2024 15:26-0500 Systolic blood pressure 118 mm[Hg] [facility] 05-14-2024 13:30-0500 Body height 165.1 cm Kathleen Eisenberg MD Work Phone: [facility] 05-14-2024 13:30-0500 Body mass index (BMI) [Ratio] 38.84 kg/m2 Kathleen Eisenberg MD Work Phone: [facility] 05-14-2024 13:30-0500 Body weight 105.87 kg Kathleen Eisenberg MD Work Phone: [facility] 05-14-2024 13:30-0500 Diastolic blood pressure 88 mm[Hg] Kathleen Eisenberg MD Work Phone: [facility] 05-14-2024 13:30-0500 Systolic blood pressure 136 mm[Hg] Kathleen Eisenberg MD Work Phone: [facility] 10-16-2023 15:45-0400 Body mass index (BMI) [Ratio] 39.24 kg/m2 Kathleen Eisenberg MD Work Phone: [facility] 10-16-2023 15:45-0400 Body weight 106.96 kg Kathleen Eisenberg MD Work Phone: [facility] 10-16-2023 15:45-0400 Diastolic blood pressure 78 mm[Hg] Kathleen Eisenberg MD Work Phone: [facility] 10-16-2023 15:45-0400 Systolic blood pressure 130 mm[Hg] Kathleen Eisenberg MD Work Phone: [facility] 09-07-2023 15:30-0400 Body height 165.1 cm [facility] [employer] [facility] [employer] [facility] 09-07-2023 15:30-0400 Body mass index (BMI) [Ratio] 38.27 kg/m2 [facility] [employer] [facility] 09-07-2023 15:30-0400 Body weight 104.33 kg [facility] 09-07-2023 15:30-0400 [facility] blood [facility] 82 mm[facility]Hg[facility] 09-07-2023 15:30-0400 Systolic blood pressure 142 mm[Hg] [facility] Encounters Encounter Date Encounter Type Care Provider Facility Start: 02-13-2025 ambulatory [place] Start: 02-05-2025 ambulatory Isma Roberson acility:[facility] Start: 02-04-2025 End: 02-04-2025 Office outpatient visit 15 minutes [facility] Personal Investment Adviser [facility] Comment on above: Encounter for control pills maintenance (Primary Dx); control counseling Start: 02-04-2025 End: 02-04-2025 ambulatory [facility]CIA [facility] Start: 12-16-2024 End: 12-16-[address] [facility] Work Phone: Start: 12-16-2024 End: 12-16-2024 Periodic preventive med est patient 18-39 yrs [facility] Comment on above: Women's annual routi ne gynecological examination (Primary Dx); Screening for cervical cancer; Surveillance for control, oral contraceptives; Cutaneous abscess of groin; Right ovarian cyst; BCP ( control pills) initiation Start: 12-16-2024 End: 12-16-2024 ambulatory [facility] Start: 12-16-2024 Encounter for gynecological examination (general) (routine) without abnormal findings [facility] Start: 12-10-2024 End: 12-10-2024 Refill Lluvia Ortiz [facility] Comment on above: BCP ( control p ills) initiation Start: 08-19-2024 End: 08-19-2024 Office outpatient visit 15 minutes [facility] Comment on above: Nexplanon removal (P rimary Dx); BCP ( control pills) initiation; control counseling Start: 08-19-2024 End: 08-19-2024 ambulatory [facility] Start: 08-05-2024 End: 08-05-2024 Office outpatient new 30 minutes [facility] Comment on above: Right ovarian cyst ( Primary Dx); Hypertension, unspecified type Start: 08-05-2024 End: 08-05-2024 ambulatory [facility] Start: 07-29-2024 End: 07-29-2024 Emergency department patient visit [facility] Start: 07-28-2024 End: 07-28-2024 Telephone encounter Rosa Ulrich [facility] Comment on above: having severe pain f rom a cyst Start: 07-26-2024 End: 07-26-2024 Documentation procedure Mar Pugh PSYCHOLOGICAL OPERATIONS OFFICER-CNM Work Phone: [facility] Start: 07-26-2024 End: 07-26-2024 Telephone encounter Stephanie Valentino RN [facility] Comment on above: Abdominal Pain Start: 07-26-2024 End: 07-26-2024 Emergency department patient visit [facility] Start: 07-26-2024 End: 07-26-2024 Emergency department patient visit [facility] Start: 07-23-2024 ambulatory [facility] Start: 07-23-2024 Encounter for gynecological examination (general) (routine) without abnormal findings [facility] Start: 06-24-2024 End: 06-24-2024 ambulatory [facility] Start: 06-24-2024 End: 06-24-2024 Office outpatient visit 25 minutes Kathleen Eisenberg MD Work Phone: [facility] Comment on above: Pelvic pain (Primary Dx); Dysmenorrhea Start: 06-24-2024 End: 06-24-2024 ambulatory [facility] Start: 06-12-2024 End: 06-12-2024 Emergency department patient visit [facility] Start: 05-31-2024 End: 05-31-2024 ambulatory LEAH GUEVARA [facility] Start: 05-28-2024 End: 05-28-2024 Office outpatient visit 15 minutes [facility] [employer] Inspector [facility] Comment on above: Dysmenorrhea (Primar y Dx); Menorrhagia with irregular cycle Start: 05-28-2024 End: 05-28-2024 ambulatory [facility] Start: 05-14-2024 End: 05-14-2024 Office outpatient visit 15 minutes Kathleen Eisenberg MD Work Phone: [facility] Comment on above: Bilateral mastodynia (Primary Dx); Acute midline thoracic back pain Start: 05-14-2024 End: 05-14-2024 ambulatory [facility] Start: 05-12-2024 End: 05-12-2024 Emergency department patient visit [facility] Start: 01-07-2024 End: 01-08-2024 Emergency department patient visit [facility] Start: 01-07-2024 End: 01-08-2024 Emergency department patient visit BELLA Anderson [facility] Start: 12-05-2023 End: 12-06-2023 Refill Michelle Rita Romero PSYCHOLOGICAL OPERATIONS OFFICER-CNM Work Phone: [facility] Comment on above: depressio n Start: 12-05-2023 End: 12-05-2023 Emergency department patient visit [facility] Start: 12-04-2023 End: 12-04-2023 Telephone encounter Leah Guevara APRN-MAGNETOMETER OPERATOR Work Phone: [facility] Start: 10-30-2023 End: 10-31-2023 [facility] Start: 10-16-2023 End: 10-16-2023 [facility] Start: 10-16-2023 End: 10-16-2023 Office outpatient visit 25 minutes Kathleen Eisenberg MD Work Phone: [facility] Comment on above: Bladder spasms (Prim maverick Dx); Pelvic pain Start: 10-16-2023 End: 10-16-2023 ambulatory [facility] Start: 09-17-2023 End: 09-17-2023 Emergency department patient visit [facility] Start: 09-07-2023 End: 09-07-2023 Office outpatient visit 15 minutes [facility] [employer] Inspector [facility] Comment on above: Surveillance of cont raceptive implant (Primary Dx) Start: 09-07-2023 End: 09-07-2023 ambulatory ALYCIA S [facility] Start: 08-10-2023 End: 08-11-2023 Emergency department patient visit SEGUNDO FUNES [facility] Start: 05-04-2022 End: 05-05-2022 ambulatory ALYCIAMANJEET RANGELMER Facility:[facility] Start: 09-22-2021 End: 09-23-2021 ambulatory [facility] Facility:[facility] Start: 08-16-2021 End: 08-17-2021 ambulatory [facility] Facility:[facility] Start: 08-24-2018 End: 08-25-2018 Emergency department patient visit ANGIE Salinas LESLIE [facility] Start: 03-24-2018 End: 03-24-2018 Emergency department patient visit ANGIE NELSON [facility] Start: 09-05-2017 Ambulatory Bg Hollislucianokiersten Dhaval F acility:[facility] Procedures Date Procedure Procedure Detail Performing Clinician Start: 02-04-2025 Urine test visual color cmprsn hong Sy APRN-MAGNETOMETER OPERATOR Work Phone: Start: 12-16-2024 Microscopic observation [Identifier] in Cervix by Cyto stain [facility] [employer]er Start: 06-24-2024 Adult depression screening assessment Kathleen Eisenberg MD Work Phone: Start: 01-24-2023 Adult depression screening assessment [facility] [employer] Inspector Start: 12-23-2022 H/O: section S/P repeat low transverse [facility] [employer] Inspector Start: 01-09-2020 Microscopic observation [Identifier] in Cervix by Cyto stain [facility] [employer] Inspector Start: 08-24-2018 Culture bacterial quanttative colony count urine ANGIE NELSON Start: 08-24-2018 Urinalysis microscopic only ANGIE NELSON Start: 08-24-2018 Urnls dip stick/tablet rgnt auto w/o microscopy ANGIE NELSON Start: 08-24-2018 Iaadiadoo influenza ANGIE NELSON Start: 08-24-2018 Assay of lipase ANGIE NELSON Start: 08-24-2018 Blood count complete auto&auto difrntl wbc ANGIE NELSON Start: 08-24-2018 Culture bacterial blood aerobic w/id [...] Td Vaccines (9 - Td or Tdap) [facility] Start: 12-17-2027 Screening for malign ant neoplasm of cervix Pap Smear [facility] Start: 12-16-2025 Adult BMI Screening Adult BMI Screen ing [facility] Start: 12-16-2025 Tobacco Screening Tobacco Screening [facility] Start: 08-19-2025 Adult BMI Screening Adult BMI Screen ing [facility] Start: 08-19-2025 Tobacco Screening Tobacco Screening [facility] Start: 08-05-2025 Adult BMI Screening Adult BMI Screen ing [facility] Start: 08-05-2025 Tobacco Screening Tobacco Screening [facility] Start: 07-26-2025 Adult BMI Screening Adult BMI Screen ing [facility] Start: 07-26-2025 Tobacco Screening Tobacco Screening [facility] Start: 06-24-2025 Adult BMI Screening Adult BMI Screen ing [facility] Start: 06-24-2025 Depression Screening Depression Scre ening [facility] Start: 06-24-2025 Tobacco Screening Tobacco Screening [facility] Start: 05-28-2025 Adult BMI Screening Adult BMI Screen ing [facility] Start: 05-28-2025 Tobacco Screening Tobacco Screening [facility] Start: 05-14-2025 Adult BMI Screening Adult BMI Screen ing [facility] Start: 05-14-2025 Tobacco Screening Tobacco Screening [facility] Start: 02-24-2025 Influenza vaccination Influenza Vacc ine [facility] Start: 12-04-2024 Adult BMI Screening Adult BMI Screen ing [facility] Start: 12-04-2024 Tobacco Screening Tobacco Screening [facility] Start: 11-11-2024 End: 11-11-2024 Patient encounter procedure 11/11/2024 9:15 AM EDT Office Visit [facility] [address] [place] [address] [facility] Start: 10-29-2024 Adult BMI Screening Adult BMI Screen ing [facility] Start: 10-29-2024 Tobacco Screening Tobacco Screening [facility] Start: 10-15-2024 Adult BMI Screening Adult BMI Screen ing [facility] Start: 10-15-2024 Tobacco Screening Tobacco Screening [facility] Start: 09-22-2024 End: 06-24-2025 US Pelvis transabdominal and transvaginal Ultrasound pelvic with transvaginal Imaging Routine Pelvic pain Expected: 09/22/2024 (Approximate), Expires: 06/24/2025 [facility] Work Phone: Comment on above: Expected: 09/22/2024 (Approximate), Expires: 06/24/2025 Start: 09-06-2024 Adult BMI Screening Adult BMI Screen ing [facility] Start: 09-06-2024 Tobacco Screening Tobacco Screening [facility] Start: 08-19-2024 End: 08-19-2024 Patient encounter procedure 08/19/2024 3:30 PM EST Office Visit [facility] [address] [place] [address] Kathleen Eisenberg MD [address] [place], [place] [id number] [facility] Start: 08-19-2024 End: 08-19-2024 Patient encounter procedure 08/19/2024 9:45 AM EST Procedure visit [facility] [address] [place] [address] [facility] Start: 08-05-2024 End: 08-05-2025 US Pelvis transabdominal and transvaginal Ultrasound pelvic with transvaginal Imaging Routine Right ovarian cyst Expected: 08/05/2024, Expires: 08/05/2025 [facility] Work Phone: Comment on above: Expected: 08/05/2024 , Expires: 08/05/2025 Start: 08-05-2024 End: 08-05-2024 Patient encounter procedure 08/05/2024 11:30 AM EST Office Visit [facility] [address] [place] [phone] Kathleen Eisenberg MD [address] [place] [address] [facility] Start: 07-23-2024 End: 07-23-2024 Patient encounter procedure 07/23/2024 3:30 PM EST Office Visit [facility] [place] [phone] Kathleen Eisenberg MD [address] [place] [address] [facility] Start: 06-24-2024 End: 06-24-2024 Patient encounter procedure 06/24/2024 3:30 PM EST Office Visit [facility] [address] [place] [id number] Kathleen Eisenberg MD [address] [place] [address] [facility] Start: 06-11-2024 End: 06-11-2024 Patient encounter procedure 06/11/2024 3:15 PM EST Office Visit [facility] [address] [place] [phone] Kathleen Eisenberg MD [address] [place], [place] [id number] [facility] Start: 05-31-2024 End: 05-31-2024 Patient encounter procedure 05/31/2024 8:30 AM EST Appointment [facility] [address] [place] [phone] Leah Higuera, PSYCHOLOGICAL OPERATIONS OFFICER-MAGNETOMETER OPERATOR [address] [place] [address] [facility] Start: 05-28-2024 End: 05-28-2025 US Pelvis transabdominal and transvaginal Ultrasound pelvic with transvaginal Imaging Routine Dysmenorrhea Menorrhagia with irregular cycle Expected: 05/28/2024, Expires: 05/28/2025 [facility] Work Phone: Comment on above: Expected: 05/28/2024 , Expires: 05/28/2025 Start: 02-25-2024 COVID-19 Vaccine ( season) COVID-19 Vaccine ( season) [facility] Start: 02-25-2024 Influenza vaccination Influenza Vacc ine [facility] Start: 01-25-2024 [facility]: 12-11-2023 End: 12-11-2023 Patient encounter procedure 12/11/2023 3:30 PM EDT Office Visit [facility] [address] [place] [phone] [facility] Start: 11-06-2023 End: 11-06-2023 Patient encounter procedure 11/06/2023 3:30 PM EDT Office Visit [facility] [place] [phone] Kathleen Eisenberg MD [address] [place] [address] [facility] Start: 10-16-2023 End: 10-15-2024 US Retroperitoneum Ultrasound retroperitoneal complete Imaging Routine Bladder spasms Expected: 10/16/2023, Expires: 10/15/2024 [facility] Work Phone: Comment on above: Expected: 10/16/2023 , Expires: 10/15/2024 Start: 02-24-2023 COVID-19 Vaccine () COVID-19 Vaccine () [facility] Start: 01-08-2023 Screening for malign ant neoplasm of cervix Pap Smear [facility] Start: 2015 Adult BMI Follow Up Plan Adult BMI F ollow Up Plan [facility] End: 06-24-2025 Bacteria identified in Urine by Culture Urine culture Microbiology Routine Pelvic pain 1 Occurrences starting 06/24/2024 until 06/24/2025 [facility] Comment on above: 1 Occurrences starti ng 06/24/2024 until 06/24/2025 Bacteria identified in Urine by Culture Urine culture Microbiology Routine Pelvic pain 06/24/2024 7:39 PM EST [facility] End: 10-15-2024 Bacteria identified in Urine by Culture Urine culture Microbiology Routine Pelvic pain 1 Occurrences starting 10/16/2023 until 10/15/2024 [facility] Comment on above: 1 Occurrences starti ng 10/16/2023 until 10/15/2024 Bacteria identified in Urine by Culture Urine culture Microbiology Routine Pelvic pain 10/16/2023 7:51 PM EDT [facility] End: 05-29-2025 CBC panel - Blood by Automated count CBC without diff Lab Routine Dysmenorrhea Menorrhagia with irregular cycle 1 Occurrences starting 05/28/2024 until 05/29/2025 [facility] Comment on above: 1 Occurrences starti ng 05/28/2024 until 05/29/2025 End: 06-24-2025 Chlamydia/GC by PCR Evelin Swab Chlamydia/GC by PCR Evelin Swab Microbiology Routine Pelvic pain 1 Occurrences starting 06/24/2024 until 06/24/2025 [facility] Comment on above: 1 Occurrences starti ng 06/24/2024 until 06/24/2025 Chlamydia/GC by PCR Evelin Swab Chlamydia/GC by PCR Evelin Swab Microbiology Routine Pelvic pain 06/24/2024 6:06 PM [facility] Thin Prep Pap Test Thin Prep Pap Test Pathology and Cytology Routine Screening for cervical cancer 12/16/2024 8:50 AM EDT [facility] Work Phone: End: 05-28-2025 Thyroid profile includes TSH FT4 Thyroid profile includes TSH FT4 Lab Routine Dysmenorrhea Menorrhagia with irregular cycle 1 Occurrences starting 05/28/2024 until 05/28/2025 [facility] Comment on above: 1 Occurrences starti ng 05/28/2024 until 05/28/2025 End: 06-24-2025 Vaginitis Panel PCR Vaginitis Panel PCR Microbiology Routine Pelvic pain 1 Occurrences starting 06/24/2024 until 06/24/2025 [facility] Comment on above: 1 Occurrences starti ng 06/24/2024 until 06/24/2025 Vaginitis Panel PCR Vaginitis Pa radny PCR Microbiology Routine Pelvic pain 06/24/2024 6:06 PM [facility] Immunizations Immunization Date Immunization Notes Care Provider Svetlana lester 03-05-2024 influenza virus vaccine, unspecified formulation Lluvia Ortiz [facility] 03-22-2023 influenza virus vaccine, unspecified formulation Kathleen Eisenberg MD Work Phone: [facility] 11-15-2022 tetanus toxoid, redu bruce diphtheria toxoid, and acellular pertussis vaccine, adsorbed Pfws [employer] Inspector [facility] 03-03-2021 COVID-19, mRNA, LNP- S, PF, 100mcg/0.5mL Dose Pfws [employer] [facility] 02-03-2021 COVID-19, mRNA, LNP- S, PF, 100mcg/0.5mL Dose Pfws [facility] 11-06-2020 tetanus toxoid, redu bruce diphtheria toxoid, and acellular pertussis vaccine, adsorbed Pfws [employer] Inspector [facility] Payers Date Payer Category Payer Self-pay 2022 Medicaid HMO [facility] MEDICAID [id number] 2022 Private Health Insurance [facility] PLAN [id number] 2022-Present [phone] [address] [place] [id number] 2022 Private Health Insurance [id number] 2018 Unknown [id number] 1997 Unknown [id number] 2.16.840.1.535148.3.579. 2.173 1997 Unknown [id number] 2.16.840.1.014944.3.579. 2.176 1997 Unknown [id number] 2.16.840.1.883965.3.579. 2.593 1997 Unknown [id number] 2.16.840.1.777015.3.579. 2.593 1997 Unknown [id number] 2.16.840.1.020859.3.579. 2.593 1997 Unknown [id number] 2.16.840.1.673450.3.579. 2.1286 1997 Unknown [id number] 2.16.840.1.672405.3.579. 2.1285 1997 Unknown [id number] 2.16.840.1.222658.3.579. 2.1285 1997 Unknown [id number] 2.16.840.1.663946.3.579. 2.1285 1997 Unknown [id number] 2.16.840.1.840870.3.579. 2.1285 1997 Unknown [id number] 2.16.840.1.900287.3.579. 2.1285 1997 Unknown [id number] 2.16.840.1.083827.3.579. 2.1285 1997 Unknown [id number] 2.16.840.1.103685.3.579. 2.1285 1997 Unknown [id number] 2..840.1.941400.3.579. 2.1285 1997 Unknown [id number] 2..840.1.556026.3.579. 2.1285 1997 Unknown [id number] 2..840.1.786222.3.579. 2.1285 1997 Unknown [id number] 2.16.840.1.188202.3.579. 2.1285 1997 Unknown [id number] 2.16.840.1.354886.3.579. 2.1285 1997 Unknown [id number] 2.16.840.1.196568.3.579. 2.1285 1997 Unknown [id number] 2.16.840.1.846046.3.579. 2.1285 1997 Unknown [id number] 2.16.840.1.865965.3.579. 2.1285 1997 Unknown [id number] 2.16.840.1.944698.3.579. 2.1285 1997 Unknown [id number] 2.16.840.1.262155.3.579. 2.1286 1997 Unknown [id number] 2.16.840.1.216347.3.579. 2.1285 1997 Unknown [id number] 2.16.840.1.244281.3.579. 2.1285 1997 Unknown [id number] 2.16.840.1.083538.3.579. 2.1285 1997 Unknown [id number] 2.16.840.1.329301.3.579. 2.1285 1997 Unknown [id number] 2.16.840.1.863842.3.579. 2.1285 1997 Unknown [id number] 2.16.840.1.456121.3.579. 2.1285 1997 Unknown [id number] 2.16.840.1.721114.3.579. 2.1285 1997 Unknown [id number] 2.16.840.1.076390.3.579. 2.1285 1997 Unknown [id number] 2.16.840.1.858210.3.579. 2.1285 1997 Unknown [id number] 2.16.840.1.542473.3.579. 2.1286 1959 Unknown [id number] Social History Date Type Detail Facility Start: 05-05-2022 Tobacco smoking stat [facility] Never smoked tobacco [facility] Start: 05-05-2022 Tobacco use and exposure Smokeless tobacco non-user [facility] Start: 06-24-2024 End: 02-04-2025 Alcoholic beverage intake Ex-drinker (finding) [facility] Start: 07-17-2020 End: 06-24-2024 History of Social function [facility] Start: 07-17-2020 End: 06-24-2024 Tobacco use panel [facility] How hard is it for y ou to pay for the very basics like food, housing, medical care, and heating Not hard at all [facility] The thought of silvia connolly myself has occurred to me Never [facility] Start: 06-28-2019 Alcohol Comment socially [facility] Start: 1997 Sex assigned at Not on file [facility] Start: 01-27-2015 Sex Female (finding) [facility] Clinical Notes 09-07-2023 to 02-04-2025 Mars Sy, PSYCHOLOGICAL OPERATIONS OFFICER-MAGNETOMETER OPERATOR - 02/04/2025 9:15 AM EDTKeljena Sy, [facility] - 12/16/2024 8:30 AM EDTTelephone Encounter - Lluvia Ortiz, [facility] - 12/10/2024 2:54 PM EDT Note Date & Type Note Facility 02-04-2025 History of Presen t illness Narrative HPI: on slynd, has nausea with slynd. Has not had menses Has hx htn Does not want nexplanon or iud or depo provera Wants to continue oral pill Denies pelvic pain Has been trying to lose wt and doing well Current contraception: oral progesterone-only contraceptive Relationship status: in a relationship Sexually active: Yes Contraception: oral progesterone-only contraceptive unemployed non-smoker 2 kids- [facility] son has long hair, love halloween The following portions of the patient's history were reviewed and updated as appropriate: allergies, current medications, past family history, past medical history, past social history, past surgical history and problem list. Review of Systems - 10 or more systems reviewed and all negative except stated in hpi. Vitals: 02/04/25 0911 BP: (!) 128/92 Reviewed bp with pt Body mass index is 34.54 kg/m . Patient's last menstrual period was 12/16/2024. Objective: Physical Exam Constitutional: the patient was observed to be alert and in no acute distress. Neck: the appearance of the neck was normal. Pulmonary: no respiratory distress. Vascular:. there was no peripheral edema. Skin: normal skin color and pigmentation. Neurological: the patient was oriented to person, place, and time and mood and affect were appropriate Lia was seen today for medication problem. Diagnoses and all orders for this visit: Encounter for control pills maintenance - norethindrone (MICRONOR) 0.35 mg tablet; Take 1 tablet (0.35 mg total) by mouth in the morning. Discontinue slynd Start micronor Educate on use, side effect, risk, benefit She reports takes ocp consistently on time Stressed importance of that Declines iud, nexplanon or depo control counseling - POCT , urine Declines any other progestin only method Switched from slynd to micronor Educated Follows with pcp for htn Rto annual or sooner prn - Shey Ward CMA 02/04/25 10:56 AM MARS SY APRN-FABY Farias 02/04/25 1058 documented in this encounter [facility] 12-16-2024 History of Presen t illness Narrative Subjective Lia Lim is a 29 y.o. female who presents for annual exam. The patient complains of what she thinks is a blood blister on her right side underwear line. Hurts, is tender, no drainage, denies hx of abscesses Declines std testing today. Menses are absent d/t control slynd, really likes this Current contraception: oral progesterone-only contraceptive History of abnormal Pap smear: no Last pap: January 09, 2020 Neg Family history of uterine or ovarian cancer: no Regular self breast exam: yes Last mammogram: NA Family history of breast cancer: yes - MGGM Family history of colon cancer: no Relationship status: not in a relationship Sexually active: Yes unemployed non-smoker IF Yes , motivated to quit N/A Children YES How many Two Menstrual History: OB History 2 Para 2 Term 2 0 AB 0 Living 2 SAB 0 IAB 0 Ectopic 0 Multiple 0 Live Births 2 Menarche age: 14 Patient's last menstrual period was 07/31/2024 (exact date). The following portions of the patient's history were reviewed and updated as appropriate: allergies, current medications, past family history, past medical history, past social history, past surgical history and problem list. Review of Systems Review of Systems Constitutional: Negative for fever and chills. HENT: Negative for congestion and sore throat. Eyes: Negative for photophobia and visual disturbance. Respiratory: Negative for cough and shortness of breath. Cardiovascular: Negative for chest pain and leg swelling. Gastrointestinal: Negative for vomiting, abdominal pain and diarrhea. Endocrine: Negative for cold intolerance and heat intolerance. Genitourinary: Negative for dysuria, vaginal discharge, difficulty urinating and pelvic pain. Musculoskeletal: Negative for back pain and neck pain. Skin: Negative for rash and wound. Sore in rt groin Neurological: Negative for dizziness and headaches. Psychiatric/Behavioral: Negative for sleep disturbance. The patient is not nervous/anxious. All other systems reviewed and are negative. Denies breast or mole changes Objective Vitals: 12/16/24 0820 BP: 126/84 Body mass index is 35.02 kg/m . General: alert, appears stated age and cooperative Heart: regular rate and rhythm Lungs: clear to auscultation bilaterally Breast: appear normal, no masses, no nipple discharge, no skin changes, no enlarged axillary lymph nodes left nipple inversion, rt is not inverted. She states this is not new- has been like this forever Abdomen: soft, non-tender, without masses or organomegaly Vulva: normal, Bartholin's, Urethra, Climax's normal Vagina: normal mucosa, no lesions Cervix: no cervical motion tenderness, no lesions, PAP done, and pt declines STD/GC/Chl Uterus: normal size, mobile, and nontender Adnexa: normal adnexa and no mass, fullness, tenderness Lymphatics: No abnormally enlarged lymph nodes. Musculoskeletal: Normal rom. No edema noted Skin: Skin color, texture, turgor normal. No rashes or lesions Neuro: Grossly normal, Alert and oriented x 3, gait normal. Psychological: normal mood, behavior, speech, dress, and thought processes Neck: nontender. No obvious enlarged thyroid. 07/26/2024 pelvic ultrasound 1. Enlarging right ovarian cystic structure (5.6 cm versus 4.2 cm on 05/31/2024), though without suspicious features. Follow-up sonographic evaluation in 6-12 months is recommended. 2. Ovaries with preserved vascular flow at the time scanning. Assessment/Plan: Lia was seen today for annual exam. Diagnoses and all orders for this visit: Women's annual routine gynecological examination Discussed breast self-awareness monthly and yearly CBE after age 30 yo. Reviewed breast health precautions and concerns. Discussed Calcium and Vitamin D for prevention of osteoporosis, healthy diet and exercise. Discussed need for yearly mammogram after 40 yo.; however if there is any concern or family history, this screening may begin sooner, Also recommendations may be made by radiology to augment mammograms with MBI or MRI Discussed need for colonoscopy at 45 yo, consider cologuard if declines colonoscopy Recommend Yearly Skin Exams with dermatology Reviewed ASCCP guidelines, pap smear's purpose to detect cervical cancer precursors, role of HPV infection in cervical cancer. Return annually or as discussed, sooner if needed Screening for cervical cancer - Thin Prep Pap Test Surveillance for control, oral contraceptives Refills of slynd sent Doing well Cutaneous abscess of groin Warm moist compresses tid No shaving until better, then new razors Right ovarian cyst Enc to repeat pelvic ultrasound FABY CHUNG APRN-CNP 12/16/24 0910 documented in this encounter [facility] 12-10-2024 Miscellaneous Notes PATIENT NEEDS ANNUAL, Left message to call and schedule a appointment documented in this encounter [facility] 12-10-2024 Telephone encounter Note PATIENT NEEDS ANNUAL, Left message to call and schedule a appointment [facility] 08-19-2024 History of Presen t illness Narrative Procedure: Nexplanon Removal Lia Lim is a 29 y.o. female who presents for removal of Nexplanon. Pt states she wants Nexplanon removed d/t ovarian cysts, wt gain and irregular bleeding which is very heavy. Pt states she wants to discuss different control option. Discussed risks and benefits with patient including infection, bleeding, pain and inability to remove. Written consent obtained. Allergies to antiseptics and anesthetics were ruled out. Procedure note: Area over implant removal site cleansed with Hibiclens. 1% lidocaine injected under the tip of the implant at the removal site. The implant was located by palpation and an incision made over the tip of the implant closest to the elbow. The implant was grasped and removed with forceps. Complete removal was confirmed by measuring the full length of the implant at 4cm. No complications. Hemostasis achieved. Patient tolerated procedure well. Aftercare instructions given. The patient was instructed to remove the dressing after 24 hours and the Steri strips removed after three days. Instructed to keep the area dry for six hours. Patient advised to use OTC analgesics as needed for pain. If site becomes red or has drainage or skin to approximated please call the office. Patient verbalized understanding. MARS SY, PSYCHOLOGICAL OPERATIONS OFFICER-MAGNETOMETER OPERATOR HPI: nexplanon removal- has had break through bleeding. Did not like depo in the past. Would like pills again. 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 Review of Systems - 10 or more systems reviewed and all negative except stated in hpi. Vitals: 08/19/24 0904 BP: 126/84 Body mass index is 36.28 kg/m . Patient's last menstrual period was 07/30/2024 (approximate). Objective: Physical Exam Constitutional: the patient was observed to be alert and in no acute distress. Neck: the appearance of the neck was normal. Pulmonary: no respiratory distress. Vascular:. there was no peripheral edema. Skin: normal skin color and pigmentation. Neurological: the patient was oriented to person, place, and time and mood and affect were appropriate Diagnoses and all orders for this visit: Nexplanon removal Removed today BCP ( control pills) initiation - drospirenone, contraceptive, (SLYND) 4 mg (28) tablet; Take 4 mg by mouth in the morning. Reviewed control options, dosing schedule and need to adhere to prescribed schedule. Use back up method for 2 weeks. Also discussed what to do when a dose is missed, possible side effects of hormone medications such as H/A, irregular bleeding, amenorrhea, breast tenderness and mood changes. The patient was advised of potential complications of control including thromboembolic events, HTN, hyperlipdemia, gallbladder disease and benign liver cysts. She was educated on need to refrain from smoking while taking control. control counseling Reviewed types of control Due to HTN history- avoiding estradiol in her case Reviewed risk, benefit, side effects Would like pills, decided upon slynd Rto 3 month pill check, annual - FABY CHUNG 08/19/24 10:20 AM FABY Chung 08/19/24 1026 documented in this encounter [facility] 08-05-2024 History of Presen t illness Narrative Patient ID: Lia Lim is a 29 y.o. female. Chief Complaint: right ovarian cyst follow up HPI:SUBJECTIVE: Lia Lim is a 29 y.o. female who presents with ER follow up 07/29/24 BPH ovarian cyst had CT and ultrasound done. She is not having pain. After she left the hospital she started bleeding very heavy, which has improved and now she feels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
--- OUTSIDE RECORDS SUMMARY | 2025-02-26 15:00 | XMS_ITS | Encounter Summary ---
Author Organization [facility] tem Address [id number] [address] [place] [address] Care Team Providers Care Clinical Nurse Manager Name Role Phone Alycia Patterson Rubens ASSOC[employer]ATE [employer]-ENROLLMENT CLERK Primary Care Provider Encounter Details Date Type Department Care Team (Late st Contact Info) Description 02/26/2025 3:00 PM EDT Hospital Encounter [facility] - Ultrasound [address] [place] [address] Social History Tobacco Use Types Packs/Day Years [...] of Transportation (Non-Medical) Not on file 12/14/2020 Sandy Depression Scale Answer Date Recorded Sandy Depression Scale Total 22 01/24/2023 The thought [...] as of this encounter Plan of Treatment Scheduled Orders Name Type Priority Associated Diagnoses Orde r Schedule Ultrasound pelvic with transvaginal Imaging Routine Right ovarian cyst Expected: 08/05/2024, Expires: 08/05/2025 documented as of this encounter Visit Diagnoses Not on filedocumented in this encounter Additional Health Concerns Assessment Noted Time PHQ-9 Depression Total Score: 12 06/24/ 024 3:54 PM EST A Body Mass Index follow-up plan has been documented for the patient 04/15/2021 1:40 PM EDT documented as of this encounter Care Teams Clinical Nurse Manager Relationship Specialty Start Date End Date Alycia Patterson, ASSOCIATE [employer]-ENROLLMENT CLERK [address] [facility], [place] [address] PCP - General Family Medicine 05/12/24 documented as of this encounter
== END 2025-02-26 09:20 | disposition home or self-care (01) ==
LOC: LAB 09:20
PROVIDERS: PCP Nurse Practitioner Family; Visit Provider Nurse Practitioner Family
DX: N92.0 Excessive and frequent menstruation with regular cycle (principal)
CPT/HCPCS: 36415; 84702